=== PATIENT | female | born 1935 | race Caucasian/White ===

== ENCOUNTER 2018-11-18 14:39 | Inpatient (IN) | payer MEDICARE, MEDICAID, SELFPAY ==
[2018-11-18] VITALS (15 sets, daily range): BP systolic 83–108; BP diastolic 35–73; PULSE 82–136; RESP 15–24; TEMP 36.9; O2SAT 92–99; BMI 30.9; BMI 29.7; BMI 29.8
--- NOTE | 2018-11-18 15:21 | EKG12_ITS ---
Test Reason : AFIB Blood Pressure : / mmHG Vent. Rate : 131 BPM Atrial Rate : 141 BPM P-R Int : 000 ms QRS Dur : 068 ms QT Int : 278 ms P-R-T Axes : 000 022 196 degrees QTc Int : 410 ms Atrial fibrillation with rapid ventricular response ST & T wave abnormality, consider inferior ischemia Abnormal ECG Confirmed by JUNO GEORGE, GEMA ([id number]), editor publications ESTEPHANIA WRIGHT ([id number]) on 11/21/2018 10:48:10 AM Referred By: SHANTEL Confirmed By:GEMA FRAIRE MD
--- NOTE | 2018-11-18 15:30 | ED.DCSUM_ITS ---
- ER Visit Summary Date of Service: 11/18/18 Chief Complaint: A. fib with RVR History of Present Illness: The patient is a 83 M presenting with A. fib with RVR. Patient was in sinus rhythm at the start of dialysis and by the end of dialysis she was in A. fib with RVR. She states she has felt chills and ge neralized weakness. She has a mild cough. She denies chest pain or shortness of breath. She otherwise feels at her baseline. She has history of A. fib but is not chronically in A. fib. Physical Examination: Blood pressure 84/71, heart rate 136, respiratory rate 24. Patient is afebrile. Alert no acute distress. HEENT exam is unremarkable. Neck is supple. Lungs are clear and equal bilaterally. Heart is irregularly irregular Abdomen is soft nontender nondistended. Extremities are unremarkable. Skin is warm and dry. No focal neurologic deficit. Remainder of exam is unremarkable. Emergency Department Course and Treatment: EKG A. fib with RVR rate of [address] depression. She was given a 250 cc IV fluid bolus and digoxin IV. She has allergies to calcium channel blockers and beta-blockers. Chest xray shows small bilateral effusions worse on the left side with left lower lobe atelectasis and/or infiltrate and right basilar atelectasis. This is all superimposed on CHF. CBC shows white count 15.6, hemoglobin 10.2. Chemistries show chloride 95, CO2 33, glucose 140, creatinine 3.15. Troponin 0.050. Lactic acid 2.1. Patient has subjective fever, white count, cough and possible infiltrate on chest x-ray. Her systolic pressure is in the high 90s with a heart rate 115 range. Discussed with the hospitalist who recommends amiodarone drip. This was started in the ED. Blood cultures were sent and she was given Invanz IV. Patient will be admitted. Disposition: Admission Impression: A. fib with RVR, end-stage renal disease, CAP This note was generated with MD Revolution dictation software. It may contain incorrect words, spelling, and punctuation that were not noted in review of the chart prior to signing
--- NOTE | 2018-11-18 15:34 | RAD_ITS ---
STUDY: X-RAY CHEST REASON FOR EXAM: Male, 83 years old. Chest pain and shortness of breath. TECHNIQUE: Single AP portable view of the chest. COMPARISON: None. FINDINGS: A right-sided double catheter is seen with the tip in the right atrium. EKG electrodes are seen. A left-sided portacatheter is present with the tip at the junction of the superior vena cava and right atrium. Small left pleural effusion with left basilar atelectasis and/or infiltration. This is superimposed on mild degree of CHF. Mild degree of right basilar atelectasis and blunting of the right costo phrenic angle. There is mild cardiac enlargement. Normal mediastinum and andreina. Normal visualized pulmonary arteries. There is atherosclerotic calcification of the aortic arch with tortuosity. There are diffuse degenerative changes of the visualized thoracic spine. Normal visualized ribs, clavicles, and shoulders. There is no demonstrated abnormality of the visualized soft tissue structures of the upper abdomen. RAD/Chest 1 View (Portable) IMPRESSION: Small bilateral effusions worse on the left side with left lower lobe atelectasis and/or infiltrate and right basilar atelectasis. This is all superimposed on CHF. Electronically Signed: Donte Frankel, at 15:53 EDT , Service support ,
[2018-11-18] MEDS: Digoxin 250 MCG/ML Ampul IV ×2 (15:40→21:49)
[2018-11-18 15:51] LABS: Absolute Lymphocyte Count 1.28 X10^3/ul (0.83-4.51); Absolute Neutrophil Count 12.8 X10^3/uL (2.0-7.7); Basophil# 0.04 X10^3/uL; Basophil% 0.3 % (0-1); Eosinophil# 0.19 X10^3/uL; Eosinophils% 1.2 % (0-5); Hematocrit 36.7 % (40-54); Hemoglobin 10.2 g/dl (13.0-16.5); Lymphocyte # 1.28 X10^3/ul (4.0); Lymphocyte % 8.2 % (19-41); Mean Corp Hgb Conc 27.8 g/gl (32-36); Mean Corpuscular Hgb 28.5 pg (27.0-32.0); Mean Corpuscular Volume 102.5 fL (80-94); Mean Platelet Vol. 9.5 fl (6.2-12.0); Monocyte% 7.7 % (0-10); Neutrophil # 12.81 X10^3/uL (2.7-7.7); Platelet Count 345 K/mm3 (150-450); RBC Distribution Width CV 19.8 % (11.6-14.6); RBC Distribution Width SD 72.9 fl (35.1-43.9); Red Blood Count 3.58 M/mm3 (4.6-6.2); White Blood Count 15.6 K/mm3 (4.4-11.0)
[2018-11-18 15:55] LABS: Differential Indicated SCAN CRITERIA MET; POSITIVE COUNT NO; POSITIVE DIFFERENTIAL NO; POSITIVE MORPHOLOGY YES
[2018-11-18 15:59] LABS: Anion Gap 11 (5-15); BUN 14 mg/dL (7-18); BUN/Creat Ratio 4.4 RATIO (10-20); Calcium,Total 8.6 mg/dL (8.5-10.1); Chloride 95 mmol/L (98-107); Creatinine, Serum 3.15 mg/dL (0.70-1.30); EST Glomerular Filtration Rate 20 mL/min (>60); Est Glom Filt Rate - Afr Amer 25 mL/min (>60); Estimated Creatinine Clearance 13.01 ml/min; Glucose 140 mg/dL (74-106); Sodium Level 139 mmol/L (136-145)
[2018-11-18 16:07] LABS: Lactic Acid 2.1 mmol/L (0.4-2.0)
--- NOTE | 2018-11-18 16:11 | ED.RN ---
notified Dr. Nolasco of lactic 2.1
[2018-11-18 16:22] LABS: Differential Comment SCANNED
[2018-11-18 16:33] LABS: International Normalized Ratio 2.9; Prothrombin Time (Protime)PT. 30.8 SECONDS (11.7-14.9)
--- NOTE | 2018-11-18 17:14 | PCM.HP.STD ---
<Mckay Hogan - Last Filed: 11/18/18 17:39> Problem List (1) Atrial fibrillation with RVR Status: Acute (2) Pneumonia Status: Acute (3) Severe sepsis Status: Acute (4) Diabetes Status: Chronic Qualifiers: Diabetes mellitus type: type 2 (5) ESRD (end stage renal disease) Status: Chronic (6) COPD (chronic obstructive pulmonary disease) Status: Chronic (7) Iron deficiency anemia Status: Chronic (8) HLD (hyperlipidemia) Status: Chronic (9) CHF (congestive heart failure) Status: Chronic (10) Chronic respiratory failure with hypoxia Status: Chronic History of Present Illness Date of Admission: 11/18/18 Chief Complaint: chills The patient is a 83 year old F with pmhx of paroxysmal afib, ESRD, CHF (unclear subtype), COPD, chronic hypoxic respiratory failure, chronic anemia, DMt2, who presents to the ER from [facility] with c/o chills. She was recently admitted to [facility] and in the ICU for 11 days being treated for pneumonia and CHF, and was DCd to [facility]. This morning she woke up with chills and went to dialysis, told she did not look right and was sent to the ER. She was found to have Afib with RVR. She also appeared to have septic with leukocytosis, tachycardia, lactic acidosis, + tachypnea. She has an ongoing productive cough which started this past week, and is mildly SOB - although she is not hypoxic with her home dose of O2 - 2 lpm via NC. She was given digoxin in the ER and is starting amio, still tachy into the 110-120 range during interview. She has no chest pain or palpitations. She takes toprol despite her listed metoprolol allergy. 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 She denies dysuria, but her family states that she gets frequent UTI's despite not feeling dysuria. She does do dialysis here in [place] however her lens hardener does not come here. She reiterated her desire to be DNR CCA with no CPR/Intubation, confirmed with family present. [] Past Medical History Past Medical History (Chronic Problems): Chronic Problems Diabetes (Chronic) ESRD (end stage renal disease) (Chronic) COPD (chronic obstructive pulmonary disease) (Chronic) Iron deficiency anemia (Chronic) HLD (hyperlipidemia) (Chronic) CHF (congestive heart failure) (Chronic) Chronic respiratory failure with hypoxia (Chronic) Allergies amlodipine [From Norvasc] Allergy (Verified 11/18/18 15:12) Other atorvastatin [From Lipitor] Allergy (Verified 11/18/18 15:12) Other ciprofloxacin [From Cipro] Allergy (Verified 11/18/18 15:12) Other fentanyl Allergy (Verified 11/18/18 15:12) Other metoprolol [From Lopressor] Allergy (Verified 11/18/18 15:12) Other morphine Allergy (Verified 11/18/18 15:12) Other prochlorperazine [From Compazine] Allergy (Verified 11/18/18 15:12) Other rofecoxib [From Vioxx] Allergy (Verified 11/18/18 15:12) Other rosuvastatin [From Crestor] Allergy (Verified 11/18/18 15:12) Other Home Medications: Ambulatory Orders Medication Instructions Recorded Acetaminophen [Tylenol] 650 mg PO Q4H PRN PRN 11/18/18 Ascorbic Acid [Vitamin C] 500 mg PO DAILY@0800 11/18/18 Aspirin [Aspirin, Baby] 81 mg PO DAILY@0800 11/18/18 Atorvastatin Calcium [Lipitor] 40 mg PO QHS 11/18/18 Cholecalciferol (VIT D3) [Vitamin 1,000 unit PO DAILY 11/18/18 D] Docusate Sodium [Colace] 100 mg PO BID 11/18/18 Ferrous Sulfate [Iron] 325 mg PO DAILY 11/18/18 Gabapentin [Neurontin] 100 mg PO DAILY 11/18/18 Insulin Detemir [Levemir Flextouch] 8 unit SQ DAILY 11/18/18 Melatonin/Pyridoxine HCl (B6) 1 each PO QHS 11/18/18 [Melatonin 1 mg Tablet] Metoprolol Succinate [Toprol Xl] 50 mg PO BID 11/18/18 Multivitamin with Minerals 1 tab PO DAILY 11/18/18 [Multiple Vitamin] Omeprazole 20 mg PO DAILY 11/18/18 Rivaroxaban [Xarelto] 15 mg PO DAILY 11/18/18 Surgical History: hysterectomy, - - Left knee, Right leg, C sections Psychiatric History: No pertinent psych hx GUEST RELATIONS COORDINATOR History: No pertinent GUEST RELATIONS COORDINATOR history Lives: Care Home Smoking Status: Never smoker Tobacco Use: Non-smoker Alcohol: None Drugs: None - *Family History Maternal History Items: Stroke Paternal History Items: Cancer - leukemia Review of Systems Constitutional: Reports: Chills, Weakness, Fatigue. Denies: Fever, Weight Change HEENT: Denies: Head Aches, Sinus Congestion, Sinus Drainage Cardiovascular: Denies: Chest Pain, Chest Pressure, Chest Tightness, Edema, Heaviness, Light Headedness, Palpitations, Syncope Respiratory: Reports: Cough, Shortness of Breath, Shortness of breath at rest, Shortness of breath upon exertion, Sputum production. Denies: Wheezing Gastrointestinal: Denies: Abdominal Pain, Diarrhea, Nausea, Vomiting Genitourinary: Denies: Dysuria, Frequency, Urgency Musculoskeletal: Denies: Joint Pain, Joint Tenderness Skin: Denies: Rash, Wounds Neurological: Denies: Numbness, Tingling, Focal weakness Psychiatric: Denies: Anxiety, Depression, Homicidal Ideations, Suicidal Ideations Hematologic/ Lymphatic: Denies: Easy Bruising, Easy Bleeding VTE Information - Inpt Only VTE Present on Admission: No VTE Mechan Device Prophylaxis: None VTE Pharm Prophylaxis ordered?: Yes Patient Problems: Active and Suspected Problems Atrial fibrillation with RVR (Acute) Pneumonia (Acute) Severe sepsis (Acute) - Physical Exam General: Alert, Oriented x3, Cooperative HEENT: Atraumatic, PERRLA, EOMI, Normocephalic Neck: Supple, No JVD, Negative Carotid Bruits Lungs: Diminished, Rales Cardiovascular: Regular rate, No murmurs Abdomen: Bowel Sounds Present, Soft, Non Tender Extremities: No edema, Capillary Refill Less than 3 Seconds Skin: No rashes, No breakdown Musculoskeletal: No Tenderness to Palpation of Joints or Extremities Neurological: Cranial nerves II-XII grossly intact Psych/Mental Status: Normal Affect, Appropriate Vital Signs Temp Pulse Resp BP Pulse Ox 98.4 F 127 H 17 93/73 99 11/18/18 14:40 11/18/18 15:47 11/18/18 15:47 11/18/18 15:47 11/18/18 15:47 Oxygen Flow Rate (L/min) 2 Oxygen Delivery Method Nasal Cannula Weight: 158 lb 11.725 oz Body Mass Index (BMI) 30.9 Microbiology Past 72 Hours 11/18/18 15:35 Influenza Types A,B Direct FA (RAEGAN) - Final Mucosa - Nose Laboratory Tests Past 24 Hrs 11/18/18 11/18/18 11/18/18 15:30 15:30 15:30 WBC 15.6 H RBC 3.58 L Hgb 10.2 L Hct 36.7 L MCV 102.5 H MCH 28.5 MCHC 27.8 L RDW 19.8 H RDW Differential 72.9 H Plt Count 345 MPV 9.5 Immature Gran % (Auto) 0.600 Neut % (Auto) 82.0 H Lymph % (Auto) 8.2 L Andrew % (Auto) 7.7 Eos % (Auto) 1.2 Baso % (Auto) 0.3 Absolute Neuts (auto) 12.8 H Absolute Lymphs (auto) 1.28 Total Counted Not Reportable Differential Comment SCANNED PT INR Sodium 139 Potassium 4.0 Chloride 95 L Carbon Dioxide 33.0 H Anion Gap 11 BUN 14 Creatinine 3.15 H Estim Creat Clear Calc 13.01 Est GFR (MDRD) Af Amer 25 L Est GFR (MDRD) Non-Af 20 L BUN/Creatinine Ratio 4.4 L Glucose 140 H Lactic Acid 2.1 H Calcium 8.6 Troponin I 0.050 H 11/18/18 15:30 WBC RBC Hgb Hct MCV MCH MCHC RDW RDW Differential Plt Count MPV Immature Gran % (Auto) Neut % (Auto) Lymph % (Auto) Andrew % (Auto) Eos % (Auto) Baso % (Auto) Absolute Neuts (auto) Absolute Lymphs (auto) Total Counted Differential Comment PT 30.8 H INR 2.9 Sodium Potassium Chloride Carbon Dioxide Anion Gap BUN Creatinine Estim Creat Clear Calc Est GFR (MDRD) Af Amer Est GFR (MDRD) Non-Af BUN/Creatinine Ratio Glucose Lactic Acid Calcium Troponin I Assessment/Plan All Active Problems Atrial fibrillation with RVR (Acute) Pneumonia (Acute) Severe sepsis (Acute) 1. Afib with RVR - likely 2/2 sepsis. Continue metoprolol. Received dig in ER, started amiodarone ER. No palpitations. Already on Xarelto. 2. Acute severe sepsis secondary to suspected healthcare associated pneumonia-was recently admitted to [facility] and in the ICU for 11 days with pneumonia and congestive heart failure and discharged 2 weeks ago. She does have a productive cough that developed this past week, and woke up with significant chills today. She does have significant leukocytosis and signs of sepsis including lactic acidosis, tachypnea, tachycardia. There is also possibility that this could be driven by urinary tract infection as she frequently has these in the past. will check urinalysis and culture. Received meropenem in the ER. We will continue antibiotics with vancomycin and Zosyn. MRSA screen, culture sputum, check urine antigens, blood culture pending. 3. End-stage renal disease-consult nephrology for ongoing dialysis 4. Hx CHF unclear subtype - no increased LE edema, CXR shows CHF however no hypoxia at this time. Check BNP, obtain records including echo from recent stay at [facility]. 5. COPD with chronic hypoxic respiratory failure - this does not appear to be an acute exacerbation. Continue aerosols, incentive spirometer. Baseline O2 is 2lpm NC. 6. T2DM with obesity - continue levemir, add SSI, dietary eval 7. Debility - SNF resident - return at DC 8. Iron def. anemia - continue po iron 9. HLD - on statin CODE STATUS: discussed with family + patient DNRCCA no CPR no intubation. DVT ppx: on xarelto DC planning: return to snf This patient was seen by Mckay Hogan PA-C under the supervision of Doctor Luigi. <Sanchez Meyers - Last Filed: 11/18/18 21:34> History of Present Illness The patient is a 83 year old F with multiple comorbidities as listed above was sent to ER from initiated on SNF for chills mild shortness of breath after she completed dialysis. Patient did not had subjective feeling of shortness of breath, chest tightness, flulike symptoms, fever. She was recently discharged from [facility] as mentioned above. Labs are abnormal for leukocytosis, 15.6 thousand with left shift, lactic acid 2.1, mildly elevated troponin. She is on hemodialysis [] Past Medical History Allergies amlodipine [From Norvasc] Allergy (Verified 11/18/18 15:12) Other atorvastatin [From Lipitor] Allergy (Verified 11/18/18 15:12) Other ciprofloxacin [From Cipro] Allergy (Verified 11/18/18 15:12) Other fentanyl Allergy (Verified 11/18/18 15:12) Other metoprolol [From Lopressor] Allergy (Verified 11/18/18 15:12) Other morphine Allergy (Verified 11/18/18 15:12) Other prochlorperazine [From Compazine] Allergy (Verified 11/18/18 15:12) Other rofecoxib [From Vioxx] Allergy (Verified 11/18/18 15:12) Other rosuvastatin [From Crestor] Allergy (Verified 11/18/18 15:12) Other - Physical Exam General: Alert, Oriented x3, Cooperative HEENT: Atraumatic, PERRLA, EOMI, Normocephalic Neck: Supple, No JVD, Negative Carotid Bruits Lungs: Diminished - Air entry is diminished bilaterally., Rales, Short of Breath - Mild short of breath Cardiovascular: Normal S1, Normal S2, No murmurs, Irregular Rate, Tachycardic Abdomen: Bowel Sounds Present, Soft, Non Tender, Non-Distended Extremities: No edema, Capillary Refill Less than 3 Seconds, Edema Skin: No rashes, No breakdown, - - Mild redness nonblanching erythema on bilateral heels, stage I decubitus ulcer. Musculoskeletal: No Tenderness to Palpation of Joints or Extremities, Arthritic Changes, Muscle Wasting Lymphatic: Cervical Adenopathy Neurological: Cranial nerves II-XII grossly intact, Deep Tendon Reflexes 2+/4 and Symmetrical, Neuro grossly intact Psych/Mental Status: Normal Affect, Appropriate Vital Signs Temp Pulse Resp BP Pulse Ox 98.4 F 95 19 H 93/38 L 97 11/18/18 14:40 11/18/18 21:00 11/18/18 21:00 11/18/18 21:00 11/18/18 21:00 Oxygen Flow Rate (L/min) 1 Oxygen Delivery Method Nasal Cannula Weight: 152 lb 5.431 oz Body Mass Index (BMI) 29.7 Microbiology Past 72 Hours 11/18/18 15:35 Influenza Types A,B Direct FA (RAEGAN) - Final Mucosa - Nose Laboratory Tests Past 24 Hrs 11/18/18 11/18/18 11/18/18 15:30 15:30 15:30 WBC 15.6 H RBC 3.58 L Hgb 10.2 L Hct 36.7 L MCV 102.5 H MCH 28.5 MCHC 27.8 L RDW 19.8 H RDW Differential 72.9 H Plt Count 345 MPV 9.5 Immature Gran % (Auto) 0.600 Neut % (Auto) 82.0 H Lymph % (Auto) 8.2 L Andrew % (Auto) 7.7 Eos % (Auto) 1.2 Baso % (Auto) 0.3 Absolute Neuts (auto) 12.8 H Absolute Lymphs (auto) 1.28 Total Counted Not Reportable Differential Comment SCANNED PT INR Sodium 139 Potassium 4.0 Chloride 95 L Carbon Dioxide 33.0 H Anion Gap 11 BUN 14 Creatinine 3.15 H Estim Creat Clear Calc 13.01 Est GFR (MDRD) Af Amer 25 L Est GFR (MDRD) Non-Af 20 L BUN/Creatinine Ratio 4.4 L Glucose 140 H Lactic Acid 2.1 H Calcium 8.6 Troponin I 0.050 H B-Natriuretic Peptide MRSA (PCR) 11/18/18 11/18/18 11/18/18 15:30 15:30 19:15 WBC RBC Hgb Hct MCV MCH MCHC RDW RDW Differential Plt Count MPV Immature Gran % (Auto) Neut % (Auto) Lymph % (Auto) Andrew % (Auto) Eos % (Auto) Baso % (Auto) Absolute Neuts (auto) Absolute Lymphs (auto) Total Counted Differential Comment PT 30.8 H INR 2.9 Sodium Potassium Chloride Carbon Dioxide Anion Gap BUN Creatinine Estim Creat Clear Calc Est GFR (MDRD) Af Amer Est GFR (MDRD) Non-Af BUN/Creatinine Ratio Glucose Lactic Acid Calcium Troponin I 0.071 H B-Natriuretic Peptide 702.7 H MRSA (PCR) 11/18/18 11/18/18 20:05 20:50 WBC RBC Hgb Hct MCV MCH MCHC RDW RDW Differential Plt Count MPV Immature Gran % (Auto) Neut % (Auto) Lymph % (Auto) Andrew % (Auto) Eos % (Auto) Baso % (Auto) Absolute Neuts (auto) Absolute Lymphs (auto) Total Counted Differential Comment PT INR Sodium Potassium Chloride Carbon Dioxide Anion Gap BUN Creatinine Estim Creat Clear Calc Est GFR (MDRD) Af Amer Est GFR (MDRD) Non-Af BUN/Creatinine Ratio Glucose Lactic Acid 1.6 Calcium Troponin I B-Natriuretic Peptide MRSA (PCR) Pending Assessment/Plan This patient was seen in conjunction with Mckay AZEVEDO. I have independently interviewed and examined the patient and reviewed pertinent history, examination findings, laboratory and plan of management. I have reviewed the note and agree with the documented findings with the few additional points. In brief, patient is admitted for A. fib with RVR probably related to sepsis although exact focus is unclear. Patient running low blood pressure in the upper 90s. On amiodarone drip. Patient is allergic to beta-graeme and calcium channel graeme. If the blood pressure drops, MAP BP less than 65 mmHg, give digoxin 0.25 mg IV 1 dose. Patient on Xarelto. Consult cardiology for A. fib difficult to control heart rate and maintain blood pressure. Landscape Crew Leader is consulted. I have discussed my assessment with Mckay AZEVEDO and orders have been reviewed. Code Visit Inpatient E&M: 58161 Init Hosp L3
--- NOTE | 2018-11-18 17:34 | HP.PCM_ITS ---
<Mckay Hogan - Last Filed: 11/18/18 17:39> Problem List (1) Atrial fibrillation with RVR Status: Acute (2) Pneumonia Status: Acute (3) Severe sepsis Status: Acute (4) Diabetes Status: Chronic Qualifiers: Diabetes mellitus type: type 2 (5) ESRD (end stage renal disease) Status: Chronic (6) COPD (chronic obstructive pulmonary disease) Status: Chronic (7) Iron deficiency anemia Status: Chronic (8) HLD (hyperlipidemia) Status: Chronic (9) CHF (congestive heart failure) Status: Chronic (10) Chronic respiratory failure with hypoxia Status: Chronic History of Present Illness Date of Admission: 11/18/18 Chief Complaint: chills The patient is a 83 year old F with pmhx of paroxysmal afib, ESRD, CHF (unclear subtype), COPD, chronic hypoxic respiratory failure, chronic anemia, DMt2, who presents to the ER from [facility] with c/o chills. She was recently admitted to [facility] and in the ICU for 11 days being treated for pneumonia and CHF, and was DCd to SNF. This morning she woke up with chills and went to d ialysis, told she did not look right and was sent to the ER. She was found to have Afib with RVR. She also appeared to have septic with leukocytosis, tachycardia, lactic acidosis, + tachypnea. She has an ongoing productive cough which started this past week, and is mildly SOB - although she is not hypoxic with her home dose of O2 - 2 lpm via NC. She was given digoxin in the ER and is starting amio, still tachy into the 110-120 range during interview. She has no chest pain or palpitations. She takes toprol despite her listed metoprolol allergy. Her endband sizer is in [place]. She denies dysuria, but her family states that she gets frequent UTI's despite not feeling dysuria. She does do dialysis here in [place] however her milk bottler does not come here. She reiterated her desire to be DNR CCA with no CPR/Intubation, confirmed with family present. [] Past Medical History Past Medical History (Chronic Problems): Chronic Problems Diabetes (Chronic) ESRD (end stage renal disease) (Chronic) COPD (chronic obstructive pulmonary disease) (Chronic) Iron deficiency anemia (Chronic) HLD (hyperlipidemia) (Chronic) CHF (congestive heart failure) (Chronic) Chronic respiratory failure with hypoxia (Chronic) Allergies amlodipine [From Norvasc] Allergy (Verified 11/18/18 15:12) Other atorvastatin [From Lipitor] Allergy (Verified 11/18/18 15:12) Other ciprofloxacin [From Cipro] Allergy (Verified 11/18/18 15:12) Other fentanyl Allergy (Verified 11/18/18 15:12) Other metoprolol [From Lopressor] Allergy (Verified 11/18/18 15:12) Other morphine Allergy (Verified 11/18/18 15:12) Other prochlorperazine [From Compazine] Allergy (Verified 11/18/18 15:12) Other rofecoxib [From Vioxx] Allergy (Verified 11/18/18 15:12) Other rosuvastatin [From Crestor] Allergy (Verified 11/18/18 15:12) Other Home Medications: Ambulatory Orders Medication Instructions Recorded Acetaminophen [Tylenol] 650 mg PO Q4H PRN PRN 11/18/18 Ascorbic Acid [Vitamin C] 500 mg PO DAILY@0800 11/18/18 Aspirin [Aspirin, Baby] 81 mg PO DAILY@0800 11/18/18 Atorvastatin Calcium [Lipitor] 40 mg PO QHS 11/18/18 Cholecalciferol (VIT D3) [Vitamin 1,000 unit PO DAILY 11/18/18 D] Docusate Sodium [Colace] 100 mg PO BID 11/18/18 Ferrous Sulfate [Iron] 325 mg PO DAILY 11/18/18 Gabapentin [Neurontin] 100 mg PO DAILY 11/18/18 Insulin Detemir [Levemir Flextouch] 8 unit SQ DAILY 11/18/18 Melatonin/Pyridoxine HCl (B6) 1 each PO QHS 11/18/18 [Melatonin 1 mg Tablet] Metoprolol Succinate [Toprol Xl] 50 mg PO BID 11/18/18 Multivitamin with Minerals 1 tab PO DAILY 11/18/18 [Multiple Vitamin] Omeprazole 20 mg PO DAILY 11/18/18 Rivaroxaban [Xarelto] 15 mg PO DAILY 11/18/18 Surgical History: hysterectomy, - - Left knee, Right leg, C sections Psychiatric History: No pertinent psych hx DIGESTER HAND History: No pertinent DIGESTER HAND history Lives: [facility] Smoking Status: Never smoker Tobacco Use: Non-smoker Alcohol: None Drugs: None - *Family History Maternal History Items: Stroke Paternal History Items: Cancer - leukemia Review of Systems Constitutional: Reports: Chills, Weakness, Fatigue. Denies: Fever, Weight Change HEENT: Denies: Head Aches, Sinus Congestion, Sinus Drainage Cardiovascular: Denies: Chest Pain, Chest Pressure, Chest Tightness, Edema, Heaviness, Light Headedness, Palpitations, Syncope Respiratory: Reports: Cough, Shortness of Breath, Shortness of breath at rest, Shortness of breath upon exertion, Sputum production. Denies: Wheezing Gastrointestinal: Denies: Abdominal Pain, Diarrhea, Nausea, Vomiting Genitourinary: Denies: Dysuria, Frequency, Urgency Musculoskeletal: Denies: Joint Pain, Joint Tenderness Skin: Denies: Rash, Wounds Neurological: Denies: Numbness, Tingling, Focal weakness Psychiatric: Denies: Anxiety, Depression, Homicidal Ideations, Suicidal Ideations Hematologic/ Lymphatic: Denies: Easy Bruising, Easy Bleeding VTE Information - Inpt Only VTE Present on Admission: No VTE Mechan Device Prophylaxis: None VTE Pharm Prophylaxis ordered?: Yes Patient Problems: Active and Suspected Problems Atrial fibrillation with RVR (Acute) Pneumonia (Acute) Severe sepsis (Acute) - Physical Exam General: Alert, Oriented x3, Cooperative HEENT: Atraumatic, PERRLA, EOMI, Normocephalic Neck: Supple, No JVD, Negative Carotid Bruits Lungs: Diminished, Rales Cardiovascular: Regular rate, No murmurs Abdomen: Bowel Sounds Present, Soft, Non Tender Extremities: No edema, Capillary Refill Less than 3 Seconds Skin: No rashes, No breakdown Musculoskeletal: No Tenderness to Palpation of Joints or Extremities Neurological: Cranial nerves II-XII grossly intact Psych/Mental Status: Normal Affect, Appropriate Vital Signs Temp Pulse Resp BP Pulse Ox 98.4 F 127 H 17 93/73 99 11/18/18 14:40 11/18/18 15:47 11/18/18 15:47 11/18/18 15:47 11/18/18 15:47 Oxygen Flow Rate (L/min) 2 Oxygen Delivery Method Nasal Cannula Weight: 158 lb 11.725 oz Body Mass Index (BMI) 30.9 Microbiology Past 72 Hours 11/18/18 15:35 Influenza Types A,B Direct FA (RAEGAN) - Final Mucosa - Nose Laboratory Tests Past 24 Hrs 11/18/18 11/18/18 11/18/18 15:30 15:30 15:30 WBC 15.6 H RBC 3.58 L Hgb 10.2 L Hct 36.7 L MCV 102.5 H MCH 28.5 MCHC 27.8 L RDW 19.8 H RDW Differential 72.9 H Plt Count 345 MPV 9.5 Immature Gran % (Auto) 0.600 Neut % (Auto) 82.0 H Lymph % (Auto) 8.2 L [place] % (Auto) 7.7 Eos % (Auto) 1.2 Baso % (Auto) 0.3 Absolute Neuts (auto) 12.8 H Absolute Lymphs (auto) 1.28 Total Counted Not Reportable Differential Comment SCANNED PT INR Sodium 139 Potassium 4.0 Chloride 95 L Carbon Dioxide 33.0 H Anion Gap 11 BUN 14 Creatinine 3.15 H Estim Creat Clear Calc 13.01 Est GFR (MDRD) Af Amer 25 L Est GFR (MDRD) Non-Af 20 L BUN/Creatinine Ratio 4.4 L Glucose 140 H Lactic Acid 2.1 H Calcium 8.6 Troponin I 0.050 H 11/18/18 15:30 WBC RBC Hgb Hct MCV MCH MCHC RDW RDW Differential Plt Count MPV Immature Gran % (Auto) Neut % (Auto) Lymph % (Auto) [place] % (Auto) Eos % (Auto) Baso % (Auto) Absolute Neuts (auto) Absolute Lymphs (auto) Total Counted Differential Comment PT 30.8 H INR 2.9 Sodium Potassium Chloride Carbon Dioxide Anion Gap BUN Creatinine Estim Creat Clear Calc Est GFR (MDRD) Af Amer Est GFR (MDRD) Non-Af BUN/Creatinine Ratio Glucose Lactic Acid Calcium Troponin I Assessment/Plan All Active Problems Atrial fibrillation with RVR (Acute) Pneumonia (Acute) Severe sepsis (Acute) 1. Afib with RVR - likely 2/2 sepsis. Continue metoprolol. Received dig in ER, started amiodarone ER. No palpitations. Already on Xarelto. 2. Acute severe sepsis secondary to suspected healthcare associated pneumonia- was recently admitted to [facility] and in the ICU for 11 days with pneumonia and congestive heart failure and discharged 2 weeks ago. She does have a productive cough that developed this past week, and woke up with significant chills today. She does have significant leukocytosis and signs of sepsis including lactic acidosis, tachypnea, tachycardia. There is also possibility that this could be driven by urinary tract infection as she frequently has these in the past. will check urinalysis and culture. Received meropenem in the ER. We will continue antibiotics with vancomycin and Zosyn. MRSA screen, culture sputum, check urine antigens, blood culture pending. 3. End-stage renal disease-consult nephrology for ongoing dialysis 4. Hx CHF unclear subtype - no increased LE edema, CXR shows CHF however no hypoxia at this time. Check BNP, obtain records including echo from recent stay at [facility]. 5. COPD with chronic hypoxic respiratory failure - this does not appear to be an acute exacerbation. Continue aerosols, incentive spirometer. Baseline O2 is 2lpm NC. 6. T2DM with obesity - continue levemir, add SSI, dietary eval 7. Debility - SNF resident - return at DC 8. Iron def. anemia - continue po iron 9. HLD - on statin CODE STATUS: discussed with family + patient DNRCCA no CPR no intubation. DVT ppx: on xarelto DC planning: return to snf This patient was seen by Mckay Hogan PA-C under the supervision of Doctor Luigi. <Sanchez Meyers - Last Filed: 11/18/18 21:34> History of Present Illness The patient is a 83 year old F with multiple comorbidities as listed above was sent to ER from initiated on SNF for chills mild shortness of breath after she completed dialysis. Patient did not had subjective feeling of shortness of breath, chest tightness, flulike symptoms, fever. She was recently discharged from [facility] as mentioned above. Labs are abnormal for leukocytosis, 15.6 thousand with left shift, lactic acid 2.1, mildly elevated troponin. She is on hemodialysis [] Past Medical History Allergies amlodipine [From Norvasc] Allergy (Verified 11/18/18 15:12) Other atorvastatin [From Lipitor] Allergy (Verified 11/18/18 15:12) Other ciprofloxacin [From Cipro] Allergy (Verified 11/18/18 15:12) Other fentanyl Allergy (Verified 11/18/18 15:12) Other metoprolol [From Lopressor] Allergy (Verified 11/18/18 15:12) Other morphine Allergy (Verified 11/18/18 15:12) Other prochlorperazine [From Compazine] Allergy (Verified 11/18/18 15:12) Other rofecoxib [From Vioxx] Allergy (Verified 11/18/18 15:12) Other rosuvastatin [From Crestor] Allergy (Verified 11/18/18 15:12) Other - Physical Exam General: Alert, Oriented x3, Cooperative HEENT: Atraumatic, PERRLA, EOMI, Normocephalic Neck: Supple, No JVD, Negative Carotid Bruits Lungs: Diminished - Air entry is diminished bilaterally., Rales, Short of Breath - Mild short of breath Cardiovascular: Normal S1, Normal S2, No murmurs, Irregular Rate, Tachycardic Abdomen: Bowel Sounds Present, Soft, Non Tender, Non-Distended Extremities: No edema, Capillary Refill Less than 3 Seconds, Edema Skin: No rashes, No breakdown, - - Mild redness nonblanching erythema on bilateral heels, stage I decubitus ulcer. Musculoskeletal: No Tenderness to Palpation of Joints or Extremities, Arthritic Changes, Muscle Wasting Lymphatic: Cervical Adenopathy Neurological: Cranial nerves II-XII grossly intact, Deep Tendon Reflexes 2+/4 and Symmetrical, Neuro grossly intact Psych/Mental Status: Normal Affect, Appropriate Vital Signs Temp Pulse Resp BP Pulse Ox 98.4 F 95 19 H 93/38 L 97 11/18/18 14:40 11/18/18 21:00 11/18/18 21:00 11/18/18 21:00 11/18/18 21:00 Oxygen Flow Rate (L/min) 1 Oxygen Delivery Method Nasal Cannula Weight: 152 lb 5.431 oz Body Mass Index (BMI) 29.7 Microbiology Past 72 Hours 11/18/18 15:35 Influenza Types A,B Direct FA (RAEGAN) - Final Mucosa - Nose Laboratory Tests Past 24 Hrs 11/18/18 11/18/18 11/18/18 15:30 15:30 15:30 WBC 15.6 H RBC 3.58 L Hgb 10.2 L Hct 36.7 L MCV 102.5 H MCH 28.5 MCHC 27.8 L RDW 19.8 H RDW Differential 72.9 H Plt Count 345 MPV 9.5 Immature Gran % (Auto) 0.600 Neut % (Auto) 82.0 H Lymph % (Auto) 8.2 L [place] % (Auto) 7.7 Eos % (Auto) 1.2 Baso % (Auto) 0.3 Absolute Neuts (auto) 12.8 H Absolute Lymphs (auto) 1.28 Total Counted Not Reportable Differential Comment SCANNED PT INR Sodium 139 Potassium 4.0 Chloride 95 L Carbon Dioxide 33.0 H Anion Gap 11 BUN 14 Creatinine 3.15 H Estim Creat Clear Calc 13.01 Est GFR (MDRD) Af Amer 25 L Est GFR (MDRD) Non-Af 20 L BUN/Creatinine Ratio 4.4 L Glucose 140 H Lactic Acid 2.1 H Calcium 8.6 Troponin I 0.050 H B-Natriuretic Peptide MRSA (PCR) 11/18/18 11/18/18 11/18/18 15:30 15:30 19:15 WBC RBC Hgb Hct MCV MCH MCHC RDW RDW Differential Plt Count MPV Immature Gran % (Auto) Neut % (Auto) Lymph % (Auto) [place] % (Auto) Eos % (Auto) Baso % (Auto) Absolute Neuts (auto) Absolute Lymphs (auto) Total Counted Differential Comment PT 30.8 H INR 2.9 Sodium Potassium Chloride Carbon Dioxide Anion Gap BUN Creatinine Estim Creat Clear Calc Est GFR (MDRD) Af Amer Est GFR (MDRD) Non-Af BUN/Creatinine Ratio Glucose Lactic Acid Calcium Troponin I 0.071 H B-Natriuretic Peptide 702.7 H MRSA (PCR) 11/18/18 11/18/18 20:05 20:50 WBC RBC Hgb Hct MCV MCH MCHC RDW RDW Differential Plt Count MPV Immature Gran % (Auto) Neut % (Auto) Lymph % (Auto) [place] % (Auto) Eos % (Auto) Baso % (Auto) Absolute Neuts (auto) Absolute Lymphs (auto) Total Counted Differential Comment PT INR Sodium Potassium Chloride Carbon Dioxide Anion Gap BUN Creatinine Estim Creat Clear Calc Est GFR (MDRD) Af Amer Est GFR (MDRD) Non-Af BUN/Creatinine Ratio Glucose Lactic Acid 1.6 Calcium Troponin I B-Natriuretic Peptide MRSA (PCR) Pending Assessment/Plan This patient was seen in conjunction with Mckay AZEVEDO. I have independently interviewed and examined the patient and reviewed pertinent history, examination findings, laboratory and plan of management. I have reviewed the note and agree with the documented findings with the few additional points. In brief, patient is admitted for A. fib with RVR probably related to sepsis although exact focus is unclear. Patient running low blood pressure in the up per 90s. On amiodarone drip. Patient is allergic to beta-graeme and calcium channel graeme. If the blood pressure drops, MAP BP less than 65 mmHg, give digoxin 0.25 mg IV 1 dose. Patient on Xarelto. Consult cardiology for A. fib difficult to control heart rate and maintain blood pressure. Site Damage Prevention Technician is consulted. I have discussed my assessment with Mckay AZEVEDO and orders have been reviewed. Code Visit Inpatient E&M: 64510 Init Hosp L3
[2018-11-18 17:58] LABS: BNP,B-Type NATRIURETIC PEPTIDE 702.7 pg/mL (0-100)
[2018-11-18] MEDS: Ipratropium/Albuterol Sulfate 3 ML AMPUL.NEB INHALATION (18:35)
--- NOTE | 2018-11-18 19:30 | PCM.RX.CS ---
Consult Pharmacy has been consulted to manage selected antiobiotic: Vancomycin Type of Consult: New start Suspected Infection: Sepsis, Pneumonia Labs: Sodium 139 mmol/L (136-145) 11/18/18 15:30 Potassium 4.0 mmol/L (3.5-5.1) 11/18/18 15:30 Chloride 95 mmol/L (98-107) L 11/18/18 15:30 Carbon Dioxide 33.0 mmol/L (21.0-32.0) H 11/18/18 15:30 Anion Gap 11 (5-15) 11/18/18 15:30 BUN 14 mg/dL (7-18) 11/18/18 15:30 Creatinine 3.15 mg/dL (0.70-1.30) H 11/18/18 15:30 Est GFR (MDRD) Af Amer 25 mL/min (>60) L 11/18/18 15:30 Est GFR (MDRD) Non-Af 20 mL/min (>60) L 11/18/18 15:30 BUN/Creatinine Ratio 4.4 RATIO (10-20) L 11/18/18 15:30 Glucose 140 mg/dL (74-106) H 11/18/18 15:30 Microbiology: Microbiology 11/18/18 15:35 Mucosa - Nose Influenza Types A,B Direct FA (RAEGAN) - Final Weight used for dosin lb 11.725 oz Estimated Creatinine Clearance: 13 Goal Trough: 15-20 mcg/mL Pharmacy Plan for Drug Dosing: Vancomycin initial dose of 1000mg ordered for 11/18 at 2000 Once patient's next dialysis in know a second dose will be entered and a random level ordered Pharmacy Service will continue to monitor and adjust dosing as required.
[2018-11-18 19:38] LABS: Reflex Lactate? Y
[2018-11-18] MEDS: Vancomycin IV 1,000 MG/200 ML BAG 200 MG IV (20:05)
[2018-11-18 20:54] LABS: Lactic Acid 1.6 mmol/L (0.4-2.0)
[2018-11-18] MEDS: Insulin Lispro 100 UNIT/ML INSULN.PEN SC (21:42)
[2018-11-18] MEDS: guaiFENesin 1,200 MG Tablet 1200 MG PO (21:42)
[2018-11-18] MEDS: Atorvastatin Calcium 40 MG Tablet PO (21:42)
[2018-11-18] MEDS: 0.9% NaCl Peripheral Flush Adult/Peds IV (21:43)
[2018-11-18 21:45] LABS: Bedside Glucose 192 mg/dL (70-110)
[2018-11-18 22:56] LABS: M R Staph aureus DNA By PCR Negative (Negative); Probe Check PASS; Specimen Processing Control PASS
[2018-11-19] VITALS (20 sets, daily range): BP systolic 91–109; BP diastolic 34–53; PULSE 76–108; RESP 14–20; TEMP 36.7–37.1; O2SAT 96–100
[2018-11-19] MEDS: 0.9% NaCl Peripheral Flush Adult/Peds IV (04:29)
--- NOTE | 2018-11-19 05:55 | ECHOD_ITS ---
Reason For Study: SOB/AFIB Procedure This was a 2D Doppler, Color Flow transthoracic echocardiogram. Exam performed in department. Left Ventricle Normal LV size. Mild concentric left ventricular hypertrophy. Left ventricular systolic function is normal. The estimated ejection fraction is 55 %. Unable to assess diastolic dysfunction due to arrhythmia. No regional wall motion abnormalities noted. Right Ventricle Normal RV size. Normal systolic function. Atria Normal left atrium. Normal right atrium. Mitral Valve There is mild mitral annular calcification. Tricuspid Valve Normal tricuspid valve. Mild to moderate (1-2+) tricuspid valve insufficiency. Pulmonary artery systolic pressure is 45 mmHg. Aortic Valve Trisinus/trileaflet aortic valve. Mild focal aortic valve calcification. Mild (1+) aortic valve insufficiency. Pulmonic Valve The pulmonic valve is not well visualized. Great Vessels Normal aortic root. The pulmonary artery is normal size. Inferior vena cava collapse with sniff. Pericardium/Pleural No pericardial effusion. MMode/2D Measurements & Calculations LVIDd: 3.0 cm IVSd: 1.3 cm LVOT diam: 1.9 cm LVIDs: 2.1 cm LVPWd: 1.3 cm LVOT area: 2.9 cm2 RVDd: 3.7 cm FS: 29.0 % Ao root diam: 3.7 cm LAV(MOD-bp): 44.7 ml LA A4 area: 15.2 cm2 LAV(MOD-bp) Indexed: 26.9 ml/m2 LAV(MOD-sp2): 61.8 ml LAV(MOD-sp4): 32.5 ml LA dimension(2D): 3.5 cm RA A4 area: 14.3 cm2 Time Measurements MV dec time: 0.16 sec Doppler Measurements & Calculations MV E max kimberley: 109.6 cm/sec Ao V2 max: 90.6 cm/sec AI max kimberley: 307.3 cm/sec Ao max P.3 mmHg AI max P.8 mmHg BERTO(V,D): 2.7 cm2 AI dec slope: 280.7 cm/sec2 AI P1/2t: 320.6 msec LV V1 max: 84.1 cm/sec PA V2 max: 83.2 cm/sec TR max kimberley: 322.3 cm/sec LV V1 max P.9 mmHg TR max P.6 mmHg Interpretation Summary Normal LV size. Mild concentric left ventricular hypertrophy. Left ventricular systolic function is normal. The estimated ejection fraction is 55 %. Unable to assess diastolic dysfunction due to arrhythmia. Pulmonary artery systolic pressure is 45 mmHg. Ordering Physician: Sanchez Meyers Performed By: Pia Bhatia, MACHO, RVT
[2018-11-19 06:13] LABS: Digoxin Level 2.61 ng/mL (0.80-2.00)
[2018-11-19 06:55] LABS: Bedside Glucose 88 mg/dL (70-110)
--- NOTE | 2018-11-19 06:58 | PCM.PROGNOTE ---
Patient Problems: Active and Suspected Problems Atrial fibrillation with RVR (Acute) Pneumonia (Acute) Severe sepsis (Acute) Subjective: Day #2 vancomycin and Zosyn The patient is an 83-year-old female with a past medical history of diabetes mellitus type 2, end-stage renal disease on hemodialysis, COPD, iron deficiency anemia, chronic anticoagulation with Xarelto, hyperlipidemia, congestive heart failure and chronic respiratory failure with hypoxemia who presented to the emergency room at [facility] on 11/18/2018 from [facility] complaining of chills. She was recently an inpatient at [facility] in the intensive care unit for 11 days. She was treated for pneumonia and congestive heart failure and was discharged to a snf facility. Vital signs upon arrival to the emergency room were temp 98.4, pulse rate 136, blood pressure 84/71, respiratory rate 24 and she was 92% saturated on a 3 L nasal cannula. White blood cell count was 15.6 with a left shift. Hemoglobin is 10.2 with an MCV of 102.5 and the platelets were within normal limits. Serum bicarb is increased at 33 and the BUN is 14 with a creatinine of 3.15. Chest x-ray showed small bilateral pleural effusions, left greater than right, with left lower lobe atelectasis and/or infiltrate. Digoxin level was toxic at 2.61 but, she was not on Dig at the CT. She had 2 doses of 250 mcg on 11/18/18. Influenza swab was negative. Lactic acid was 2.1. She was admitted to the hospital with a diagnosis of acute severe sepsis secondary to suspected healthcare associated pneumonia and started on vancomycin and Zosyn. All events the past 24 hours been reviewed. Afebrile since admission. Pressures have ranged from 84/71 at admission to 105/40 currently. Heart rate is now controlled. ECHO has been ordered for today Objective: PHYSICAL EXAM: GENERAL: alert, oriented X 3, Cooperative, NAD ORAL: moist mucosa, no mucosal lesions NECK: No JVD, supple, trachea midline LUNGS: CTA, symmetric chest expansion HEART: irreg in AF with rate 110-120, Normal S1 and S2, no rub, no gallop ABDOMEN: soft, NT, ND, BS present, no guarding with palpation EXTREMITIES: no edema, no cyanosis, no calf tenderness SKIN: No rashes, no breakdown NEUROLOGIC: no focal neurologic deficits PSYCH: appropriate, normal affect, pleasant - Physical Exam Vital Signs Temp Pulse Resp BP Pulse Ox 98.1 F 80 15 105/40 L 96 11/19/18 06:00 11/19/18 06:00 11/19/18 06:00 11/19/18 06:00 11/19/18 06:00 Oxygen Flow Rate (L/min) 1 Oxygen Delivery Method Nasal Cannula Weight: 152 lb 5.431 oz Body Mass Index (BMI) 29.7 Intake and Output for Last 24 Hours 11/17/18 11/18/18 11/19/18 23:59 23:59 23:59 Intake Total 615 / 615 404.7 / 404.7 Balance 615 / 615 404.7 / 404.7 Microbiology Past 72 Hours 11/18/18 15:35 Influenza Types A,B Direct FA (RAEGAN) - Final Mucosa - Nose Laboratory Tests Past 24 Hrs 11/18/18 11/18/18 11/18/18 15:30 15:30 15:30 WBC 15.6 H RBC 3.58 L Hgb 10.2 L Hct 36.7 L MCV 102.5 H MCH 28.5 MCHC 27.8 L RDW 19.8 H RDW Differential 72.9 H Plt Count 345 MPV 9.5 Immature Gran % (Auto) 0.600 Neut % (Auto) 82.0 H Lymph % (Auto) 8.2 L [place] % (Auto) 7.7 Eos % (Auto) 1.2 Baso % (Auto) 0.3 Absolute Neuts (auto) 12.8 H Absolute Lymphs (auto) 1.28 Total Counted Not Reportable Differential Comment SCANNED PT INR Sodium 139 Potassium 4.0 Chloride 95 L Carbon Dioxide 33.0 H Anion Gap 11 BUN 14 Creatinine 3.15 H Estim Creat Clear Calc 13.01 Est GFR (MDRD) Af Amer 25 L Est GFR (MDRD) Non-Af 20 L BUN/Creatinine Ratio 4.4 L Glucose 140 H Lactic Acid 2.1 H Calcium 8.6 Troponin I 0.050 H B-Natriuretic Peptide Digoxin MRSA (PCR) 11/18/18 11/18/18 11/18/18 15:30 15:30 19:15 WBC RBC Hgb Hct MCV MCH MCHC RDW RDW Differential Plt Count MPV Immature Gran % (Auto) Neut % (Auto) Lymph % (Auto) [place] % (Auto) Eos % (Auto) Baso % (Auto) Absolute Neuts (auto) Absolute Lymphs (auto) Total Counted Differential Comment PT 30.8 H INR 2.9 Sodium Potassium Chloride Carbon Dioxide Anion Gap BUN Creatinine Estim Creat Clear Calc Est GFR (MDRD) Af Amer Est GFR (MDRD) Non-Af BUN/Creatinine Ratio Glucose Lactic Acid Calcium Troponin I 0.071 H B-Natriuretic Peptide 702.7 H Digoxin MRSA (PCR) 11/18/18 11/18/18 11/18/18 20:05 20:50 22:20 WBC RBC Hgb Hct MCV MCH MCHC RDW RDW Differential Plt Count MPV Immature Gran % (Auto) Neut % (Auto) Lymph % (Auto) [place] % (Auto) Eos % (Auto) Baso % (Auto) Absolute Neuts (auto) Absolute Lymphs (auto) Total Counted Differential Comment PT INR Sodium Potassium Chloride Carbon Dioxide Anion Gap BUN Creatinine Estim Creat Clear Calc Est GFR (MDRD) Af Amer Est GFR (MDRD) Non-Af BUN/Creatinine Ratio Glucose Lactic Acid 1.6 Calcium Troponin I 0.083 H B-Natriuretic Peptide Digoxin MRSA (PCR) Negative 11/19/18 11/19/18 01:00 03:50 WBC RBC Hgb Hct MCV MCH MCHC RDW RDW Differential Plt Count MPV Immature Gran % (Auto) Neut % (Auto) Lymph % (Auto) [place] % (Auto) Eos % (Auto) Baso % (Auto) Absolute Neuts (auto) Absolute Lymphs (auto) Total Counted Differential Comment PT INR Sodium Potassium Chloride Carbon Dioxide Anion Gap BUN Creatinine Estim Creat Clear Calc Est GFR (MDRD) Af Amer Est GFR (MDRD) Non-Af BUN/Creatinine Ratio Glucose Lactic Acid Calcium Troponin I 0.068 H B-Natriuretic Peptide Digoxin 2.61 H* MRSA (PCR) POC Glucose 11/19/18 11/18/18 06:49 21:39 POC Glucose 88 192 H Medical Necessity - Tobacco Use Smoking Status: Never smoker Tobacco Use: Non-smoker Assessment/Plan All Active Problems Atrial fibrillation with RVR (Acute) Pneumonia (Acute) Severe sepsis (Acute) Impressions 1. AF with RVR 2. acute severe sepsis secondary to HCAP 3. End-stage renal disease on hemodialysis 4. Diabetes mellitus type 2 5. Hyperlipidemia Plan was discussed with Mckay Elizondo and orders have bee written. Appreciate cardiology input Code Visit Inpatient E&M: 28230 Subs Hosp L3
[2018-11-19] MEDS: Ipratropium/Albuterol Sulfate 3 ML AMPUL.NEB INHALATION ×3 (07:12→18:53)
--- NOTE | 2018-11-19 07:13 | PN_ITS ---
Patient Problems: Active and Suspected Problems Atrial fibrillation with RVR (Acute) Pneumonia (Acute) Severe sepsis (Acute) Subjective: Day #2 vancomycin and Zosyn The patient is an 83-year-old female with a past medical history of diabetes mellitus type 2, end-stage renal disease on hemodialysis, COPD, iron deficiency anemia, chronic anticoagulation with Xarelto, hyperlipidemia, congestive heart failure and chronic respiratory failure with hypoxemia who presented to the emergency room at [facility] on 11/18/2018 from [facility] complaining of chills. She was recently an inpatient at [facility] in the intensive care unit for 11 days. She was treated for pneumonia and congestive heart failure and was discharged to a correction facility. Vital signs upon arrival to the emergency room were temp 98.4, pulse rate 136, blood pressure 84/71, respiratory rate 24 and she was 92% saturated on a 3 L nasal cannula. White blood cell count was 15.6 with a left shift. Hemoglobin is 10.2 with an MCV of 102.5 and the platelets were within normal limits. Serum bicarb is increased at 33 and the BUN is 14 with a creatinine of 3.15. Chest x- ray showed small bilateral pleural effusions, left greater than right, with left lower lobe atelectasis and/or infiltrate. Digoxin level was toxic at 2.61 but, she was not on Dig at the [facility]. She had 2 doses of 250 mcg on 11/18/18. Influenza swab was negative. Lactic acid was 2.1. She was admitted to the hospital with a diagnosis of acute severe sepsis secondary to suspected healthcare associated pneumonia and started on vancomycin and Zosyn. All events the past 24 hours been reviewed. Afebrile since admission. Pressures have ranged from 84/71 at admission to 105/40 currently. Heart rate is now controlled. ECHO has been ordered for today Objective: PHYSICAL EXAM: GENERAL: alert, oriented X 3, Cooperative, NAD ORAL: moist mucosa, no mucosal lesions NECK: No JVD, supple, trachea midline LUNGS: CTA, symmetric chest expansion HEART: irreg in AF with rate 110-120, Normal S1 and S2, no rub, no gallop ABDOMEN: soft, NT, ND, BS present, no guarding with palpation EXTREMITIES: no edema, no cyanosis, no calf tenderness SKIN: No rashes, no breakdown NEUROLOGIC: no focal neurologic deficits PSYCH: appropriate, normal affect, pleasant - Physical Exam Vital Signs Temp Pulse Resp BP Pulse Ox 98.1 F 80 15 105/40 L 96 11/19/18 06:00 11/19/18 06:00 11/19/18 06:00 11/19/18 06:00 11/19/18 06:00 Oxygen Flow Rate (L/min) 1 Oxygen Delivery Method Nasal Cannula Weight: 152 lb 5.431 oz Body Mass Index (BMI) 29.7 Intake and Output for Last 24 Hours 11/17/18 11/18/18 11/19/18 23:59 23:59 23:59 Intake Total 615 / 615 404.7 / 404.7 Balance 615 / 615 404.7 / 404.7 Microbiology Past 72 Hours 11/18/18 15:35 Influenza Types A,B Direct FA (RAEGAN) - Final Mucosa - Nose Laboratory Tests Past 24 Hrs 11/18/18 11/18/18 11/18/18 15:30 15:30 15:30 WBC 15.6 H RBC 3.58 L Hgb 10.2 L Hct 36.7 L MCV 102.5 H MCH 28.5 MCHC 27.8 L RDW 19.8 H RDW Differential 72.9 H Plt Count 345 MPV 9.5 Immature Gran % (Auto) 0.600 Neut % (Auto) 82.0 H Lymph % (Auto) 8.2 L [place] % (Auto) 7.7 Eos % (Auto) 1.2 Baso % (Auto) 0.3 Absolute Neuts (auto) 12.8 H Absolute Lymphs (auto) 1.28 Total Counted Not Reportable Differential Comment SCANNED PT INR Sodium 139 Potassium 4.0 Chloride 95 L Carbon Dioxide 33.0 H Anion Gap 11 BUN 14 Creatinine 3.15 H Estim Creat Clear Calc 13.01 Est GFR (MDRD) Af Amer 25 L Est GFR (MDRD) Non-Af 20 L BUN/Creatinine Ratio 4.4 L Glucose 140 H Lactic Acid 2.1 H Calcium 8.6 Troponin I 0.050 H B-Natriuretic Peptide Digoxin MRSA (PCR) 11/18/18 11/18/18 11/18/18 15:30 15:30 19:15 WBC RBC Hgb Hct MCV MCH MCHC RDW RDW Differential Plt Count MPV Immature Gran % (Auto) Neut % (Auto) Lymph % (Auto) [place] % (Auto) Eos % (Auto) Baso % (Auto) Absolute Neuts (auto) Absolute Lymphs (auto) Total Counted Differential Comment PT 30.8 H INR 2.9 Sodium Potassium Chloride Carbon Dioxide Anion Gap BUN Creatinine Estim Creat Clear Calc Est GFR (MDRD) Af Amer Est GFR (MDRD) Non-Af BUN/Creatinine Ratio Glucose Lactic Acid Calcium Troponin I 0.071 H B-Natriuretic Peptide 702.7 H Digoxin MRSA (PCR) 11/18/18 11/18/18 11/18/18 20:05 20:50 22:20 WBC RBC Hgb Hct MCV MCH MCHC RDW RDW Differential Plt Count MPV Immature Gran % (Auto) Neut % (Auto) Lymph % (Auto) [place] % (Auto) Eos % (Auto) Baso % (Auto) Absolute Neuts (auto) Absolute Lymphs (auto) Total Counted Differential Comment PT INR Sodium Potassium Chloride Carbon Dioxide Anion Gap BUN Creatinine Estim Creat Clear Calc Est GFR (MDRD) Af Amer Est GFR (MDRD) Non-Af BUN/Creatinine Ratio Glucose Lactic Acid 1.6 Calcium Troponin I 0.083 H B-Natriuretic Peptide Digoxin MRSA (PCR) Negative 11/19/18 11/19/18 01:00 03:50 WBC RBC Hgb Hct MCV MCH MCHC RDW RDW Differential Plt Count MPV Immature Gran % (Auto) Neut % (Auto) Lymph % (Auto) [place] % (Auto) Eos % (Auto) Baso % (Auto) Absolute Neuts (auto) Absolute Lymphs (auto) Total Counted Differential Comment PT INR Sodium Potassium Chloride Carbon Dioxide Anion Gap BUN Creatinine Estim Creat Clear Calc Est GFR (MDRD) Af Amer Est GFR (MDRD) Non-Af BUN/Creatinine Ratio Glucose Lactic Acid Calcium Troponin I 0.068 H B-Natriuretic Peptide Digoxin 2.61 H* MRSA (PCR) POC Glucose 11/19/18 11/18/18 06:49 21:39 POC Glucose 88 192 H Medical Necessity - Tobacco Use Smoking Status: Never smoker Tobacco Use: Non-smoker Assessment/Plan All Active Problems Atrial fibrillation with RVR (Acute) Pneumonia (Acute) Severe sepsis (Acute) Impressions 1. AF with RVR 2. acute severe sepsis secondary to HCAP 3. End-stage renal disease on hemodialysis 4. Diabetes mellitus type 2 5. Hyperlipidemia Plan was discussed with Mckay Elizondo and orders have bee written. Appreciate cardiology input Code Visit Inpatient E&M: 60864 Subs Hosp L3
--- NOTE | 2018-11-19 08:42 | PCM.CONS.C ---
Reason for Consult Date of Consultation: 11/19/18 Reason for Consultation: Irregular heart rate History of Present Illness: The patient is a 83 year old F with of paroxysmal afib, ESRD, CHF (unclear subtype), COPD, chronic hypoxic respiratory failure, chronic anemia, DMt2, who presents to the ER from [facility] with c/o chills. She was recently admitted to [facility] and in the ICU for 11 days being treated for pneumonia and CHF, and was DCd to [facility]. This morning she woke up with chills and went to dialysis, told she did not look right and was sent to the ER. She was found to have Afib with RVR. She also appeared to have septic with leukocytosis, tachycardia, lactic acidosis, + tachypnea. She has an ongoing productive cough which started this past week, and is mildly SOB - although she is not hypoxic with her home dose of O2 - 2 lpm via NC. She was given digoxin in the ER and is starting amiodarone, still tachy into the 110-120 range during interview. She has no chest pain or palpitations. She takes Toprol despite her listed metoprolol allergy. Her construction millwright is in [place]. She denies dysuria, but her family states that she gets frequent UTI's despite not feeling dysuria. She does do dialysis here in [place] however her boat diesel motor mechanic does not come here. She reiterated her desire to be DNR CCA with no CPR/Intubation, confirmed with family present.Cardiology was called for further evaluation. [] Past Medical History Allergies/Adverse Reactions: Allergies amlodipine [From Norvasc] Allergy (Verified 11/18/18 15:12) Other atorvastatin [From Lipitor] Allergy (Verified 11/18/18 15:12) Other ciprofloxacin [From Cipro] Allergy (Verified 11/18/18 15:12) Other fentanyl Allergy (Verified 11/18/18 15:12) Other metoprolol [From Lopressor] Allergy (Verified 11/18/18 15:12) Other morphine Allergy (Verified 11/18/18 15:12) Other prochlorperazine [From Compazine] Allergy (Verified 11/18/18 15:12) Other rofecoxib [From Vioxx] Allergy (Verified 11/18/18 15:12) Other rosuvastatin [From Crestor] Allergy (Verified 11/18/18 15:12) Other Home Medications: Ambulatory Orders Medication Instructions Recorded Acetaminophen [Tylenol] 650 mg PO Q4H PRN PRN 11/18/18 Ascorbic Acid [Vitamin C] 500 mg PO DAILY@0800 11/18/18 Aspirin [Aspirin, Baby] 81 mg PO DAILY@0800 11/18/18 Atorvastatin Calcium [Lipitor] 40 mg PO QHS 11/18/18 Cholecalciferol (VIT D3) [Vitamin 1,000 unit PO DAILY 11/18/18 D] Docusate Sodium [Colace] 100 mg PO BID 11/18/18 Ferrous Sulfate [Iron] 325 mg PO DAILY 11/18/18 Gabapentin [Neurontin] 100 mg PO DAILY 11/18/18 Insulin Detemir [Levemir Flextouch] 8 unit SQ DAILY 11/18/18 Melatonin/Pyridoxine HCl (B6) 1 each PO QHS 11/18/18 [Melatonin 1 mg Tablet] Metoprolol Succinate [Toprol Xl] 50 mg PO BID 11/18/18 Multivitamin with Minerals 1 tab PO DAILY 11/18/18 [Multiple Vitamin] Omeprazole 20 mg PO DAILY 11/18/18 Rivaroxaban [Xarelto] 15 mg PO DAILY 11/18/18 Past Medical History (Chronic Problems): Chronic Problems Diabetes (Chronic) ESRD (end stage renal disease) (Chronic) COPD (chronic obstructive pulmonary disease) (Chronic) Iron deficiency anemia (Chronic) HLD (hyperlipidemia) (Chronic) CHF (congestive heart failure) (Chronic) Chronic respiratory failure with hypoxia (Chronic) Surgical History: hysterectomy, - - Left knee, Right leg, C sections Psychiatric History: No pertinent psych hx MASTER SHIP History: No pertinent MASTER SHIP history - *Family History Maternal History Items: Stroke Paternal History Items: Cancer - leukemia Lives: Alf Smoking Status: Never smoker Tobacco Use: Non-smoker Alcohol: None Drugs: None Review of Systems - Review of Systems General: Reports: Fever, Fatigue. Denies: Night Sweats Cardiovascular: Denies: Chest Discomfort, Shortness of Breath, Orthopnea, PND, Peripheral Edema, Palpitations, Lightheadedness, Dizziness, Near Syncope, Syncope Respiratory: Denies: Cough, Sputum Production, Hemoptysis Gastrointestinal: Denies: Hematemesis, Hematochezia, Melena Genitourinary: Denies: Dysuria, Hematuria Skin: Denies: Rash Objective: Vital Signs Temp Pulse Resp BP Pulse Ox 98.1 F 78 18 105/40 L 98 11/19/18 06:00 11/19/18 07:12 11/19/18 07:12 11/19/18 06:00 11/19/18 07:12 Oxygen Flow Rate (L/min) 2 Oxygen Delivery Method Nasal Cannula Weight: 152 lb 5.431 oz Body Mass Index (BMI) 29.7 Intake and Output for Last 24 Hours 11/17/18 11/18/18 11/19/18 23:59 23:59 23:59 Intake Total 615 / 615 404.7 / 404.7 Balance 615 / 615 404.7 / 404.7 11/18/18 15:30: WBC 15.6 H, RBC 3.58 L, Hgb 10.2 L, Hct 36.7 L, MCV 102.5 H, MCH 28.5, MCHC 27.8 L, RDW 19.8 H, RDW Differential 72.9 H, Plt Count 345, MPV 9.5, Immature Gran % (Auto) 0.600, Neut % (Auto) 82.0 H, Lymph % (Auto) 8.2 L, [place] % (Auto) 7.7, Eos % (Auto) 1.2, Baso % (Auto) 0.3, Absolute Neuts (auto) 12.8 H, Total Counted Not Reportable 11/18/18 15:30: Sodium 139, Potassium 4.0, Chloride 95 L, Carbon Dioxide 33.0 H, Anion Gap 11, BUN 14, Creatinine 3.15 H, Est GFR (MDRD) Af Amer 25 L, Est GFR (MDRD) Non-Af 20 L, BUN/Creatinine Ratio 4.4 L, Glucose 140 H, Calcium 8.6, Troponin I 0.050 H 11/18/18 15:30: Lactic Acid 2.1 H 11/18/18 15:30: PT 30.8 H, INR 2.9 11/18/18 15:30: B-Natriuretic Peptide 702.7 H 11/18/18 19:15: Troponin I 0.071 H 11/18/18 20:05: Lactic Acid 1.6 11/18/18 22:20: Troponin I 0.083 H 11/19/18 01:00: Troponin I 0.068 H 11/19/18 03:50: Digoxin 2.61 H* Rhythm: EKG: ECHO: Stress Test: Cardiac Cath: PCI: CT Surgery: Holter monitor: EPS: PPM: CXR: Chest CT Scan: Assessment/Plan 1. Atrial fibrillation with a rapid ventricular response rate. Patient presents with atrial for relation with rapid ventricular response rate. At this time I would recommend that her rate be controlled with amiodarone. I would not give any anticoagulation at this particular time. An echocardiogram will be performed to assess her left ventricular function. Depending on the findings further recommendations will be made. Thank you for allowing me to participate in the care of your patient. Please don't hesitate to call if any issues arise
--- NOTE | 2018-11-19 08:46 | CON.PCM_ITS ---
Reason for Consult Date of Consultation: 11/19/18 Reason for Consultation: Irregular heart rate History of Present Illness: The patient is a 83 year old F with of paroxysmal afib, ESRD, CHF (unclear subtype), COPD, chronic hypoxic respiratory failure, chronic anemia, DMt2, who presents to the ER from [facility] with c/o chills. She was recently admitted to [facility] and in the ICU for 11 days being treated for pneumonia and CHF, and was DCd to [facility]. This morning she woke up with chills and went to dialysis, told she did not look right and was sent to the ER. She was found to have Afib with RVR. She also appeared to have septic with leukocytosis, tachycardia, lactic acidosis, + tachypnea. She has an ongoing productive cough which started this past week, and is mildly SOB - although she is not hypoxic with her home dose of O2 - 2 lpm via NC. She was given digoxin in the ER and is starting amiodarone, still tachy into the 110-120 range during interview. She has no chest pain or palpitations. She takes Toprol despite her listed metoprolol allergy. 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 She denies dysuria, but her family states that she gets frequent UTI's despite not feeling dysuria. She does do dialysis here in [place] however her manifest clerk does not come here. She reiterated her desire to be DNR CCA with no CPR/Intubation, confirmed with family present.Cardiology was called for further evaluation. [] Past Medical History Allergies/Adverse Reactions: Allergies amlodipine [From Norvasc] Allergy (Verified 11/18/18 15:12) Other atorvastatin [From Lipitor] Allergy (Verified 11/18/18 15:12) Other ciprofloxacin [From Cipro] Allergy (Verified 11/18/18 15:12) Other fentanyl Allergy (Verified 11/18/18 15:12) Other metoprolol [From Lopressor] Allergy (Verified 11/18/18 15:12) Other morphine Allergy (Verified 11/18/18 15:12) Other prochlorperazine [From Compazine] Allergy (Verified 11/18/18 15:12) Other rofecoxib [From Vioxx] Allergy (Verified 11/18/18 15:12) Other rosuvastatin [From Crestor] Allergy (Verified 11/18/18 15:12) Other Home Medications: Ambulatory Orders Medication Instructions Recorded Acetaminophen [Tylenol] 650 mg PO Q4H PRN PRN 11/18/18 Ascorbic Acid [Vitamin C] 500 mg PO DAILY@0800 11/18/18 Aspirin [Aspirin, Baby] 81 mg PO DAILY@0800 11/18/18 Atorvastatin Calcium [Lipitor] 40 mg PO QHS 11/18/18 Cholecalciferol (VIT D3) [Vitamin 1,000 unit PO DAILY 11/18/18 D] Docusate Sodium [Colace] 100 mg PO BID 11/18/18 Ferrous Sulfate [Iron] 325 mg PO DAILY 11/18/18 Gabapentin [Neurontin] 100 mg PO DAILY 11/18/18 Insulin Detemir [Levemir Flextouch] 8 unit SQ DAILY 11/18/18 Melatonin/Pyridoxine HCl (B6) 1 each PO QHS 11/18/18 [Melatonin 1 mg Tablet] Metoprolol Succinate [Toprol Xl] 50 mg PO BID 11/18/18 Multivitamin with Minerals 1 tab PO DAILY 11/18/18 [Multiple Vitamin] Omeprazole 20 mg PO DAILY 11/18/18 Rivaroxaban [Xarelto] 15 mg PO DAILY 11/18/18 Past Medical History (Chronic Problems): Chronic Problems Diabetes (Chronic) ESRD (end stage renal disease) (Chronic) COPD (chronic obstructive pulmonary disease) (Chronic) Iron deficiency anemia (Chronic) HLD (hyperlipidemia) (Chronic) CHF (congestive heart failure) (Chronic) Chronic respiratory failure with hypoxia (Chronic) Surgical History: hysterectomy, - - Left knee, Right leg, C sections Psychiatric History: No pertinent psych hx SINGER BACK TENDER History: No pertinent SINGER BACK TENDER history - *Family History Maternal History Items: Stroke Paternal History Items: Cancer - leukemia Lives: [place] Smoking Status: Never smoker Tobacco Use: Non-smoker Alcohol: None Drugs: None Review of Systems - Review of Systems General: Reports: Fever, Fatigue. Denies: Night Sweats Cardiovascular: Denies: Chest Discomfort, Shortness of Breath, Orthopnea, PND, Peripheral Edema, Palpitations, Lightheadedness, Dizziness, Near Syncope, Syncope Respiratory: Denies: Cough, Sputum Production, Hemoptysis Gastrointestinal: Denies: Hematemesis, Hematochezia, Melena Genitourinary: Denies: Dysuria, Hematuria Skin: Denies: Rash Objective: Vital Signs Temp Pulse Resp BP Pulse Ox 98.1 F 78 18 105/40 L 98 11/19/18 06:00 11/19/18 07:12 11/19/18 07:12 11/19/18 06:00 11/19/18 07:12 Oxygen Flow Rate (L/min) 2 Oxygen Delivery Method Nasal Cannula Weight: 152 lb 5.431 oz Body Mass Index (BMI) 29.7 Intake and Output for Last 24 Hours 11/17/18 11/18/18 11/19/18 23:59 23:59 23:59 Intake Total 615 / 615 404.7 / 404.7 Balance 615 / 615 404.7 / 404.7 11/18/18 15:30: WBC 15.6 H, RBC 3.58 L, Hgb 10.2 L, Hct 36.7 L, MCV 102.5 H, MCH 28.5, MCHC 27.8 L, RDW 19.8 H, RDW Differential 72.9 H, Plt Count 345, MPV 9.5, Immature Gran % (Auto) 0.600, Neut % (Auto) 82.0 H, Lymph % (Auto) 8.2 L, [place] % (Auto) 7.7, Eos % (Auto) 1.2, Baso % (Auto) 0.3, Absolute Neuts (auto) 12.8 H, Total Counted Not Reportable 11/18/18 15:30: Sodium 139, Potassium 4.0, Chloride 95 L, Carbon Dioxide 33.0 H, Anion Gap 11, BUN 14, Creatinine 3.15 H, Est GFR (MDRD) Af Amer 25 L, Est GFR (MDRD) Non-Af 20 L, BUN/Creatinine Ratio 4.4 L, Glucose 140 H, Calcium 8.6, Troponin I 0.050 H 11/18/18 15:30: Lactic Acid 2.1 H 11/18/18 15:30: PT 30.8 H, INR 2.9 11/18/18 15:30: B-Natriuretic Peptide 702.7 H 11/18/18 19:15: Troponin I 0.071 H 11/18/18 20:05: Lactic Acid 1.6 11/18/18 22:20: Troponin I 0.083 H 11/19/18 01:00: Troponin I 0.068 H 11/19/18 03:50: Digoxin 2.61 H* Rhythm: EKG: ECHO: Stress Test: Cardiac Cath: PCI: CT Surgery: Holter monitor: EPS: PPM: CXR: Chest CT Scan: Assessment/Plan 1. Atrial fibrillation with a rapid ventricular response rate. Patient presents with atrial for relation with rapid ventricular response rate. At this time I would recommend that her rate be controlled with amiodarone. I would not give any anticoagulation at this particular time. * An echocardiogram will be performed to assess her left ventricular function. * Depending on the findings further recommendations will be made. * * Thank you for allowing me to participate in the care of your patient. Please don't hesitate to call if any issues arise
[2018-11-19 09:01] LABS: Absolute Neutrophil Count 8.9 X10^3/uL (2.0-7.7); Basophil# 0.03 X10^3/uL; Basophil% 0.3 % (0-1); Eosinophil# 0.13 X10^3/uL; Eosinophils% 1.2 % (0-5); Hematocrit 35.6 % (37-47); Hemoglobin 9.9 g/dl (12.0-15.0); Lymphocyte % 10.9 % (19-41); Mean Corp Hgb Conc 27.8 g/gl (32-36); Mean Corpuscular Hgb 28.8 pg (27.0-32.0); Mean Corpuscular Volume 103.5 fL (81-99); Mean Platelet Vol. 9.4 fl (6.2-12.0); Monocyte# 0.71 X10^3/uL; Monocyte% 6.5 % (0-10); Neutrophil # 8.86 X10^3/uL (2.7-7.7); Neutrophil % 80.6 % (47-70); Platelet Count 292 K/mm3 (150-450); RBC Distribution Width CV 19.7 % (11.6-14.6); RBC Distribution Width SD 71.3 fl (35.1-43.9); Red Blood Count 3.44 M/mm3 (4.2-5.4)
[2018-11-19 09:04] LABS: Differential Indicated SCAN CRITERIA MET; POSITIVE COUNT NO; POSITIVE DIFFERENTIAL NO; POSITIVE MORPHOLOGY YES
[2018-11-19 09:10] LABS: Anion Gap 11 (5-15); BUN 21 mg/dL (7-18); BUN/Creat Ratio 5.5 RATIO (10-20); Calcium,Total 8.3 mg/dL (8.5-10.1); Chloride 97 mmol/L (98-107); Creatinine, Serum 3.79 mg/dL (0.55-1.02); EST Glomerular Filtration Rate 12 mL/min (>60); Est Glom Filt Rate - Afr Amer 15 mL/min (>60); Estimated Creatinine Clearance 8.36 ml/min; Glucose 119 mg/dL (74-106); Potassium 4.2 mmol/L (3.5-5.1); Sodium Level 140 mmol/L (136-145)
[2018-11-19 09:27] LABS: Anisocytosis 2+; Hypochromasia 1+
[2018-11-19] MEDS: guaiFENesin 1,200 MG Tablet 1200 MG PO ×2 (09:52→21:43)
[2018-11-19] MEDS: Aspirin 81 MG TAB.CHEW PO (09:52)
[2018-11-19] MEDS: Ferrous Sulfate 325 MG Tablet PO (09:52)
[2018-11-19] MEDS: Nystatin Powder 15gm Bottle 1 APPLIC TOPICAL ×2 (09:53→21:44)
[2018-11-19] MEDS: Pantoprazole Sodium 20 MG Tablet PO (09:53)
[2018-11-19] MEDS: Gabapentin 100 MG Capsule PO (09:53)
[2018-11-19] MEDS: Rivaroxaban 15 MG Tablet PO (09:54)
[2018-11-19 10:51] LABS: Mucous, Urine 0 SEEN /hpf (<or=2+)
[2018-11-19 10:57] LABS: Color, Urine Brown (Yellow); Glucose, Dipstick Normal (Normal); Ketone-Dipstick 5 mg/dl (Negative); Leukocyte Esterase-Dipstick 500 /ul (Negative); Nitrite-Dipstick Negative (Negative); Occult Blood-Urine 250 /ul (Negative); Protein-Dipstick 500 mg/dl (Negative); Urine Bilirubin Dipstick Negative (Negative); Urine Clarity Turbid (Clear); Urine Urobilinogen Normal (Normal); Urine pH 6.5 (5.0 - 8.0)
[2018-11-19 11:15] LABS: Bacteria 2+ /hpf (None Seen); Red Blood Cells-Urine 25-50 SEEN /hpf (0-5); Squamous Epithelial Cells - UA 0-5 SEEN /hpf (5-10); White Blood Cells >100 SEEN /hpf (0-5)
--- NOTE | 2018-11-19 11:44 | CASEMGMT ---
Patient is from [facility]. FIONA called Ketty at [facility] and patient is currently there on her Medicaid. Therefore she does not need a pre-cert to return. FIONA faxed updates to [facility]. Kimberly CLARK MSW
[2018-11-19 12:35] LABS: Bedside Glucose 116 mg/dL (70-110)
--- NOTE | 2018-11-19 12:55 | PN_ITS ---
Patient Problems: Active and Suspected Problems Atrial fibrillation with RVR (Acute) Pneumonia (Acute) Severe sepsis (Acute) Subjective: Productive cough with luna sputum ongoing. No fever, still chills overnight. Mild SOB however stable on home O2 dose. No CP/palp today. Does have urinary urgency. Straight cath'd for urine. No abdominal pain. Dialysis M/W/F Dr. Solomon. Did complete dialysis yesterday. - Physical Exam General: Alert, Oriented x3, Cooperative HEENT: Atraumatic, PERRLA, EOMI, Normocephalic Neck: Supple, No JVD, Negative Carotid Bruits Lungs: Clear to auscultation, Normal air movement Cardiovascular: Regular rate, No murmurs, Irregular Rate Abdomen: Bowel Sounds Present, Soft, Non Tender Extremities: No edema, Capillary Refill Less than 3 Seconds Skin: No rashes, No breakdown Musculoskeletal: No Tenderness to Palpation of Joints or Extremities Neurological: Cranial nerves II-XII grossly intact Psych/Mental Status: Normal Affect, Appropriate, Alert and oriented to time, place, person, mood and affect Vital Signs Temp Pulse Resp BP Pulse Ox 98.7 F 88 15 94/34 L 100 11/19/18 10:00 11/19/18 10:00 11/19/18 10:00 11/19/18 10:00 11/19/18 10:00 Oxygen Flow Rate (L/min) 2 Oxygen Delivery Method Room Air Weight: 152 lb 5.431 oz Body Mass Index (BMI) 29.7 Intake and Output for Last 24 Hours 11/17/18 11/18/18 11/19/18 23:59 23:59 23:59 Intake Total 615 / 615 404.7 / 404.7 Balance 615 / 615 404.7 / 404.7 Microbiology Past 72 Hours 11/19/18 10:40 Legionella Antigen - Final Urine Catheter - Catheter 11/19/18 10:40 Streptococcus pneumoniae Antigen (M - Final Urine Catheter - Catheter 11/18/18 20:50 Gram Stain - Final Sputum, Expectorated/Coughed 11/18/18 15:35 Respiratory Panel (PCR) - Final Mucosa - Nasopharyngeal 11/18/18 15:35 Influenza Types A,B Direct FA (RAEGAN) - Final Mucosa - Nose Laboratory Tests Past 24 Hrs 03/11/19 03/11/19 03/11/19 15:30 15:30 15:30 WBC 15.6 H RBC 3.58 L Hgb 10.2 L Hct 36.7 L MCV 102.5 H MCH 28.5 MCHC 27.8 L RDW 19.8 H RDW Differential 72.9 H Plt Count 345 MPV 9.5 Immature Gran % (Auto) 0.600 Neut % (Auto) 82.0 H Lymph % (Auto) 8.2 L [place] % (Auto) 7.7 Eos % (Auto) 1.2 Baso % (Auto) 0.3 Absolute Neuts (auto) 12.8 H Absolute Lymphs (auto) 1.28 Total Counted Not Reportable Differential Comment SCANNED Hypochromasia Anisocytosis PT INR Sodium 139 Potassium 4.0 Chloride 95 L Carbon Dioxide 33.0 H Anion Gap 11 BUN 14 Creatinine 3.15 H Estim Creat Clear Calc 13.01 Est GFR (MDRD) Af Amer 25 L Est GFR (MDRD) Non-Af 20 L BUN/Creatinine Ratio 4.4 L Glucose 140 H Lactic Acid 2.1 H Calcium 8.6 Troponin I 0.050 H B-Natriuretic Peptide Urine Color Urine Clarity Urine pH Ur Specific [place] Urine Protein Urine Glucose (UA) Urine Ketones Urine Occult Blood Urine Nitrite Urine Bilirubin Urine Urobilinogen Ur Leukocyte Esterase Urine RBC Urine WBC Ur Squamous Epith Cells Urine Bacteria Urine Mucus Digoxin MRSA (PCR) 11/18/18 11/18/18 11/18/18 15:30 15:30 19:15 WBC RBC Hgb Hct MCV MCH MCHC RDW RDW Differential Plt Count MPV Immature Gran % (Auto) Neut % (Auto) Lymph % (Auto) [place] % (Auto) Eos % (Auto) Baso % (Auto) Absolute Neuts (auto) Absolute Lymphs (auto) Total Counted Differential Comment Hypochromasia Anisocytosis PT 30.8 H INR 2.9 Sodium Potassium Chloride Carbon Dioxide Anion Gap BUN Creatinine Estim Creat Clear Calc Est GFR (MDRD) Af Amer Est GFR (MDRD) Non-Af BUN/Creatinine Ratio Glucose Lactic Acid Calcium Troponin I 0.071 H B-Natriuretic Peptide 702.7 H Urine Color Urine Clarity Urine pH Ur Specific [place] Urine Protein Urine Glucose (UA) Urine Ketones Urine Occult Blood Urine Nitrite Urine Bilirubin Urine Urobilinogen Ur Leukocyte Esterase Urine RBC Urine WBC Ur Squamous Epith Cells Urine Bacteria Urine Mucus Digoxin MRSA (PCR) 11/18/18 11/18/18 11/18/18 20:05 20:50 22:20 WBC RBC Hgb Hct MCV MCH MCHC RDW RDW Differential Plt Count MPV Immature Gran % (Auto) Neut % (Auto) Lymph % (Auto) [place] % (Auto) Eos % (Auto) Baso % (Auto) Absolute Neuts (auto) Absolute Lymphs (auto) Total Counted Differential Comment Hypochromasia Anisocytosis PT INR Sodium Potassium Chloride Carbon Dioxide Anion Gap BUN Creatinine Estim Creat Clear Calc Est GFR (MDRD) Af Amer Est GFR (MDRD) Non-Af BUN/Creatinine Ratio Glucose Lactic Acid 1.6 Calcium Troponin I 0.083 H B-Natriuretic Peptide Urine Color Urine Clarity Urine pH Ur Specific [place] Urine Protein Urine Glucose (UA) Urine Ketones Urine Occult Blood Urine Nitrite Urine Bilirubin Urine Urobilinogen Ur Leukocyte Esterase Urine RBC Urine WBC Ur Squamous Epith Cells Urine Bacteria Urine Mucus Digoxin MRSA (PCR) Negative 11/19/18 11/19/18 11/19/18 01:00 03:50 08:45 WBC 11.0 RBC 3.44 L Hgb 9.9 L Hct 35.6 L MCV 103.5 H MCH 28.8 MCHC 27.8 L RDW 19.7 H RDW Differential 71.3 H Plt Count 292 MPV 9.4 Immature Gran % (Auto) 0.500 Neut % (Auto) 80.6 H Lymph % (Auto) 10.9 L [place] % (Auto) 6.5 Eos % (Auto) 1.2 Baso % (Auto) 0.3 Absolute Neuts (auto) 8.9 H Absolute Lymphs (auto) 1.20 Total Counted Pending Differential Comment Hypochromasia 1+ Anisocytosis 2+ PT INR Sodium Potassium Chloride Carbon Dioxide Anion Gap BUN Creatinine Estim Creat Clear Calc Est GFR (MDRD) Af Amer Est GFR (MDRD) Non-Af BUN/Creatinine Ratio Glucose Lactic Acid Calcium Troponin I 0.068 H B-Natriuretic Peptide Urine Color Urine Clarity Urine pH Ur Specific [place] Urine Protein Urine Glucose (UA) Urine Ketones Urine Occult Blood Urine Nitrite Urine Bilirubin Urine Urobilinogen Ur Leukocyte Esterase Urine RBC Urine WBC Ur Squamous Epith Cells Urine Bacteria Urine Mucus Digoxin 2.61 H* MRSA (PCR) 11/19/18 11/19/18 08:45 10:40 WBC RBC Hgb Hct MCV MCH MCHC RDW RDW Differential Plt Count MPV Immature Gran % (Auto) Neut % (Auto) Lymph % (Auto) [place] % (Auto) Eos % (Auto) Baso % (Auto) Absolute Neuts (auto) Absolute Lymphs (auto) Total Counted Differential Comment Hypochromasia Anisocytosis PT INR Sodium 140 Potassium 4.2 Chloride 97 L Carbon Dioxide 32.0 Anion Gap 11 BUN 21 H Creatinine 3.79 H Estim Creat Clear Calc 8.36 Est GFR (MDRD) Af Amer 15 L Est GFR (MDRD) Non-Af 12 L BUN/Creatinine Ratio 5.5 L Glucose 119 H Lactic Acid Calcium 8.3 L Troponin I B-Natriuretic Peptide Urine Color Brown Urine Clarity Turbid Urine pH 6.5 Ur Specific [place] 1.020 Urine Protein 500 H Urine Glucose (UA) Normal Urine Ketones 5 H Urine Occult Blood 250 H Urine Nitrite Negative Urine Bilirubin Negative Urine Urobilinogen Normal Ur Leukocyte Esterase 500 H Urine RBC 25-50 SEEN Urine WBC >100 SEEN Ur Squamous Epith Cells 0-5 SEEN Urine Bacteria 2+ Urine Mucus 0 SEEN Digoxin MRSA (PCR) POC Glucose 11/19/18 11/19/18 11/18/18 12:05 06:49 21:39 POC Glucose 116 H 88 192 H Medical Necessity - Tobacco Use Smoking Status: Never smoker Tobacco Use: Non-smoker Assessment/Plan All Active Problems Atrial fibrillation with RVR (Acute) Pneumonia (Acute) Severe sepsis (Acute) 1. Afib with RVR - likely 2/2 sepsis. Cardiology following. Given dig 2/2 low Bp. Now on amio. Already on Xarelto. -Repeat echocardiogram demonstrates EF of 55%, no regional wall abnormalities, normal LV size, mild concentric LVH, 1-2+ TVI, 1+ TVI, PAS P 45 mmHg -Records request submitted for recent stay at [facility] ICU -Troponin is indeterminate, will compare to records from [place]. - 2. Acute severe sepsis secondary to suspected healthcare associated pneumonia, possibly secondary to recurrent urinary tract infection (present on admission)- was recently admitted to [facility] and in the ICU for 11 days with pneumonia and congestive heart failure and discharged 2 weeks ago. She does have a productive cough that developed this past week. -MRSA screen negative - vanc stopped -continue zosyn -sputum with 3+ WBC, 2+ GPC, 1+ GPR -urine antigens negative -blood cx pending -respiratory panel negative -Urinalysis is positive with 500 leukocyte esterase, greater than 100 WBCs, 2+ bacteria, urine culture is pending, she does have urinary urgency. Patient and family report frequent UTIs. -Lactic acidosis resolved. 3. End-stage renal disease-consult nephrology for ongoing dialysis. Normal days MWF completed full course yesterday per pt. 4. Hx CHF unclear subtype - no increased LE edema, CXR shows CHF however no hypoxia at this time. Check BNP, obtain records including echo from recent stay at [facility]. 5. COPD with chronic hypoxic respiratory failure - this does not appear to be an acute exacerbation. Continue aerosols, incentive spirometer. Baseline O2 is 2lpm NC. 6. T2DM with obesity - continue levemir, add SSI, dietary eval 7. Debility - SNF resident - return at [place] 8. Iron def. anemia - continue po iron 9. HLD - on statin CODE STATUS: discussed with family + patient DNRCCA no CPR no intubation. DVT ppx: on xarelto DC planning: return to [facility] This patient was seen by Mckay Hogan PA-C under the supervision of Doctor Barnes
--- NOTE | 2018-11-19 13:20 | CHAPLAIN ---
Type of Pastoral Visit _x__ Initial Visit ___ Follow-up Visit ___ On-call Visit ___ General Patient Visit ___ Spiritual Assessment ___ Family Conference ___ Bereavement ___ Rapid Response ___ Code Blue ___ Other (describe below) Pastoral Care Referral From _x__ Patient ___ Family ___ Nurse ___ Physician ___ Stock Plan Administrator ___ Elevator Service Mechanic ___ Other (describe below) Sacrament/Intervention _x__ Active listening ___ Anointing ___ Hindu ___ Bereavement ___ Communion ___ Britt exploration ___ ___ Life review _x__ Prayer ___ Reconciliation ___ Sacrament of Sick _x__ Supportive presence ___ Wedding ___ Other (describe below) Pastoral Comments
--- NOTE | 2018-11-19 13:23 | PCM.CONS.R ---
Problem List (1) ESRD (end stage renal disease) Status: Chronic Consultation - Renal PCP/ Referring MD: Requesting physician: [] Primary care physician: No Primary Care Phys - History of Present Illness History of Present Illness: The patient is a 83 year old F past medical history of end-stage renal disease on Sunday hemodialysis at [facility], chronic respiratory failure from COPD on oxygen support, diabetes type 2. Patient presented to the hospital with A. fib with RVR following hemodialysis session. In the ED she was found to have leukocytosis with sepsis and elevated lactic acid. Chest x-ray shows left lower lobe pneumonia. Renal team was consulted for end-stage renal disease care. Patient had full session of hemodialysis yesterday. Hemodialysis access is right IJ tunneled catheter. She is currently in the ICU, on antibiotics Zosyn and vancomycin. Blood pressure is borderline low she is not on any pressor. Patient was admitted recently to [facility] for pneumonia and CHF. Review of system: 12 system review is negative today [] - Allergies Allergies: Allergies amlodipine [From Norvasc] Allergy (Verified 11/18/18 15:12) Other atorvastatin [From Lipitor] Allergy (Verified 11/18/18 15:12) Other ciprofloxacin [From Cipro] Allergy (Verified 11/18/18 15:12) Other fentanyl Allergy (Verified 11/18/18 15:12) Other metoprolol [From Lopressor] Allergy (Verified 11/18/18 15:12) Other morphine Allergy (Verified 11/18/18 15:12) Other prochlorperazine [From Compazine] Allergy (Verified 11/18/18 15:12) Other rofecoxib [From Vioxx] Allergy (Verified 11/18/18 15:12) Other rosuvastatin [From Crestor] Allergy (Verified 11/18/18 15:12) Other - Current Medications Current Medications: Current Medications Acetaminophen (Tylenol) 650 mg PO Q6H PRN PRN PRN Reason: PAIN Albuterol Sulfate (Ventolin Aerosols) 2.5 mg INHALATION Q4H PRN PRN PRN Reason: SOB &/OR WHEEZING Albuterol/Ipratropium (Duoneb) 3 ml INHALATION Q6HWA.RT SOLEDAD Last Admin: 11/19/18 13:21 Dose: 3 ml Aspirin (Aspirin, Baby) 81 mg PO DAILY@0800 [facility] Last Admin: 11/19/18 09:52 Dose: 81 mg Atorvastatin Calcium (Lipitor) 40 mg PO QHS [facility] Last Admin: 11/18/18 21:42 Dose: 40 mg Cholecalciferol (Vitamin D) 1,000 unit PO DAILY [facility] Last Admin: 11/19/18 09:54 Dose: 1,000 unit Docusate Sodium (Colace) 100 mg PO BID [facility] Last Admin: 11/19/18 09:52 Dose: Not Given Ferrous Sulfate (Ferrous Sulfate) 325 mg PO DAILY@0800 [facility] Last Admin: 11/19/18 09:52 Dose: 325 mg Gabapentin (Neurontin) 100 mg PO DAILY [facility] Last Admin: 11/19/18 09:53 Dose: 100 mg Guaifenesin (Mucinex) 1,200 mg PO BID [facility] Last Admin: 11/19/18 09:52 Dose: 1,200 mg Piperacillin Sod/Tazobactam (Sod 3.375 gm/ Sodium Chloride) 50 mls @ 12.5 mls/hr IV Q12 [facility] Last Admin: 11/19/18 10:03 Dose: 12.5 mls/hr Insulin Glargine (Lantus (Bkc)) 8 units SC DAILY [facility] Last Admin: 11/19/18 12:40 Dose: 8 u Insulin Human Lispro (Humalog Kwikpen (Bkc)) 0 unit SC ACHS [facility]; Protocol Last Admin: 11/19/18 12:41 Dose: Not Given Metoprolol Succinate (Toprol Xl (Beta Jo Ann)) 50 mg PO BID [facility] Last Admin: 11/19/18 09:54 Dose: Not Given Nystatin (Mycostatin Powder) 1 applic TOPICAL BID [facility]; Protocol Last Admin: 11/19/18 09:53 Dose: 1 applicatio Pantoprazole Sodium (Protonix) 20 mg PO DAILY [facility] Last Admin: 11/19/18 09:53 Dose: 20 mg Rivaroxaban (Xarelto) 15 mg PO DAILY [facility] Last Admin: 11/19/18 09:54 Dose: 15 mg Sodium Chloride () 5 - 15 ml IV UD PRN PRN Reason: SALINE FLUSH Last Admin: 11/19/18 04:29 Dose: 15 ml - Past Medical History Past Medical History (Chronic Problems): Chronic Problems Diabetes (Chronic) ESRD (end stage renal disease) (Chronic) COPD (chronic obstructive pulmonary disease) (Chronic) Iron deficiency anemia (Chronic) HLD (hyperlipidemia) (Chronic) CHF (congestive heart failure) (Chronic) Chronic respiratory failure with hypoxia (Chronic) - Past Surgical History Surgical History: hysterectomy, - - Left knee, Right leg, C sections - Social History Smoking Status: Never smoker Alcohol: None Drugs: None - Family History Maternal History Items: Stroke Paternal History Items: Cancer - leukemia Patient Problems: Active and Suspected Problems Atrial fibrillation with RVR (Acute) Pneumonia (Acute) Severe sepsis (Acute) - Physical Exam General: Alert, Oriented x3 HEENT: Atraumatic Oral: Moist Mucosa Neck: Supple, No JVD Lungs: Clear to auscultation, Normal air movement, No rhonchi, No wheeze Cardiovascular: Regular rate, Regular Rhythm, Normal S1, Normal S2 Abdomen: Bowel Sounds Present, Soft, Non Tender, Non-Distended Extremities: No clubbing, No cyanosis, No edema Skin: No rashes Musculoskeletal: No Tenderness to Palpation of Joints or Extremities Lymphatic: No Cervical, Supraclavicular, or Inguinal Adenopathy Neurological: Cranial nerves II-XII grossly intact, Neuro grossly intact Psych/Mental Status: Normal Affect Vital Signs Temp Pulse Resp BP Pulse Ox 98.7 F 88 15 94/34 L 100 11/19/18 10:00 11/19/18 10:00 11/19/18 10:00 11/19/18 10:00 11/19/18 10:00 Oxygen Flow Rate (L/min) 2 Oxygen Delivery Method Room Air Weight: 69.1 kg Body Mass Index (BMI) 29.7 Intake and Output for Last 24 Hours 11/17/18 11/18/18 11/19/18 23:59 23:59 23:59 Intake Total 615 / 615 404.7 / 404.7 Balance 615 / 615 404.7 / 404.7 Microbiology Past 72 Hours 11/19/18 10:40 Legionella Antigen - Final Urine Catheter - Catheter 11/19/18 10:40 Streptococcus pneumoniae Antigen (M - Final Urine Catheter - Catheter 11/18/18 20:50 Gram Stain - Final Sputum, Expectorated/Coughed 11/18/18 15:35 Respiratory Panel (PCR) - Final Mucosa - Nasopharyngeal 11/18/18 15:35 Influenza Types A,B Direct FA (RAEGAN) - Final Mucosa - Nose Laboratory Tests Past 24 Hrs 11/18/18 11/18/18 11/18/18 15:30 15:30 15:30 WBC 15.6 H RBC 3.58 L Hgb 10.2 L Hct 36.7 L MCV 102.5 H MCH 28.5 MCHC 27.8 L RDW 19.8 H RDW Differential 72.9 H Plt Count 345 MPV 9.5 Immature Gran % (Auto) 0.600 Neut % (Auto) 82.0 H Lymph % (Auto) 8.2 L [place] % (Auto) 7.7 Eos % (Auto) 1.2 Baso % (Auto) 0.3 Absolute Neuts (auto) 12.8 H Absolute Lymphs (auto) 1.28 Total Counted Not Reportable Differential Comment SCANNED Hypochromasia Anisocytosis PT INR Sodium 139 Potassium 4.0 Chloride 95 L Carbon Dioxide 33.0 H Anion Gap 11 BUN 14 Creatinine 3.15 H Estim Creat Clear Calc 13.01 Est GFR (MDRD) Af Amer 25 L Est GFR (MDRD) Non-Af 20 L BUN/Creatinine Ratio 4.4 L Glucose 140 H Lactic Acid 2.1 H Calcium 8.6 Troponin I 0.050 H B-Natriuretic Peptide Urine Color Urine Clarity Urine pH Ur Specific [place] Urine Protein Urine Glucose (UA) Urine Ketones Urine Occult Blood Urine Nitrite Urine Bilirubin Urine Urobilinogen Ur Leukocyte Esterase Urine RBC Urine WBC Ur Squamous Epith Cells Urine Bacteria Urine Mucus Digoxin MRSA (PCR) 11/18/18 11/18/18 11/18/18 15:30 15:30 19:15 WBC RBC Hgb Hct MCV MCH MCHC RDW RDW Differential Plt Count MPV Immature Gran % (Auto) Neut % (Auto) Lymph % (Auto) [place] % (Auto) Eos % (Auto) Baso % (Auto) Absolute Neuts (auto) Absolute Lymphs (auto) Total Counted Differential Comment Hypochromasia Anisocytosis PT 30.8 H INR 2.9 Sodium Potassium Chloride Carbon Dioxide Anion Gap BUN Creatinine Estim Creat Clear Calc Est GFR (MDRD) Af Amer Est GFR (MDRD) Non-Af BUN/Creatinine Ratio Glucose Lactic Acid Calcium Troponin I 0.071 H B-Natriuretic Peptide 702.7 H Urine Color Urine Clarity Urine pH Ur Specific [place] Urine Protein Urine Glucose (UA) Urine Ketones Urine Occult Blood Urine Nitrite Urine Bilirubin Urine Urobilinogen Ur Leukocyte Esterase Urine RBC Urine WBC Ur Squamous Epith Cells Urine Bacteria Urine Mucus Digoxin MRSA (PCR) 11/18/18 11/18/18 11/18/18 20:05 20:50 22:20 WBC RBC Hgb Hct MCV MCH MCHC RDW RDW Differential Plt Count MPV Immature Gran % (Auto) Neut % (Auto) Lymph % (Auto) [place] % (Auto) Eos % (Auto) Baso % (Auto) Absolute Neuts (auto) Absolute Lymphs (auto) Total Counted Differential Comment Hypochromasia Anisocytosis PT INR Sodium Potassium Chloride Carbon Dioxide Anion Gap BUN Creatinine Estim Creat Clear Calc Est GFR (MDRD) Af Amer Est GFR (MDRD) Non-Af BUN/Creatinine Ratio Glucose Lactic Acid 1.6 Calcium Troponin I 0.083 H B-Natriuretic Peptide Urine Color Urine Clarity Urine pH Ur Specific [place] Urine Protein Urine Glucose (UA) Urine Ketones Urine Occult Blood Urine Nitrite Urine Bilirubin Urine Urobilinogen Ur Leukocyte Esterase Urine RBC Urine WBC Ur Squamous Epith Cells Urine Bacteria Urine Mucus Digoxin MRSA (PCR) Negative 11/19/18 11/19/18 11/19/18 01:00 03:50 08:45 WBC 11.0 RBC 3.44 L Hgb 9.9 L Hct 35.6 L MCV 103.5 H MCH 28.8 MCHC 27.8 L RDW 19.7 H RDW Differential 71.3 H Plt Count 292 MPV 9.4 Immature Gran % (Auto) 0.500 Neut % (Auto) 80.6 H Lymph % (Auto) 10.9 L [place] % (Auto) 6.5 Eos % (Auto) 1.2 Baso % (Auto) 0.3 Absolute Neuts (auto) 8.9 H Absolute Lymphs (auto) 1.20 Total Counted Pending Differential Comment Hypochromasia 1+ Anisocytosis 2+ PT INR Sodium Potassium Chloride Carbon Dioxide Anion Gap BUN Creatinine Estim Creat Clear Calc Est GFR (MDRD) Af Amer Est GFR (MDRD) Non-Af BUN/Creatinine Ratio Glucose Lactic Acid Calcium Troponin I 0.068 H B-Natriuretic Peptide Urine Color Urine Clarity Urine pH Ur Specific [place] Urine Protein Urine Glucose (UA) Urine Ketones Urine Occult Blood Urine Nitrite Urine Bilirubin Urine Urobilinogen Ur Leukocyte Esterase Urine RBC Urine WBC Ur Squamous Epith Cells Urine Bacteria Urine Mucus Digoxin 2.61 H* MRSA (PCR) 11/19/18 11/19/18 08:45 10:40 WBC RBC Hgb Hct MCV MCH MCHC RDW RDW Differential Plt Count MPV Immature Gran % (Auto) Neut % (Auto) Lymph % (Auto) [place] % (Auto) Eos % (Auto) Baso % (Auto) Absolute Neuts (auto) Absolute Lymphs (auto) Total Counted Differential Comment Hypochromasia Anisocytosis PT INR Sodium 140 Potassium 4.2 Chloride 97 L Carbon Dioxide 32.0 Anion Gap 11 BUN 21 H Creatinine 3.79 H Estim Creat Clear Calc 8.36 Est GFR (MDRD) Af Amer 15 L Est GFR (MDRD) Non-Af 12 L BUN/Creatinine Ratio 5.5 L Glucose 119 H Lactic Acid Calcium 8.3 L Troponin I B-Natriuretic Peptide Urine Color Brown Urine Clarity Turbid Urine pH 6.5 Ur Specific [place] 1.020 Urine Protein 500 H Urine Glucose (UA) Normal Urine Ketones 5 H Urine Occult Blood 250 H Urine Nitrite Negative Urine Bilirubin Negative Urine Urobilinogen Normal Ur Leukocyte Esterase 500 H Urine RBC 25-50 SEEN Urine WBC >100 SEEN Ur Squamous Epith Cells 0-5 SEEN Urine Bacteria 2+ Urine Mucus 0 SEEN Digoxin MRSA (PCR) POC Glucose 11/19/18 11/19/18 11/18/18 12:05 06:49 21:39 POC Glucose 116 H 88 192 H Assessment/Plan All Active Problems Atrial fibrillation with RVR (Acute) Pneumonia (Acute) Severe sepsis (Acute) 1-end-stage renal disease on Sunday hemodialysis schedule. Last hemodialysis yesterday. Patient goes to [facility] . Dr. Adame is a primary work ticket distributor. No need for hemodialysis today. Will arrange for hemodialysis tomorrow as per the patient's chronic order. 2-anemia. Continue ELISA as per the chronic order. 3-BMD. Please check phosphorus tomorrow. Continue active vitamin D as per the chronic order. 4-sepsis due to pneumonia. On Zosyn and vancomycin as per the ICU team. 5-A. fib with RVR. Heart rate is better controlled. Cardiology is following Renal team will continue to follow. Please call with any question or concern. Julianna Steel MD
--- NOTE | 2018-11-19 13:29 | CON.PCM_ITS ---
Problem List (1) ESRD (end stage renal disease) Status: Chronic Consultation - Renal PCP/ Referring MD: Requesting physician: [] Primary care physician: No Primary Care Phys - History of Present Illness History of Present Illness: The patient is a 83 year old F past medical history of end-stage renal disease on Sunday hemodialysis at [facility], chronic respiratory failure from COPD on oxygen support, diabetes type 2. Patient presented to the hospital with A. fib with RVR following hemodialysis session. In the ED she was found to have leukocytosis with sepsis and elevated lactic acid. Chest x- ray shows left lower lobe pneumonia. Renal team was consulted for end-stage renal disease care. Patient had full session of hemodialysis yesterday. Hemodialysis access is right IJ tunneled catheter. She is currently in the ICU, on antibiotics Zosyn and vancomycin. Blood pressure is borderline low she is not on any pressor. Patient was admitted recently to [facility] for pneumonia and CHF. Review of system: 12 system review is negative today [] - Allergies Allergies: Allergies amlodipine [From Norvasc] Allergy (Verified 11/18/18 15:12) Other atorvastatin [From Lipitor] Allergy (Verified 11/18/18 15:12) Other ciprofloxacin [From Cipro] Allergy (Verified 11/18/18 15:12) Other fentanyl Allergy (Verified 11/18/18 15:12) Other metoprolol [From Lopressor] Allergy (Verified 11/18/18 15:12) Other morphine Allergy (Verified 11/18/18 15:12) Other prochlorperazine [From Compazine] Allergy (Verified 11/18/18 15:12) Other rofecoxib [From Vioxx] Allergy (Verified 11/18/18 15:12) Other rosuvastatin [From Crestor] Allergy (Verified 11/18/18 15:12) Other - Current Medications Current Medications: Current Medications Acetaminophen (Tylenol) 650 mg PO Q6H PRN PRN PRN Reason: PAIN Albuterol Sulfate (Ventolin Aerosols) 2.5 mg INHALATION Q4H PRN PRN PRN Reason: SOB &/OR WHEEZING Albuterol/Ipratropium (Duoneb) 3 ml INHALATION Q6HWA.RT SOLEDAD Last Admin: 11/19/18 13:21 Dose: 3 ml Aspirin (Aspirin, Baby) 81 mg PO DAILY@0800 [facility] Last Admin: 11/19/18 09:52 Dose: 81 mg Atorvastatin Calcium (Lipitor) 40 mg PO QHS [facility] Last Admin: 11/18/18 21:42 Dose: 40 mg Cholecalciferol (Vitamin D) 1,000 unit PO DAILY [facility] Last Admin: 11/19/18 09:54 Dose: 1,000 unit Docusate Sodium (Colace) 100 mg PO BID [facility] Last Admin: 11/19/18 09:52 Dose: Not Given Ferrous Sulfate (Ferrous Sulfate) 325 mg PO DAILY@0800 [facility] Last Admin: 11/19/18 09:52 Dose: 325 mg Gabapentin (Neurontin) 100 mg PO DAILY [facility] Last Admin: 11/19/18 09:53 Dose: 100 mg Guaifenesin (Mucinex) 1,200 mg PO BID [facility] Last Admin: 11/19/18 09:52 Dose: 1,200 mg Piperacillin Sod/Tazobactam (Sod 3.375 gm/ Sodium Chloride) 50 mls @ 12.5 mls/hr IV Q12 [facility] Last Admin: 11/19/18 10:03 Dose: 12.5 mls/hr Insulin Glargine (Lantus (Bkc)) 8 units SC DAILY [facility] Last Admin: 11/19/18 12:40 Dose: 8 u Insulin Human Lispro (Humalog Kwikpen (Bkc)) 0 unit SC ACHS [facility]; Protocol Last Admin: 11/19/18 12:41 Dose: Not Given Metoprolol Succinate (Toprol Xl (Beta Jo Ann)) 50 mg PO BID [facility] Last Admin: 11/19/18 09:54 Dose: Not Given Nystatin (Mycostatin Powder) 1 applic TOPICAL BID [facility]; Protocol Last Admin: 11/19/18 09:53 Dose: 1 applicatio Pantoprazole Sodium (Protonix) 20 mg PO DAILY [facility] Last Admin: 11/19/18 09:53 Dose: 20 mg Rivaroxaban (Xarelto) 15 mg PO DAILY [facility] Last Admin: 11/19/18 09:54 Dose: 15 mg Sodium Chloride () 5 - 15 ml IV UD PRN PRN Reason: SALINE FLUSH Last Admin: 11/19/18 04:29 Dose: 15 ml - Past Medical History Past Medical History (Chronic Problems): Chronic Problems Diabetes (Chronic) ESRD (end stage renal disease) (Chronic) COPD (chronic obstructive pulmonary disease) (Chronic) Iron deficiency anemia (Chronic) HLD (hyperlipidemia) (Chronic) CHF (congestive heart failure) (Chronic) Chronic respiratory failure with hypoxia (Chronic) - Past Surgical History Surgical History: hysterectomy, - - Left knee, Right leg, C sections - Social History Smoking Status: Never smoker Alcohol: None Drugs: None - Family History Maternal History Items: Stroke Paternal History Items: Cancer - leukemia Patient Problems: Active and Suspected Problems Atrial fibrillation with RVR (Acute) Pneumonia (Acute) Severe sepsis (Acute) - Physical Exam General: Alert, Oriented x3 HEENT: Atraumatic Oral: Moist Mucosa Neck: Supple, No JVD Lungs: Clear to auscultation, Normal air movement, No rhonchi, No wheeze Cardiovascular: Regular rate, Regular Rhythm, Normal S1, Normal S2 Abdomen: Bowel Sounds Present, Soft, Non Tender, Non-Distended Extremities: No clubbing, No cyanosis, No edema Skin: No rashes Musculoskeletal: No Tenderness to Palpation of Joints or Extremities Lymphatic: No Cervical, Supraclavicular, or Inguinal Adenopathy Neurological: Cranial nerves II-XII grossly intact, Neuro grossly intact Psych/Mental Status: Normal Affect Vital Signs Temp Pulse Resp BP Pulse Ox 98.7 F 88 15 94/34 L 100 11/19/18 10:00 11/19/18 10:00 11/19/18 10:00 11/19/18 10:00 11/19/18 10:00 Oxygen Flow Rate (L/min) 2 Oxygen Delivery Method Room Air Weight: 69.1 kg Body Mass Index (BMI) 29.7 Intake and Output for Last 24 Hours 11/17/18 11/18/18 11/19/18 23:59 23:59 23:59 Intake Total 615 / 615 404.7 / 404.7 Balance 615 / 615 404.7 / 404.7 Microbiology Past 72 Hours 11/19/18 10:40 Legionella Antigen - Final Urine Catheter - Catheter 11/19/18 10:40 Streptococcus pneumoniae Antigen (M - Final Urine Catheter - Catheter 11/18/18 20:50 Gram Stain - Final Sputum, Expectorated/Coughed 11/18/18 15:35 Respiratory Panel (PCR) - Final Mucosa - Nasopharyngeal 11/18/18 15:35 Influenza Types A,B Direct FA (RAEGAN) - Final Mucosa - Nose Laboratory Tests Past 24 Hrs 11/18/18 11/18/18 11/18/18 15:30 15:30 15:30 WBC 15.6 H RBC 3.58 L Hgb 10.2 L Hct 36.7 L MCV 102.5 H MCH 28.5 MCHC 27.8 L RDW 19.8 H RDW Differential 72.9 H Plt Count 345 MPV 9.5 Immature Gran % (Auto) 0.600 Neut % (Auto) 82.0 H Lymph % (Auto) 8.2 L [place] % (Auto) 7.7 Eos % (Auto) 1.2 Baso % (Auto) 0.3 Absolute Neuts (auto) 12.8 H Absolute Lymphs (auto) 1.28 Total Counted Not Reportable Differential Comment SCANNED Hypochromasia Anisocytosis PT INR Sodium 139 Potassium 4.0 Chloride 95 L Carbon Dioxide 33.0 H Anion Gap 11 BUN 14 Creatinine 3.15 H Estim Creat Clear Calc 13.01 Est GFR (MDRD) Af Amer 25 L Est GFR (MDRD) Non-Af 20 L BUN/Creatinine Ratio 4.4 L Glucose 140 H Lactic Acid 2.1 H Calcium 8.6 Troponin I 0.050 H B-Natriuretic Peptide Urine Color Urine Clarity Urine pH Ur Specific [place] Urine Protein Urine Glucose (UA) Urine Ketones Urine Occult Blood Urine Nitrite Urine Bilirubin Urine Urobilinogen Ur Leukocyte Esterase Urine RBC Urine WBC Ur Squamous Epith Cells Urine Bacteria Urine Mucus Digoxin MRSA (PCR) 11/18/18 11/18/18 11/18/18 15:30 15:30 19:15 WBC RBC Hgb Hct MCV MCH MCHC RDW RDW Differential Plt Count MPV Immature Gran % (Auto) Neut % (Auto) Lymph % (Auto) [place] % (Auto) Eos % (Auto) Baso % (Auto) Absolute Neuts (auto) Absolute Lymphs (auto) Total Counted Differential Comment Hypochromasia Anisocytosis PT 30.8 H INR 2.9 Sodium Potassium Chloride Carbon Dioxide Anion Gap BUN Creatinine Estim Creat Clear Calc Est GFR (MDRD) Af Amer Est GFR (MDRD) Non-Af BUN/Creatinine Ratio Glucose Lactic Acid Calcium Troponin I 0.071 H B-Natriuretic Peptide 702.7 H Urine Color Urine Clarity Urine pH Ur Specific [place] Urine Protein Urine Glucose (UA) Urine Ketones Urine Occult Blood Urine Nitrite Urine Bilirubin Urine Urobilinogen Ur Leukocyte Esterase Urine RBC Urine WBC Ur Squamous Epith Cells Urine Bacteria Urine Mucus Digoxin MRSA (PCR) 11/18/18 11/18/18 11/18/18 20:05 20:50 22:20 WBC RBC Hgb Hct MCV MCH MCHC RDW RDW Differential Plt Count MPV Immature Gran % (Auto) Neut % (Auto) Lymph % (Auto) [place] % (Auto) Eos % (Auto) Baso % (Auto) Absolute Neuts (auto) Absolute Lymphs (auto) Total Counted Differential Comment Hypochromasia Anisocytosis PT INR Sodium Potassium Chloride Carbon Dioxide Anion Gap BUN Creatinine Estim Creat Clear Calc Est GFR (MDRD) Af Amer Est GFR (MDRD) Non-Af BUN/Creatinine Ratio Glucose Lactic Acid 1.6 Calcium Troponin I 0.083 H B-Natriuretic Peptide Urine Color Urine Clarity Urine pH Ur Specific [place] Urine Protein Urine Glucose (UA) Urine Ketones Urine Occult Blood Urine Nitrite Urine Bilirubin Urine Urobilinogen Ur Leukocyte Esterase Urine RBC Urine WBC Ur Squamous Epith Cells Urine Bacteria Urine Mucus Digoxin MRSA (PCR) Negative 11/19/18 11/19/18 11/19/18 01:00 03:50 08:45 WBC 11.0 RBC 3.44 L Hgb 9.9 L Hct 35.6 L MCV 103.5 H MCH 28.8 MCHC 27.8 L RDW 19.7 H RDW Differential 71.3 H Plt Count 292 MPV 9.4 Immature Gran % (Auto) 0.500 Neut % (Auto) 80.6 H Lymph % (Auto) 10.9 L [place] % (Auto) 6.5 Eos % (Auto) 1.2 Baso % (Auto) 0.3 Absolute Neuts (auto) 8.9 H Absolute Lymphs (auto) 1.20 Total Counted Pending Differential Comment Hypochromasia 1+ Anisocytosis 2+ PT INR Sodium Potassium Chloride Carbon Dioxide Anion Gap BUN Creatinine Estim Creat Clear Calc Est GFR (MDRD) Af Amer Est GFR (MDRD) Non-Af BUN/Creatinine Ratio Glucose Lactic Acid Calcium Troponin I 0.068 H B-Natriuretic Peptide Urine Color Urine Clarity Urine pH Ur Specific [place] Urine Protein Urine Glucose (UA) Urine Ketones Urine Occult Blood Urine Nitrite Urine Bilirubin Urine Urobilinogen Ur Leukocyte Esterase Urine RBC Urine WBC Ur Squamous Epith Cells Urine Bacteria Urine Mucus Digoxin 2.61 H* MRSA (PCR) 11/19/18 11/19/18 08:45 10:40 WBC RBC Hgb Hct MCV MCH MCHC RDW RDW Differential Plt Count MPV Immature Gran % (Auto) Neut % (Auto) Lymph % (Auto) [place] % (Auto) Eos % (Auto) Baso % (Auto) Absolute Neuts (auto) Absolute Lymphs (auto) Total Counted Differential Comment Hypochromasia Anisocytosis PT INR Sodium 140 Potassium 4.2 Chloride 97 L Carbon Dioxide 32.0 Anion Gap 11 BUN 21 H Creatinine 3.79 H Estim Creat Clear Calc 8.36 Est GFR (MDRD) Af Amer 15 L Est GFR (MDRD) Non-Af 12 L BUN/Creatinine Ratio 5.5 L Glucose 119 H Lactic Acid Calcium 8.3 L Troponin I B-Natriuretic Peptide Urine Color Brown Urine Clarity Turbid Urine pH 6.5 Ur Specific [place] 1.020 Urine Protein 500 H Urine Glucose (UA) Normal Urine Ketones 5 H Urine Occult Blood 250 H Urine Nitrite Negative Urine Bilirubin Negative Urine Urobilinogen Normal Ur Leukocyte Esterase 500 H Urine RBC 25-50 SEEN Urine WBC >100 SEEN Ur Squamous Epith Cells 0-5 SEEN Urine Bacteria 2+ Urine Mucus 0 SEEN Digoxin MRSA (PCR) POC Glucose 11/19/18 11/19/18 11/18/18 12:05 06:49 21:39 POC Glucose 116 H 88 192 H Assessment/Plan All Active Problems Atrial fibrillation with RVR (Acute) Pneumonia (Acute) Severe sepsis (Acute) 1-end-stage renal disease on Sunday hemodialysis schedule. Last hemodialysis yesterday. Patient goes to [facility] [place] . 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 No need for hemodialysis today. Will arrange for hemodialysis tomorrow as per the patient's chronic order. 2-anemia. Continue ELISA as per the chronic order. 3-BMD. Please check phosphorus tomorrow. Continue active vitamin D as per the chronic order. 4-sepsis due to pneumonia. On Zosyn and vancomycin as per the ICU team. 5-A. fib with RVR. Heart rate is better controlled. Cardiology is following Renal team will continue to follow. Please call with any question or concern. Julianna Steel MD
--- NOTE | 2018-11-19 14:44 | CASEMGMT ---
RN CM Assessment. Presentation: AFIB/RVR, ESRD, Sepsis, pneumonia. WBC 15.6, Troponin 0.083. Zosyn 3.375 gm. Outpt dialysis: [facility] MWF. Plan is for dialysis tomorrow. Amiodarone gtt on admission, Dig 250 mcg IV x 1. Started on Xarelto. PCP: Physician @ [facility]: with [facility] Referral: Return to SNF on discharge. Joshua BARRAGAN RN ACM
[2018-11-19 16:51] LABS: Bedside Glucose 145 mg/dL (70-110)
[2018-11-19] MEDS: Docusate Sodium 100 MG Capsule PO (21:43)
[2018-11-19] MEDS: Atorvastatin Calcium 40 MG Tablet PO (21:43)
[2018-11-19] MEDS: Insulin Lispro 100 UNIT/ML INSULN.PEN SC (21:46)
[2018-11-19 21:55] LABS: Bedside Glucose 162 mg/dL (70-110)
[2018-11-20] VITALS (14 sets, daily range): BP systolic 86–103; BP diastolic 30–49; PULSE 65–106; RESP 16–21; TEMP 36.3–37.2; O2SAT 94–100
[2018-11-20] MEDS: 0.9% NaCl Peripheral Flush Adult/Peds IV ×3 (02:58→19:14)
[2018-11-20 03:25] LABS: Anion Gap 11 (5-15); BUN 31 mg/dL (7-18); BUN/Creat Ratio 6.6 RATIO (10-20); Calcium,Total 8.4 mg/dL (8.5-10.1); Chloride 98 mmol/L (98-107); EST Glomerular Filtration Rate 10 mL/min (>60); Est Glom Filt Rate - Afr Amer 12 mL/min (>60); Estimated Creatinine Clearance 6.74 ml/min; Glucose 121 mg/dL (74-106); Potassium 4.7 mmol/L (3.5-5.1); Sodium Level 140 mmol/L (136-145)
[2018-11-20 06:36] LABS: Bedside Glucose 90 mg/dL (70-110)
--- NOTE | 2018-11-20 08:16 | PCM.PN.CARD ---
Subjectve: Patient seen and evaluated. Objective: Vital Signs Temp Pulse Resp BP Pulse Ox 97.4 F L 100 20 H 102/35 L 97 11/20/18 02:00 11/20/18 07:52 11/20/18 02:00 11/20/18 02:00 11/20/18 02:00 Oxygen Flow Rate (L/min) 2 Oxygen Delivery Method Room Air Weight: 152 lb 5.431 oz Body Mass Index (BMI) 29.7 Intake and Output for Last 24 Hours 11/18/18 11/19/18 11/20/18 23:59 23:59 23:59 Intake Total 615 / 615 1075.7 / 1075.7 108.8 / 108.8 Balance 615 / 615 1075.7 / 1075.7 108.8 / 108.8 General: Awake, Alert, Oriented x 3 HEENT: PERRL, EOMI, Sclera Non Icteric Neck: Supple, Good ROM, No Lymph Node Enlargement Lungs: Clear to auscultation Cardiovascular: Irregular Rhythm, Normal S1, Normal S2, No Murmurs, No Rubs, No Gallops Vascular: No Carotid Bruits, Normal Femoral Pulses, Normal Radial Pulses, Normal Dorsalis Pedal Pulse, Normal Posterior Tibial Pulses Abdomen: Bowel Sounds Present, Soft, Non Tender, No HSM, No Organomegaly Extremities: No Cyanosis, No Clubbing, No edema Musculoskeletal: No Erythema Lymphatic: No Lymph Node Enlargement Neurological: No Focal Motor or Sensory Deficit 11/19/18 08:45: WBC 11.0, RBC 3.44 L, Hgb 9.9 L, Hct 35.6 L, MCV 103.5 H, MCH 28.8, MCHC 27.8 L, RDW 19.7 H, RDW Differential 71.3 H, Plt Count 292, MPV 9.4, Immature Gran % (Auto) 0.500, Neut % (Auto) 80.6 H, Lymph % (Auto) 10.9 L, [place] % (Auto) 6.5, Eos % (Auto) 1.2, Baso % (Auto) 0.3, Absolute Neuts (auto) 8.9 H, Total Counted Not Reportable 11/19/18 08:45: Sodium 140, Potassium 4.2, Chloride 97 L, Carbon Dioxide 32.0, Anion Gap 11, BUN 21 H, Creatinine 3.79 H, Est GFR (MDRD) Af Amer 15 L, Est GFR (MDRD) Non-Af 12 L, BUN/Creatinine Ratio 5.5 L, Glucose 119 H, Calcium 8.3 L 11/19/18 10:40: Urine Color Brown, Urine Clarity Turbid, Urine pH 6.5, Ur Specific [place] 1.020, Urine Protein 500 H, Urine Glucose (UA) Normal, Urine Ketones 5 H, Urine Occult Blood 250 H, Urine Nitrite Negative, Urine Bilirubin Negative, Urine Urobilinogen Normal, Ur Leukocyte Esterase 500 H, Urine RBC 25-50 SEEN, Urine WBC >100 SEEN 11/20/18 03:05: Sodium 140, Potassium 4.7, Chloride 98, Carbon Dioxide 31.0, Anion Gap 11, BUN 31 H, Creatinine 4.70 H, Est GFR (MDRD) Af Amer 12 L, Est GFR (MDRD) Non-Af 10 L, BUN/Creatinine Ratio 6.6 L, Glucose 121 H, Calcium 8.4 L Rhythm: EKG: ECHO: Stress Test: Cardiac Cath: PCI: CT Surgery: Holter monitor: EPS: PPM: CXR: Chest CT Scan: Medical Necessity - Tobacco Use Smoking Status: Never smoker Tobacco Use: Non-smoker Assessment/Plan 1. Atrial fibrillation with a rapid ventricular response rate. Patient presents with atrial for relation with rapid ventricular response rate. At this time I would recommend that her rate be controlled with beta-graeme and amiodarone. Echocardiogram demonstrated preserved ejection fraction We will continue anticoagulation Suggest DC the beta agonists Thank you for allowing me to participate in the care of your patient. Please don't hesitate to call if any issues arise
--- NOTE | 2018-11-20 08:23 | PN.CARD_ITS ---
Subjectve: Patient seen and evaluated. Objective: Vital Signs Temp Pulse Resp BP Pulse Ox 97.4 F L 100 20 H 102/35 L 97 11/20/18 02:00 11/20/18 07:52 11/20/18 02:00 11/20/18 02:00 11/20/18 02:00 Oxygen Flow Rate (L/min) 2 Oxygen Delivery Method Room Air Weight: 152 lb 5.431 oz Body Mass Index (BMI) 29.7 Intake and Output for Last 24 Hours 11/18/18 11/19/18 11/20/18 23:59 23:59 23:59 Intake Total 615 / 615 1075.7 / 1075.7 108.8 / 108.8 Balance 615 / 615 1075.7 / 1075.7 108.8 / 108.8 General: Awake, Alert, Oriented x 3 HEENT: PERRL, EOMI, Sclera Non Icteric Neck: Supple, Good ROM, No Lymph Node Enlargement Lungs: Clear to auscultation Cardiovascular: Irregular Rhythm, Normal S1, Normal S2, No Murmurs, No Rubs, No Gallops Vascular: No Carotid Bruits, Normal Femoral Pulses, Normal Radial Pulses, Normal Dorsalis Pedal Pulse, Normal Posterior Tibial Pulses Abdomen: Bowel Sounds Present, Soft, Non Tender, No HSM, No Organomegaly Extremities: No Cyanosis, No Clubbing, No edema Musculoskeletal: No Erythema Lymphatic: No Lymph Node Enlargement Neurological: No Focal Motor or Sensory Deficit 11/19/18 08:45: WBC 11.0, RBC 3.44 L, Hgb 9.9 L, Hct 35.6 L, MCV 103.5 H, MCH 28.8, MCHC 27.8 L, RDW 19.7 H, RDW Differential 71.3 H, Plt Count 292, MPV 9.4, Immature Gran % (Auto) 0.500, Neut % (Auto) 80.6 H, Lymph % (Auto) 10.9 L, [place] % (Auto) 6.5, Eos % (Auto) 1.2, Baso % (Auto) 0.3, Absolute Neuts (auto) 8.9 H, Total Counted Not Reportable 11/19/18 08:45: Sodium 140, Potassium 4.2, Chloride 97 L, Carbon Dioxide 32.0, Anion Gap 11, BUN 21 H, Creatinine 3.79 H, Est GFR (MDRD) Af Amer 15 L, Est GFR (MDRD) Non-Af 12 L, BUN/Creatinine Ratio 5.5 L, Glucose 119 H, Calcium 8.3 L 11/19/18 10:40: Urine Color Brown, Urine Clarity Turbid, Urine pH 6.5, Ur Specific [place] 1.020, Urine Protein 500 H, Urine Glucose (UA) Normal, Urine Ketones 5 H, Urine Occult Blood 250 H, Urine Nitrite Negative, Urine Bilirubin Negative, Urine Urobilinogen Normal, Ur Leukocyte Esterase 500 H, Urine RBC 25- 50 SEEN, Urine WBC >100 SEEN 11/20/18 03:05: Sodium 140, Potassium 4.7, Chloride 98, Carbon Dioxide 31.0, Anion Gap 11, BUN 31 H, Creatinine 4.70 H, Est GFR (MDRD) Af Amer 12 L, Est GFR (MDRD) Non-Af 10 L, BUN/Creatinine Ratio 6.6 L, Glucose 121 H, Calcium 8.4 L Rhythm: EKG: ECHO: Stress Test: Cardiac Cath: PCI: CT Surgery: Holter monitor: EPS: PPM: CXR: Chest CT Scan: Medical Necessity - Tobacco Use Smoking Status: Never smoker Tobacco Use: Non-smoker Assessment/Plan 1. Atrial fibrillation with a rapid ventricular response rate. Patient presents with atrial for relation with rapid ventricular response rate. At this time I would recommend that her rate be controlled with beta-graeme and amiodarone. * Echocardiogram demonstrated preserved ejection fraction * We will continue anticoagulation * Suggest DC the beta agonists * * Thank you for allowing me to participate in the care of your patient. Please don't hesitate to call if any issues arise
--- NOTE | 2018-11-20 08:40 | PCM.PROGNOTE ---
Patient Problems: Active and Suspected Problems Atrial fibrillation with RVR (Acute) Pneumonia (Acute) Severe sepsis (Acute) Subjective: Day # 3 All events of the past 24 hours of been reviewed. Afebrile since admission BP's have been borderline low - beta blockers have been held All Lab was personally reviewed. Potassium is 4.7 today. Blood sugars are well controlled. Telemetry: Atrial fibrillation better rate control on amiodarone Dr. Nayak and Legionella antigens are negative. Gram stain has 4+ white blood cells and the culture is pending. Fluids a swab was negative. respiratory panel was negative. Blood cultures are pending. Continues to cough. Sputum is somewhat blood-tinged. Denies chest pain. Denies shortness of breath, palpitations, lightheadedness. - Physical Exam General: Alert, Oriented x3, Cooperative, No apparent distress HEENT: Atraumatic, PERRLA Neck: Supple, No Nodes, Trachea Midline Lungs: Diminished, - - few coarse crackles anteriorly. Not tachypneic at rest, no conversational dyspnea, no accessory muscle use. No wheezes. Cardiovascular: Normal S1, Normal S2, Irregular Rate, No Gallop Abdomen: Bowel Sounds Present, Soft, Non Tender, Non-Distended Extremities: No edema Skin: No rashes Neurological: Cranial nerves II-XII grossly intact, Neuro grossly intact Psych/Mental Status: Normal Affect, Appropriate Vital Signs Temp Pulse Resp BP Pulse Ox 97.4 F L 100 20 H 102/35 L 97 11/20/18 02:00 11/20/18 07:52 11/20/18 02:00 11/20/18 02:00 11/20/18 02:00 Oxygen Flow Rate (L/min) 2 Oxygen Delivery Method Nasal Cannula Weight: 152 lb 5.431 oz Body Mass Index (BMI) 29.7 Intake and Output for Last 24 Hours 11/18/18 11/19/18 11/20/18 23:59 23:59 23:59 Intake Total 615 / 615 1075.7 / 1075.7 108.8 / 108.8 Balance 615 / 615 1075.7 / 1075.7 108.8 / 108.8 Microbiology Past 72 Hours 11/19/18 10:40 Legionella Antigen - Final Urine Catheter - Catheter 11/19/18 10:40 Streptococcus pneumoniae Antigen (M - Final Urine Catheter - Catheter 11/18/18 20:50 Gram Stain - Final Sputum, Expectorated/Coughed 11/18/18 15:35 Respiratory Panel (PCR) - Final Mucosa - Nasopharyngeal 11/18/18 15:35 Influenza Types A,B Direct FA (RAEGAN) - Final Mucosa - Nose Laboratory Tests Past 24 Hrs 11/19/18 11/19/18 11/19/18 08:45 08:45 10:40 WBC 11.0 RBC 3.44 L Hgb 9.9 L Hct 35.6 L MCV 103.5 H MCH 28.8 MCHC 27.8 L RDW 19.7 H RDW Differential 71.3 H Plt Count 292 MPV 9.4 Immature Gran % (Auto) 0.500 Neut % (Auto) 80.6 H Lymph % (Auto) 10.[address] [place] % (Auto) 6.5 Eos % (Auto) 1.2 Baso % (Auto) 0.3 Absolute Neuts (auto) 8.9 H Absolute Lymphs (auto) 1.20 Total Counted Not Reportable Hypochromasia 1+ Anisocytosis 2+ Sodium 140 Potassium 4.2 Chloride 97 L Carbon Dioxide 32.0 Anion Gap 11 BUN 21 H Creatinine 3.79 H Estim Creat Clear Calc 8.36 Est GFR (MDRD) Af Amer 15 L Est GFR (MDRD) Non-Af 12 L BUN/Creatinine Ratio 5.5 L Glucose 119 H Calcium 8.3 L Urine Color Brown Urine Clarity Turbid Urine pH 6.5 Ur Specific [place] 1.020 Urine Protein 500 H Urine Glucose (UA) Normal Urine Ketones 5 H Urine Occult Blood 250 H Urine Nitrite Negative Urine Bilirubin Negative Urine Urobilinogen Normal Ur Leukocyte Esterase 500 H Urine RBC 25-50 SEEN Urine WBC >100 SEEN Ur Squamous Epith Cells 0-5 SEEN Urine Bacteria 2+ Urine Mucus 0 SEEN 11/20/18 03:05 WBC RBC Hgb Hct MCV MCH MCHC RDW RDW Differential Plt Count MPV Immature Gran % (Auto) Neut % (Auto) Lymph % (Auto) [place] % (Auto) Eos % (Auto) Baso % (Auto) Absolute Neuts (auto) Absolute Lymphs (auto) Total Counted Hypochromasia Anisocytosis Sodium 140 Potassium 4.7 Chloride 98 Carbon Dioxide 31.0 Anion Gap 11 BUN 31 H Creatinine 4.70 H Estim Creat Clear Calc 6.74 Est GFR (MDRD) Af Amer 12 L Est GFR (MDRD) Non-Af 10 L BUN/Creatinine Ratio 6.6 L Glucose 121 H Calcium 8.4 L Urine Color Urine Clarity Urine pH Ur Specific [place] Urine Protein Urine Glucose (UA) Urine Ketones Urine Occult Blood Urine Nitrite Urine Bilirubin Urine Urobilinogen Ur Leukocyte Esterase Urine RBC Urine WBC Ur Squamous Epith Cells Urine Bacteria Urine Mucus POC Glucose 11/20/18 11/19/18 11/19/18 06:32 21:45 16:46 POC Glucose 90 162 H 145 H 11/19/18 12:05 POC Glucose 116 H Medical Necessity - Tobacco Use Smoking Status: Never smoker Tobacco Use: Non-smoker Assessment/Plan All Active Problems Atrial fibrillation with RVR (Acute) Pneumonia (Acute) Severe sepsis (Acute) Impressions 1. AF with RVR -heart rate is currently controlled with amiodarone. We have been holding the beta-graeme due to low blood pressures. 2. acute severe sepsis secondary to HCAP +/- UTI-cultures are pending 3. End-stage renal disease on hemodialysis 4. Diabetes mellitus type 2-blood sugars are well controlled on Lantus 8 units daily with sliding scale insulin coverage 5. Hyperlipidemia 6. History of iron deficiency anemia 7. COPD - no inhalers or aerosols listed on the med reconciliation 8. Mild left ventricular hypertrophy 9. Pulmonary hypertension with a PA systolic estimated at 45 Continue Zosyn and await the results of the urine and sputum cultures Increase activity Continue amiodarone Incentive spirometry Make the aerosols PRN...she is not wheezing DC the Toprol XL and start Lopressor 12.5 mg BID - hold if the systolic is <100 Recheck a PA lateral chest x-ray in the a.m. Code Visit Inpatient E&M: 83047 Subs Hosp L2
--- NOTE | 2018-11-20 08:56 | PN_ITS ---
Addendum entered and electronically signed by ROBERTO CARLOS Oconnell 11/20/18 14:42: Code Visit PA Addendum: Subjective: Pt resting comfortably in bed NAD. Undergoing dialysis today per Dr. Vanessa. She feels improved. Her rate is much better, however her BP is tenuous and her lopressor was held. She is not dizzy or LH. She does continue to have a pr oductive cough. No pleurisy. She is no longer SOB, although she remains on O2. Subjective: General: Resting comfortably NAD Psych: A/Ox3 normal affect HEENT: PEARRLA AT NC Neck: Supple NT CV: RRR no m/t/r/g/h Resp: CTA Abd: [id number] Soft NT no guarding or rigidity Ext: DP2+= no edema Skin: W/D normal turgor Lymph/Heme: No active bleeding or adenopathy Neuro: CN2-12 intact Echo: Preserved EF, PASP 45. A/P: 1. AFib RVR 2/2 sepsis- cardiology following. toprol to lopressor with hold parameters. Amio. Rate controlled but poor BP. Check Mag. On xarelto 2. Acute severe sepsis 2/2 UTI, HCAP - zosyn. Improved. Follow cultures. Repeat CXR in am. Gram stain with 4+WBC, 2+ GPC, 1+ GPR. Resp mckenna neg. GNR in urine. 3. ESRD - dialysis today 4. COPD chronic hypoxic resp failure - stable 5. T2DM - levemir, ssi 6. hx CHF - no exacerbation DVT ppx: xarelto DC planning: SNF This patient was seen by Mckay Hogan PA-C under the supervision of Doctor Cameron. Original Note: Patient Problems: Active and Suspected Problems Atrial fibrillation with RVR (Acute) Pneumonia (Acute) Severe sepsis (Acute) Subjective: Zosyn Day # 3 All events of the past 24 hours of been reviewed. Afebrile since admission BP's have been borderline low - beta blockers have been held All Lab was personally reviewed. Potassium is 4.7 today. Blood sugars are well controlled. Telemetry: Atrial fibrillation better rate control on amiodarone Dr. Nayak and Legionella antigens are negative. Gram stain has 4+ white blood cells and the culture is pending. Fluids a swab was negative. respiratory panel was negative. Blood cultures are pending. Continues to cough. Sputum is somewhat blood-tinged. Denies chest pain. Denies shortness of breath, palpitations, lightheadedness. - Physical Exam General: Alert, Oriented x3, Cooperative, No apparent distress HEENT: Atraumatic, PERRLA Neck: Supple, No Nodes, Trachea Midline Lungs: Diminished, - - few coarse crackles anteriorly. Not tachypneic at rest, no conversational dyspnea, no accessory muscle use. No wheezes. Cardiovascular: Normal S1, Normal S2, Irregular Rate, No Gallop Abdomen: Bowel Sounds Present, Soft, Non Tender, Non-Distended Extremities: No edema Skin: No rashes Neurological: Cranial nerves II-XII grossly intact, Neuro grossly intact Psych/Mental Status: Normal Affect, Appropriate Vital Signs Temp Pulse Resp BP Pulse Ox 97.4 F L 100 20 H 102/35 L 97 11/20/18 02:00 11/20/18 07:52 11/20/18 02:00 11/20/18 02:00 11/20/18 02:00 Oxygen Flow Rate (L/min) 2 Oxygen Delivery Method Nasal Cannula Weight: 152 lb 5.431 oz Body Mass Index (BMI) 29.7 Intake and Output for Last 24 Hours 11/18/18 11/19/18 11/20/18 23:59 23:59 23:59 Intake Total 615 / 615 1075.7 / 1075.7 108.8 / 108.8 Balance 615 / 615 1075.7 / 1075.7 108.8 / 108.8 Microbiology Past 72 Hours 11/19/18 10:40 Legionella Antigen - Final Urine Catheter - Catheter 11/19/18 10:40 Streptococcus pneumoniae Antigen (M - Final Urine Catheter - Catheter 11/18/18 20:50 Gram Stain - Final Sputum, Expectorated/Coughed 11/18/18 15:35 Respiratory Panel (PCR) - Final Mucosa - Nasopharyngeal 11/18/18 15:35 Influenza Types A,B Direct FA (RAEGAN) - Final Mucosa - Nose Laboratory Tests Past 24 Hrs 11/19/18 11/19/18 11/19/18 08:45 08:45 10:40 WBC 11.0 RBC 3.44 L Hgb 9.9 L Hct 35.6 L MCV 103.5 H MCH 28.8 MCHC 27.8 L RDW 19.7 H RDW Differential 71.3 H Plt Count 292 MPV 9.4 Immature Gran % (Auto) 0.500 Neut % (Auto) 80.6 H Lymph % (Auto) 10.9 L [place] % (Auto) 6.5 Eos % (Auto) 1.2 Baso % (Auto) 0.3 Absolute Neuts (auto) 8.9 H Absolute Lymphs (auto) 1.20 Total Counted Not Reportable Hypochromasia 1+ Anisocytosis 2+ Sodium 140 Potassium 4.2 Chloride 97 L Carbon Dioxide 32.0 Anion Gap 11 BUN 21 H Creatinine 3.79 H Estim Creat Clear Calc 8.36 Est GFR (MDRD) Af Amer 15 L Est GFR (MDRD) Non-Af 12 L BUN/Creatinine Ratio 5.5 L Glucose 119 H Calcium 8.3 L Urine Color Brown Urine Clarity Turbid Urine pH 6.5 Ur Specific [place] 1.020 Urine Protein 500 H Urine Glucose (UA) Normal Urine Ketones 5 H Urine Occult Blood 250 H Urine Nitrite Negative Urine Bilirubin Negative Urine Urobilinogen Normal Ur Leukocyte Esterase 500 H Urine RBC 25-50 SEEN Urine WBC >100 SEEN Ur Squamous Epith Cells 0-5 SEEN Urine Bacteria 2+ Urine Mucus 0 SEEN 11/20/18 03:05 WBC RBC Hgb Hct MCV MCH MCHC RDW RDW Differential Plt Count MPV Immature Gran % (Auto) Neut % (Auto) Lymph % (Auto) [place] % (Auto) Eos % (Auto) Baso % (Auto) Absolute Neuts (auto) Absolute Lymphs (auto) Total Counted Hypochromasia Anisocytosis Sodium 140 Potassium 4.7 Chloride 98 Carbon Dioxide 31.0 Anion Gap 11 BUN 31 H Creatinine 4.70 H Estim Creat Clear Calc 6.74 Est GFR (MDRD) Af Amer 12 L Est GFR (MDRD) Non-Af 10 L BUN/Creatinine Ratio 6.6 L Glucose 121 H Calcium 8.4 L Urine Color Urine Clarity Urine pH Ur Specific [place] Urine Protein Urine Glucose (UA) Urine Ketones Urine Occult Blood Urine Nitrite Urine Bilirubin Urine Urobilinogen Ur Leukocyte Esterase Urine RBC Urine WBC Ur Squamous Epith Cells Urine Bacteria Urine Mucus POC Glucose 11/20/18 11/19/18 11/19/18 06:32 21:45 16:46 POC Glucose 90 162 H 145 H 11/19/18 12:05 POC Glucose 116 H Medical Necessity - Tobacco Use Smoking Status: Never smoker Tobacco Use: Non-smoker Assessment/Plan All Active Problems Atrial fibrillation with RVR (Acute) Pneumonia (Acute) Severe sepsis (Acute) Impressions 1. AF with RVR -heart rate is currently controlled with amiodarone. We have been holding the beta-graeme due to low blood pressures. 2. acute severe sepsis secondary to HCAP +/- UTI-cultures are pending 3. End-stage renal disease on hemodialysis 4. Diabetes mellitus type 2-blood sugars are well controlled on Lantus 8 units daily with sliding scale insulin coverage 5. Hyperlipidemia 6. History of iron deficiency anemia 7. COPD - no inhalers or aerosols listed on the med reconciliation 8. Mild left ventricular hypertrophy 9. Pulmonary hypertension with a PA systolic estimated at 45 Continue Zosyn and await the results of the urine and sputum cultures Increase activity Continue amiodarone Incentive spirometry Make the aerosols PRN...she is not wheezing DC the Toprol XL and start Lopressor 12.5 mg BID - hold if the systolic is <100 Recheck a PA lateral chest x-ray in the a.m. Code Visit Inpatient E&M: 56030 Subs Hosp L2
--- NOTE | 2018-11-20 09:44 | CASEMGMT ---
Addendum entered by Alexandria Vaughn 11/20/18 13:43: SW spoke w/Ketty from [facility], she did not receive the updates faxed yesterday, SW faxed updates today to Ketty. SW will continue to follow. LEAH Blanco, PER DIEM CLERK Original Note: SW spoke w/pt in room, pt's sister is also present. Pt confirmed that her son is POA, he is aware that pt is here. SW asked pt about returning to [facility], pt in agreement with this at discharge. SW called Ketty at [facility], message left to call this SW back. SW will continue to follow. LEAH Blanco, PER DIEM CLERK
--- NOTE | 2018-11-20 13:24 | CASEMGMT ---
Addendum entered by Alexandria Vaughn 11/20/18 13:39: Ketty from [facility] faxed over POA form, it lists her son as POA, and this is who pt had said was POA. Form is from 1994. SW placed POA form on chart. LEAH Blanco, LOG POND WORKER Original Note: SW called [facility], message left for admissions to call this SW back and will speak w/her when she returns call about LW/POA, as we do not have copies in our chart here. LEAH Blanco, LOG POND WORKER
[2018-11-20] MEDS: Heparin 10,000 UNITS/10 ML Vial IV (13:45)
--- NOTE | 2018-11-20 13:49 | PCM.PN.REN ---
Patient Problems: Active and Suspected Problems Atrial fibrillation with RVR (Acute) Pneumonia (Acute) Severe sepsis (Acute) Subjective: Patient was seen during hemodialysis session today. Borderline low blood pressure and tachycardic. Asymptomatic No nausea no vomiting. Breathing is stable - Physical Exam General: Alert, Oriented x3 HEENT: Atraumatic Oral: Moist Mucosa Neck: Supple, No JVD Lungs: No wheeze, Diminished - At lung bases Cardiovascular: Irregular Rate, Tachycardic Abdomen: Bowel Sounds Present, Soft, Non Tender Extremities: No clubbing, No cyanosis, No edema Musculoskeletal: No Tenderness to Palpation of Joints or Extremities Lymphatic: No Cervical, Supraclavicular, or Inguinal Adenopathy Neurological: Cranial nerves II-XII grossly intact, Neuro grossly intact Psych/Mental Status: Normal Affect Vital Signs Temp Pulse Resp BP Pulse Ox 98.2 F 99 16 99/47 L 94 11/20/18 12:52 11/20/18 12:52 11/20/18 12:52 11/20/18 12:52 11/20/18 12:52 Oxygen Flow Rate (L/min) 2 Oxygen Delivery Method Room Air Weight: 69.1 kg Body Mass Index (BMI) 29.7 Intake and Output for Last 24 Hours 11/18/18 11/19/18 11/20/18 23:59 23:59 23:59 Intake Total 615 / 615 1075.7 / 1075.7 348.8 / 348.8 Output Total 0 / 0 Balance 615 / 615 1075.7 / 1075.7 348.8 / 348.8 Microbiology Past 72 Hours 11/19/18 10:40 Urine Culture - Preliminary Urine Catheter - Catheter GNR lactose cyber transport systems specialist 11/19/18 10:40 Legionella Antigen - Final Urine Catheter - Catheter 11/19/18 10:40 Streptococcus pneumoniae Antigen (M - Final Urine Catheter - Catheter 11/18/18 20:50 Gram Stain - Final Sputum, Expectorated/Coughed 11/18/18 15:35 Respiratory Panel (PCR) - Final Mucosa - Nasopharyngeal 11/18/18 15:35 Influenza Types A,B Direct FA (RAEGAN) - Final Mucosa - Nose Laboratory Tests Past 24 Hrs 11/19/18 11/20/18 08:45 03:05 Total Counted Not Reportable Sodium 140 Potassium 4.7 Chloride 98 Carbon Dioxide 31.0 Anion Gap 11 BUN 31 H Creatinine 4.70 H Estim Creat Clear Calc 6.74 Est GFR (MDRD) Af Amer 12 L Est GFR (MDRD) Non-Af 10 L BUN/Creatinine Ratio 6.6 L Glucose 121 H Calcium 8.4 L POC Glucose 11/20/18 11/19/18 11/19/18 06:32 21:45 16:46 POC Glucose 90 162 H 145 H Medical Necessity - Tobacco Use Smoking Status: Never smoker Tobacco Use: Non-smoker Assessment/Plan All Active Problems Atrial fibrillation with RVR (Acute) Pneumonia (Acute) Severe sepsis (Acute) 1-end-stage renal disease on Sunday hemodialysis schedule. Last hemodialysis yesterday. Patient goes to [facility] at [place] . Dr. Adame is a primary hairspring staker. He was seen during hemodialysis session today. Blood flow rate 300, dialysis flow rate 600, ultrafiltration was decreased due to hypotension tachycardia. Hemodialysis access is a right IJ tunneled catheter which is functioning well. 2-anemia. Continue ELISA as per the chronic order. Received Epogen 4200 units IV today 3-BMD. Not on phosphorus binder. Please check phosphorus level in the morning 4-sepsis due to pneumonia. On Zosyn and vancomycin as per the ICU team. 5-A. fib with RVR. Heart rate is better controlled. Cardiology service is following Renal team will continue to follow. Please call with any question or concern. Julianna Steel MD
--- NOTE | 2018-11-20 13:52 | PN.RENAL_ITS ---
Patient Problems: Active and Suspected Problems Atrial fibrillation with RVR (Acute) Pneumonia (Acute) Severe sepsis (Acute) Subjective: Patient was seen during hemodialysis session today. Borderline low blood pressure and tachycardic. Asymptomatic No nausea no vomiting. Breathing is stable - Physical Exam General: Alert, Oriented x3 HEENT: Atraumatic Oral: Moist Mucosa Neck: Supple, No JVD Lungs: No wheeze, Diminished - At lung bases Cardiovascular: Irregular Rate, Tachycardic Abdomen: Bowel Sounds Present, Soft, Non Tender Extremities: No clubbing, No cyanosis, No edema Musculoskeletal: No Tenderness to Palpation of Joints or Extremities Lymphatic: No Cervical, Supraclavicular, or Inguinal Adenopathy Neurological: Cranial nerves II-XII grossly intact, Neuro grossly intact Psych/Mental Status: Normal Affect Vital Signs Temp Pulse Resp BP Pulse Ox 98.2 F 99 16 99/47 L 94 11/20/18 12:52 11/20/18 12:52 11/20/18 12:52 11/20/18 12:52 11/20/18 12:52 Oxygen Flow Rate (L/min) 2 Oxygen Delivery Method Room Air Weight: 69.1 kg Body Mass Index (BMI) 29.7 Intake and Output for Last 24 Hours 11/18/18 11/19/18 11/20/18 23:59 23:59 23:59 Intake Total 615 / 615 1075.7 / 1075.7 348.8 / 348.8 Output Total 0 / 0 Balance 615 / 615 1075.7 / 1075.7 348.8 / 348.8 Microbiology Past 72 Hours 11/19/18 10:40 Urine Culture - Preliminary Urine Catheter - Catheter GNR lactose rn examiner 11/19/18 10:40 Legionella Antigen - Final Urine Catheter - Catheter 11/19/18 10:40 Streptococcus pneumoniae Antigen (M - Final Urine Catheter - Catheter 11/18/18 20:50 Gram Stain - Final Sputum, Expectorated/Coughed 11/18/18 15:35 Respiratory Panel (PCR) - Final Mucosa - Nasopharyngeal 11/18/18 15:35 Influenza Types A,B Direct FA (RAEGAN) - Final Mucosa - Nose Laboratory Tests Past 24 Hrs 11/19/18 11/20/18 08:45 03:05 Total Counted Not Reportable Sodium 140 Potassium 4.7 Chloride 98 Carbon Dioxide 31.0 Anion Gap 11 BUN 31 H Creatinine 4.70 H Estim Creat Clear Calc 6.74 Est GFR (MDRD) Af Amer 12 L Est GFR (MDRD) Non-Af 10 L BUN/Creatinine Ratio 6.6 L Glucose 121 H Calcium 8.4 L POC Glucose 11/20/18 11/19/18 11/19/18 06:32 21:45 16:46 POC Glucose 90 162 H 145 H Medical Necessity - Tobacco Use Smoking Status: Never smoker Tobacco Use: Non-smoker Assessment/Plan All Active Problems Atrial fibrillation with RVR (Acute) Pneumonia (Acute) Severe sepsis (Acute) 1-end-stage renal disease on Sunday hemodialysis schedule. Last hemodialysis yesterday. Patient goes to [facility] at [place] . Dr. Adame is a primary commercial management accountant. He was seen during hemodialysis session today. Blood flow rate 300, dialysis flow rate 600, ultrafiltration was decreased due to hypotension tachycardia. Hemodialysis access is a right IJ tunneled catheter which is functioning well. 2-anemia. Continue ELISA as per the chronic order. Received Epogen 4200 units IV today 3-BMD. Not on phosphorus binder. Please check phosphorus level in the morning 4-sepsis due to pneumonia. On Zosyn and vancomycin as per the ICU team. 5-A. fib with RVR. Heart rate is better controlled. Cardiology service is following Renal team will continue to follow. Please call with any question or concern. Julianna Steel MD
--- NOTE | 2018-11-20 13:57 | DIALYSIS ---
Hd x 3 hours complete. Ran on 2k bath. Only able to remove 300ml of fluid d/t low bp. Dr. Steel is aware. Used right chest wall catheter. catheter closed with heparin per fill volume. Epogen given as ordered. Report was given to JAVY Garcia
[2018-11-20 15:51] LABS: Magnesium 1.7 mg/dL (1.6-2.6)
[2018-11-20] MEDS: Rivaroxaban 15 MG Tablet PO (17:10)
[2018-11-20] MEDS: guaiFENesin 1,200 MG Tablet 1200 MG PO ×2 (17:11→22:28)
[2018-11-20] MEDS: Gabapentin 100 MG Capsule PO (17:11)
[2018-11-20] MEDS: Aspirin 81 MG TAB.CHEW PO (17:11)
[2018-11-20] MEDS: Pantoprazole Sodium 20 MG Tablet PO (17:11)
[2018-11-20] MEDS: Ferrous Sulfate 325 MG Tablet PO (17:12)
[2018-11-20] MEDS: Amiodarone 200 MG Tablet PO ×2 (17:12→22:28)
[2018-11-20 17:20] LABS: Bedside Glucose 121 mg/dL (70-110)
[2018-11-20] MEDS: Insulin Lispro 100 UNIT/ML INSULN.PEN SC (22:27)
[2018-11-20] MEDS: Atorvastatin Calcium 40 MG Tablet PO (22:28)
[2018-11-20] MEDS: Nystatin Powder 15gm Bottle 1 APPLIC TOPICAL (22:28)
[2018-11-20] MEDS: Docusate Sodium 100 MG Capsule PO (22:28)
[2018-11-20 22:56] LABS: Bedside Glucose 183 mg/dL (70-110)
[2018-11-21] VITALS (10 sets, daily range): BP systolic 96–109; BP diastolic 43–53; PULSE 80–94; RESP 15–18; TEMP 36.5–36.9; O2SAT 96–99
--- NOTE | 2018-11-21 01:55 | NURSING ---
this RN is taking over care of this patient at this time
[2018-11-21] MEDS: 0.9% NaCl Peripheral Flush Adult/Peds IV ×2 (03:41→12:28)
--- NOTE | 2018-11-21 05:55 | RAD_ITS ---
STUDY: X-RAY CHEST REASON FOR EXAM: Female, 83 years old. Weakness. History of pneumonia. TECHNIQUE: AP and lateral views of the chest. COMPARISON: Comparison is made with prior study date November 18, 2018. FINDINGS: EKG electrodes are seen. A left-sided portacatheter is seen with the tips in the midportion of the superior vena cava. A right-sided double-lumen catheter is seen with the tip in the right atrium. Stable small left pleural effusion with left basilar infiltration and/or atelectasis. Stable blunting of the right costophrenic angle. Stable mild degree of vascular congestion. There is mild cardiac enlargement. Normal mediastinum and andreina. Normal visualized pulmonary arteries. There is atherosclerotic tortuosity of the aortic arch and descending thoracic aorta. There are diffuse degenerative changes of the visualized thoracic spine. Normal visualized ribs, clavicles, and shoulders. There is no demonstrated abnormality of the visualized soft tissue structures of the upper abdomen. RAD/Chest PA and Lateral IMPRESSION: Stable examination. Electronically Signed: Donte Frankel, at 9:47 EDT , Service support ,
[2018-11-21 07:01] LABS: Bedside Glucose 83 mg/dL (70-110)
[2018-11-21 07:39] LABS: Absolute Lymphocyte Count 0.77 X10^3/ul (0.83-4.51); Basophil# 0.02 X10^3/uL; Basophil% 0.2 % (0-1); Eosinophils% 1.7 % (0-5); Hematocrit 34.4 % (37-47); Hemoglobin 9.9 g/dl (12.0-15.0); Lymphocyte # 0.77 X10^3/ul (4.0); Lymphocyte % 6.5 % (19-41); Mean Corp Hgb Conc 28.8 g/gl (32-36); Mean Corpuscular Hgb 28.5 pg (27.0-32.0); Mean Corpuscular Volume 99.1 fL (81-99); Mean Platelet Vol. 9.6 fl (6.2-12.0); Monocyte# 0.76 X10^3/uL; Monocyte% 6.5 % (0-10); Neutrophil # 9.99 X10^3/uL (2.7-7.7); Neutrophil % 84.8 % (47-70); POSITIVE COUNT NO; POSITIVE DIFFERENTIAL NO; Platelet Count 248 K/mm3 (150-450); RBC Distribution Width CV 20.3 % (11.6-14.6); RBC Distribution Width SD 72.8 fl (35.1-43.9); Red Blood Count 3.47 M/mm3 (4.2-5.4); White Blood Count 11.8 K/mm3 (4.4-11.0)
[2018-11-21 07:44] LABS: Differential Indicated SCAN CRITERIA MET; POSITIVE MORPHOLOGY YES
[2018-11-21 08:06] LABS: Anisocytosis 3+; Hypochromasia 1+
[2018-11-21 08:15] LABS: Anion Gap 8 (5-15); BUN 19 mg/dL (7-18); BUN/Creat Ratio 6.1 RATIO (10-20); Calcium,Total 7.9 mg/dL (8.5-10.1); Chloride 96 mmol/L (98-107); Creatinine, Serum 3.11 mg/dL (0.55-1.02); EST Glomerular Filtration Rate 15 mL/min (>60); Est Glom Filt Rate - Afr Amer 19 mL/min (>60); Estimated Creatinine Clearance 10.19 ml/min; Glucose 75 mg/dL (74-106); Potassium 4.4 mmol/L (3.5-5.1); Sodium Level 130 mmol/L (136-145)
[2018-11-21] MEDS: Aspirin 81 MG TAB.CHEW PO (08:37)
[2018-11-21] MEDS: Ferrous Sulfate 325 MG Tablet PO (08:37)
[2018-11-21] MEDS: Acetaminophen 325 MG Tablet 650 MG PO (08:41)
[2018-11-21] MEDS: Amiodarone 200 MG Tablet PO (08:43)
[2018-11-21] MEDS: Rivaroxaban 15 MG Tablet PO (08:43)
[2018-11-21] MEDS: Gabapentin 100 MG Capsule PO (08:43)
[2018-11-21] MEDS: Docusate Sodium 100 MG Capsule PO (08:44)
[2018-11-21] MEDS: guaiFENesin 1,200 MG Tablet 1200 MG PO (08:44)
[2018-11-21] MEDS: Pantoprazole Sodium 20 MG Tablet PO (08:44)
[2018-11-21] MEDS: Nystatin Powder 15gm Bottle 1 APPLIC TOPICAL (12:19)
[2018-11-21 12:27] LABS: Bedside Glucose 99 mg/dL (70-110)
[2018-11-21] MEDS: Metoprolol Tartrate 25 MG Tablet 12.5 MG PO (12:36)
--- NOTE | 2018-11-21 12:57 | PN.RENAL_ITS ---
Patient Problems: Active and Suspected Problems Atrial fibrillation with RVR (Acute) Pneumonia (Acute) Severe sepsis (Acute) Subjective: Patient is doing fine. No nausea no vomiting no shortness of breath - Physical Exam General: Alert, Oriented x3 HEENT: Atraumatic Oral: Moist Mucosa Neck: Supple, No JVD Lungs: Clear to auscultation Cardiovascular: Regular rate, Regular Rhythm, Normal S1, Normal S2 Abdomen: Bowel Sounds Present, Soft, Non Tender Extremities: No edema Skin: No rashes Lymphatic: No Cervical, Supraclavicular, or Inguinal Adenopathy Neurological: Cranial nerves II-XII grossly intact, Neuro grossly intact Psych/Mental Status: Normal Affect Vital Signs Temp Pulse Resp BP Pulse Ox 97.8 F 80 18 109/53 L 98 11/21/18 12:31 11/21/18 12:36 11/21/18 12:31 11/21/18 12:36 11/21/18 12:31 Oxygen Flow Rate (L/min) 1 Oxygen Delivery Method Nasal Cannula Weight: 69.1 kg Body Mass Index (BMI) 29.7 Intake and Output for Last 24 Hours 11/19/18 11/20/18 11/21/18 23:59 23:59 23:59 Intake Total 1075.7 / 1075.7 751.8 / 751.8 521 / 521 Output Total 0 / 0 0 / 0 Balance 1075.7 / 1075.7 751.8 / 751.8 521 / 521 Microbiology Past 72 Hours 11/18/18 17:30 Blood Culture - Preliminary Blood Culture (Wb) - Anticubital Left No growth in 48 hours. 11/18/18 17:05 Blood Culture - Preliminary Blood Culture (Wb) - Right Forearm No growth in 48 hours. 11/19/18 10:40 Urine Culture - Final Urine Catheter - Catheter Klebsiella pneumoniae sp pneum 11/19/18 10:40 Legionella Antigen - Final Urine Catheter - Catheter 11/19/18 10:40 Streptococcus pneumoniae Antigen (M - Final Urine Catheter - Catheter 11/18/18 20:50 Gram Stain - Final Sputum, Expectorated/Coughed 11/18/18 15:35 Respiratory Panel (PCR) - Final Mucosa - Nasopharyngeal 11/18/18 15:35 Influenza Types A,B Direct FA (RAEGAN) - Final Mucosa - Nose Laboratory Tests Past 24 Hrs 11/20/18 11/21/18 11/21/18 03:05 07:24 07:24 WBC 11.8 H RBC 3.47 L Hgb 9.9 L Hct 34.4 L MCV 99.1 H MCH 28.5 MCHC 28.8 L RDW 20.3 H RDW Differential 72.8 H Plt Count 248 MPV 9.6 Immature Gran % (Auto) 0.300 Neut % (Auto) 84.8 H Lymph % (Auto) 6.5 L [place] % (Auto) 6.5 Eos % (Auto) 1.7 Baso % (Auto) 0.2 Absolute Neuts (auto) 10.0 H Absolute Lymphs (auto) 0.77 L Total Counted Not Reportable Hypochromasia 1+ Anisocytosis 3+ Sodium Potassium Chloride Carbon Dioxide Anion Gap BUN Creatinine Estim Creat Clear Calc Est GFR (MDRD) Af Amer Est GFR (MDRD) Non-Af BUN/Creatinine Ratio Glucose Calcium Magnesium 1.7 Hep Bs Antigen Pending 11/21/18 07:24 WBC RBC Hgb Hct MCV MCH MCHC RDW RDW Differential Plt Count MPV Immature Gran % (Auto) Neut % (Auto) Lymph % (Auto) [place] % (Auto) Eos % (Auto) Baso % (Auto) Absolute Neuts (auto) Absolute Lymphs (auto) Total Counted Hypochromasia Anisocytosis Sodium 130 L Potassium 4.4 Chloride 96 L Carbon Dioxide 26.0 Anion Gap 8 BUN 19 H Creatinine 3.11 H Estim Creat Clear Calc 10.19 Est GFR (MDRD) Af Amer 19 L Est GFR (MDRD) Non-Af 15 L BUN/Creatinine Ratio 6.1 L Glucose 75 Calcium 7.9 L Magnesium Hep Bs Antigen POC Glucose 11/21/18 11/21/18 11/20/18 12:17 06:54 22:26 POC Glucose 99 83 183 H 11/20/18 17:09 POC Glucose 121 H Medical Necessity - Tobacco Use Smoking Status: Never smoker Tobacco Use: Non-smoker Assessment/Plan All Active Problems Atrial fibrillation with RVR (Acute) Pneumonia (Acute) Severe sepsis (Acute) 1-end-stage renal disease on Sunday hemodialysis schedule. Last hemodialysis yesterday. Patient goes to [facility] at [place] . Dr. Adame is a primary internet marketing intern. Last hemodialysis session was yesterday November 20. No need for hemodialysis today. Next session is tomorrow Hemodialysis access is a right IJ tunneled catheter which is functioning well. 2-anemia. Continue ELISA as per the chronic order. Received Epogen 4200 units IV yesterday 3-BMD. Not on phosphorus binder. Please check phosphorus level in the morning 4-sepsis due to pneumonia. On Zosyn . 5-A. fib with RVR. Heart rate is better controlled. Cardiology service is following Renal team will continue to follow. Please call with any question or concern. Julianna Steel MD
--- NOTE | 2018-11-21 15:06 | PN_ITS ---
Patient Problems: Active and Suspected Problems Atrial fibrillation with RVR (Acute) Pneumonia (Acute) Severe sepsis (Acute) Subjective: All events of the past 24 hours been reviewed. She has been afebrile since admission. Vital signs are stable. She is 98-99% saturated on a 1 L nasal cannula. All events the past 24 hours been reviewed. The white blood cell count is now down to 11.8 from 15.6 at admission. Hemoglobin is stable at 9.9. Platelets are within normal limits. Sodium is low at 130 today with a chloride of 96. Potassium is 4.4. Urine culture is growing Klebsiella pneumoniae which is sensitive to Zosyn and is essentially pansensitive with the exception of ampicillin. Chest x-ray today shows persistent left pleural effusion. - Physical Exam Vital Signs Temp Pulse Resp BP Pulse Ox 97.8 F 80 18 109/53 L 98 11/21/18 12:31 11/21/18 12:36 11/21/18 12:31 11/21/18 12:36 11/21/18 12:31 Oxygen Flow Rate (L/min) 1 Oxygen Delivery Method Nasal Cannula Weight: 152 lb 5.431 oz Body Mass Index (BMI) 29.7 Intake and Output for Last 24 Hours 11/19/18 11/20/18 11/21/18 23:59 23:59 23:59 Intake Total 1075.7 / 1075.7 751.8 / 751.8 521 / 521 Output Total 0 / 0 0 / 0 Balance 1075.7 / 1075.7 751.8 / 751.8 521 / 521 Microbiology Past 72 Hours 11/18/18 20:50 Gram Stain - Final Sputum, Expectorated/Coughed Respiratory Culture - Final Mixed normal respiratory rosa. No Haemophilus, Streptococcus pneumoniae, beta-hemolytic Streptococcus or Staphylococcus aureus isolated. 11/18/18 17:30 Blood Culture - Preliminary Blood Culture (Wb) - Anticubital Left No growth in 48 hours. 11/18/18 17:05 Blood Culture - Preliminary Blood Culture (Wb) - Right Forearm No growth in 48 hours. 11/19/18 10:40 Urine Culture - Final Urine Catheter - Catheter Klebsiella pneumoniae sp pneum 11/19/18 10:40 Legionella Antigen - Final Urine Catheter - Catheter 11/19/18 10:40 Streptococcus pneumoniae Antigen (M - Final Urine Catheter - Catheter 11/18/18 15:35 Respiratory Panel (PCR) - Final Mucosa - Nasopharyngeal 11/18/18 15:35 Influenza Types A,B Direct FA (RAEGAN) - Final Mucosa - Nose Laboratory Tests Past 24 Hrs 11/20/18 11/21/18 11/21/18 03:05 07:24 07:24 WBC 11.8 H RBC 3.47 L Hgb 9.9 L Hct 34.4 L MCV 99.1 H MCH 28.5 MCHC 28.8 L RDW 20.3 H RDW Differential 72.8 H Plt Count 248 MPV 9.6 Immature Gran % (Auto) 0.300 Neut % (Auto) 84.8 H Lymph % (Auto) 6.5 L [place] % (Auto) 6.5 Eos % (Auto) 1.7 Baso % (Auto) 0.2 Absolute Neuts (auto) 10.0 H Absolute Lymphs (auto) 0.77 L Total Counted Not Reportable Hypochromasia 1+ Anisocytosis 3+ Sodium Potassium Chloride Carbon Dioxide Anion Gap BUN Creatinine Estim Creat Clear Calc Est GFR (MDRD) Af Amer Est GFR (MDRD) Non-Af BUN/Creatinine Ratio Glucose Calcium Magnesium 1.7 Hep Bs Antigen Pending 11/21/18 07:24 WBC RBC Hgb Hct MCV MCH MCHC RDW RDW Differential Plt Count MPV Immature Gran % (Auto) Neut % (Auto) Lymph % (Auto) [place] % (Auto) Eos % (Auto) Baso % (Auto) Absolute Neuts (auto) Absolute Lymphs (auto) Total Counted Hypochromasia Anisocytosis Sodium 130 L Potassium 4.4 Chloride 96 L Carbon Dioxide 26.0 Anion Gap 8 BUN 19 H Creatinine 3.11 H Estim Creat Clear Calc 10.19 Est GFR (MDRD) Af Amer 19 L Est GFR (MDRD) Non-Af 15 L BUN/Creatinine Ratio 6.1 L Glucose 75 Calcium 7.9 L Magnesium Hep Bs Antigen POC Glucose 11/21/18 11/21/18 11/20/18 12:17 06:54 22:26 POC Glucose 99 83 183 H 11/20/18 17:09 POC Glucose 121 H Medical Necessity - Tobacco Use Smoking Status: Never smoker Tobacco Use: Non-smoker Assessment/Plan All Active Problems Atrial fibrillation with RVR (Acute) Pneumonia (Acute) Severe sepsis (Acute)
--- NOTE | 2018-11-21 16:03 | PCM.TXEXTCAR ---
- Diet 11/18/18 23:00 Diet: Cardiac: Carbohydrate controlled Is pt able to select menu?: Yes - Routine Orders/Code Status Enema Type: Fleetz Enema Frequency: Daily PRN Suppository Type: Dulcolax 10mg Suppository Frequency: Daily PRN O2 Liters per Minute: 1-2 O2 Frequency: PRN Keep PO Greater than or Equal to (%): 90 Code Status: DNRCC-A - Therapies Weight Bearing: Full weight bearing Physical Therapy: Eval and Treat Occupational Therapy: Eval and Treat - Problem/Diagnosis (1) Atrial fibrillation with RVR Status: Acute Current Visit: Yes (2) Pneumonia Status: Ruled-out Current Visit: Yes (3) Severe sepsis Status: Ruled-out Current Visit: Yes (4) CHF (congestive heart failure) Status: Acute Current Visit: Yes (5) COPD (chronic obstructive pulmonary disease) Status: Chronic Current Visit: Yes (6) Chronic respiratory failure with hypoxia Status: Chronic Current Visit: Yes (7) Diabetes Status: Chronic Current Visit: Yes (8) ESRD (end stage renal disease) Status: Chronic Comment: on HD Current Visit: Yes (9) HLD (hyperlipidemia) Status: Chronic Current Visit: Yes (10) Iron deficiency anemia Status: Chronic Current Visit: Yes (11) UTI due to Klebsiella species Status: Acute Current Visit: Yes (12) Pulmonary hypertension Status: Chronic Current Visit: Yes (13) LVH (left ventricular hypertrophy) Status: Chronic Current Visit: Yes - Allergies/Procedures Done in Hospital Allergies/Adverse Reactions: Allergies amlodipine [From Norvasc] Allergy (Verified 11/18/18 15:12) Other atorvastatin [From Lipitor] Allergy (Verified 11/18/18 15:12) Other ciprofloxacin [From Cipro] Allergy (Verified 11/18/18 15:12) Other fentanyl Allergy (Verified 11/18/18 15:12) Other metoprolol [From Lopressor] Allergy (Verified 11/18/18 15:12) Other morphine Allergy (Verified 11/18/18 15:12) Other prochlorperazine [From Compazine] Allergy (Verified 11/18/18 15:12) Other rofecoxib [From Vioxx] Allergy (Verified 11/18/18 15:12) Other rosuvastatin [From Crestor] Allergy (Verified 11/18/18 15:12) Other Procedures: 2-D Echocardiogram - Interpretation Summary Normal LV size. Mild concentric left ventricular hypertrophy. Left ventricular systolic function is normal. The estimated ejection fraction is 55 %. Unable to assess diastolic dysfunction due to arrhythmia. 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 H&P will serve as current which was dated: 11/18/18 Day of Discharge: 11/21/18 - Dietary and Speech Recommendations Dietitian Recommendations/Changes: Rec diet change to CHO controlled, cardiac, low sodium diet w/ fluid restriction as indicated. - Follow Up Care Primary Care Physician: Care Physician,No Primary [Primary Care Provider] - Please Follow Up With: Fab Mora MD When: 2-4 weeks
--- NOTE | 2018-11-21 16:18 | PCM.DC.SUM ---
Discharge Date and Diagnosis - Problem List Patient Problems: Active and Suspected Problems Atrial fibrillation with RVR (Acute) CHF (congestive heart failure) (Acute) UTI due to Klebsiella species (Acute) Date of Admission: 11/18/18 Date of Discharge: 11/21/18 - Primary Discharge Diagnosis Active and Suspected Problems Atrial fibrillation with RVR (Acute) Diastolic CHF (congestive heart failure) (Acute) - due to AF with RVR UTI due to Klebsiella species (Acute) Severe sepsis ruled out Demand ischemia due to AF with RVR - Secondary Discharge Diagnosis Chronic Problems Diabetes II (Chronic) ESRD (end stage renal disease) (Chronic) on HD COPD (chronic obstructive pulmonary disease) (Chronic) Iron deficiency anemia (Chronic) HLD (hyperlipidemia) (Chronic) Chronic respiratory failure with hypoxia (Chronic) Pulmonary hypertension (Chronic) LVH (left ventricular hypertrophy) (Chronic) Hospital Course and Treatment Imaging Results: Clinical Impression(s) from Imaging Studies Chest X-Ray 11/18/18 15:34 IMPRESSION: Small bilateral effusions worse on the left side with left lower lobe atelectasis and/or infiltrate and right basilar atelectasis. This is all superimposed on CHF. Electronically Signed: Donte Frankel, at 15:53 EDT , Service support , Laboratory Results - last 24 hr 11/20/18 11/20/18 11/21/18 17:09 22:26 06:54 WBC RBC Hgb Hct MCV MCH MCHC RDW RDW Differential Plt Count MPV Immature Gran % (Auto) Neut % (Auto) Lymph % (Auto) [place] % (Auto) Eos % (Auto) Baso % (Auto) Absolute Neuts (auto) Absolute Lymphs (auto) Total Counted Hypochromasia Anisocytosis Sodium Potassium Chloride Carbon Dioxide Anion Gap BUN Creatinine Estim Creat Clear Calc Est GFR (MDRD) Af Amer Est GFR (MDRD) Non-Af BUN/Creatinine Ratio Glucose Calcium POC Glucose 121 H 183 H 83 11/21/18 11/21/18 11/21/18 07:24 07:24 12:17 WBC 11.8 H RBC 3.47 L Hgb 9.9 L Hct 34.4 L MCV 99.1 H MCH 28.5 MCHC 28.8 L RDW 20.3 H RDW Differential 72.8 H Plt Count 248 MPV 9.6 Immature Gran % (Auto) 0.300 Neut % (Auto) 84.8 H Lymph % (Auto) 6.5 L [place] % (Auto) 6.5 Eos % (Auto) 1.7 Baso % (Auto) 0.2 Absolute Neuts (auto) 10.0 H Absolute Lymphs (auto) 0.77 L Total Counted Not Reportable Hypochromasia 1+ Anisocytosis 3+ Sodium 130 L Potassium 4.4 Chloride 96 L Carbon Dioxide 26.0 Anion Gap 8 BUN 19 H Creatinine 3.11 H Estim Creat Clear Calc 10.19 Est GFR (MDRD) Af Amer 19 L Est GFR (MDRD) Non-Af 15 L BUN/Creatinine Ratio 6.1 L Glucose 75 Calcium 7.9 L POC Glucose 99 Microbiology 11/18/18 20:50 Sputum, Expectorated/Coughed Gram Stain - Final 11/18/18 20:50 Sputum, Expectorated/Coughed Respiratory Culture - Final Mixed normal respiratory rosa. No Haemophilus, Streptococcus pneumoniae, beta-hemolytic Streptococcus or Staphylococcus aureus isolated. 11/18/18 17:30 Blood Culture (Wb) - Anticubital Left Blood Culture - Preliminary No growth in 48 hours. 11/18/18 17:05 Blood Culture (Wb) - Right Forearm Blood Culture - Preliminary No growth in 48 hours. 11/19/18 10:40 Urine Catheter - Catheter Urine Culture - Final Klebsiella pneumoniae sp pneum 11/19/18 10:40 Urine Catheter - Catheter Legionella Antigen - Final 11/19/18 10:40 Urine Catheter - Catheter Streptococcus pneumoniae Antigen (M - Final 11/18/18 15:35 Mucosa - Nasopharyngeal Respiratory Panel (PCR) - Final 11/18/18 15:35 Mucosa - Nose Influenza Types A,B Direct FA (RAEGAN) - Final [facility] Operations: None Procedures: 2-D Echocardiogram - Interpretation Summary Normal LV size. Mild concentric left ventricular hypertrophy. Left ventricular systolic function is normal. The estimated ejection fraction is 55 %. Unable to assess diastolic dysfunction due to arrhythmia. Pulmonary artery systolic pressure is 45 mmHg., Dialysis Summary of Care Provided: The patient is an 83-year-old female with a past medical history of diabetes mellitus type 2, end-stage renal disease on hemodialysis, COPD, iron deficiency anemia, chronic anticoagulation with Xarelto, hyperlipidemia, congestive heart failure and chronic respiratory failure with hypoxemia who presented to the emergency room at [facility] on 11/18/2018 from [facility] complaining of chills. She was recently an inpatient at [facility] in the intensive care unit for 11 days. She was treated for pneumonia and congestive heart failure and was [facility] a [facility] facility. Vital signs upon arrival to the emergency room were temp 98.4, pulse rate 136, blood pressure 84/71, respiratory rate 24 and she was 92% saturated on a 3 L nasal cannula. White blood cell count was 15.6 with a left shift. Hemoglobin was 10.2 with an MCV of 102.5 and the platelets were within normal limits. Serum bicarb was increased at 33 and the BUN was 14 with a creatinine of 3.15. Chest x-ray showed small bilateral pleural effusions, left greater than right, with left lower lobe atelectasis and/or infiltrate. She had 2 doses of 250 mcg of digoxin in the ED to control the rate. Influenza swab was negative. UA showed greater than 100 WBCs per high-power field. Lactic acid was 2.1. She was admitted to the hospital with a diagnosis of acute severe sepsis secondary to suspected healthcare associated pneumonia and started on vancomycin and Zosyn. An MRSA nasal swab was obtained and was negative so vancomycin was discontinued. Cardiology was consulted and she was begun on an amiodarone infusion. An ECHO was ordered and showed a 55% ejection fraction with left ventricular hypertrophy. The estimated right ventricular systolic pressure was 45 she was diagnosed with moderate pulmonary hypertension. The BP's were low in the hospital and she did not tolerate Toprol XL 50 BID and so she was started on Lopressor 12.5 mg BID and she has been able to tolerate this on the day of DC without any significant drop in the BP. The mild elevation in troponin was secondary to demand ischemia related to A. fib with RVR. Were no wall motion abnormalities on the echocardiogram. Blood cultures had no growth after 48 hours. Legionella and streptococcal antigens in the urine were negative. Respiratory panel was negative. A sputum culture grew mixed normal respiratory rosa. The urine culture grew Klebsiella pneumoniae which is pansensitive except for ampicillin. She has been afebrile for the duration of her hospital stay. She has never had a cough and the changes in the left base are no better since the Zosyn. PNA was ruled out. I do not feel that she had severe sepsis. The lactic acid was likely elevated due to the AF with RVR and acute CHF. She had no end organ involvement. She had a UTI due to Klebsiella pneumoniae. She was discharged in 11/21 to [facility] in stable condition. She was placed on Duricef for 5 more days. She should follow up with Dr. 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 She will take amiodarone 200 mg BID for 2 weeks and then decrease to 200 mg once a day. GENERAL: alert, oriented X 3, Cooperative, NAD ORAL: moist mucosa, no mucosal lesions NECK: No JVD, supple, trachea midline LUNGS: CTA, symmetric chest expansion HEART: irreg in AF with controlled rate and with no significant pauses, Normal S1 and S2, no rub, no gallop ABDOMEN: soft, NT, ND, BS present, no guarding with palpation EXTREMITIES: no edema, no cyanosis, no calf tenderness SKIN: No rashes, no breakdown NEUROLOGIC: no focal neurologic deficits PSYCH: appropriate, normal affect, pleasant This note was generated with [email or web address] dictation software. It may contain incorrect words, spelling, and punctuation that were not noted in checking the note before signing. Patient Problems: Active and Suspected Problems Atrial fibrillation with RVR (Acute) CHF (congestive heart failure) (Acute) UTI due to Klebsiella species (Acute) - Physical Exam Vital Signs Temp Pulse Resp BP Pulse Ox 97.8 F 86 18 109/53 L 98 11/21/18 12:31 11/21/18 15:13 11/21/18 12:31 11/21/18 12:36 11/21/18 12:31 Oxygen Flow Rate (L/min) 1 Oxygen Delivery Method Nasal Cannula Weight: 152 lb 5.431 oz Body Mass Index (BMI) 29.7 Intake and Output for Last 24 Hours 11/19/18 11/20/18 11/21/18 23:59 23:59 23:59 Intake Total 1075.7 / 1075.7 751.8 / 751.8 521 / 521 Output Total 0 / 0 0 / 0 Balance 1075.7 / 1075.7 751.8 / 751.8 521 / 521 Microbiology Past 72 Hours 11/18/18 20:50 Gram Stain - Final Sputum, Expectorated/Coughed Respiratory Culture - Final Mixed normal respiratory rosa. No Haemophilus, Streptococcus pneumoniae, beta-hemolytic Streptococcus or Staphylococcus aureus isolated. 11/18/18 17:30 Blood Culture - Preliminary Blood Culture (Wb) - Anticubital Left No growth in 48 hours. 11/18/18 17:05 Blood Culture - Preliminary Blood Culture (Wb) - Right Forearm No growth in 48 hours. 11/19/18 10:40 Urine Culture - Final Urine Catheter - Catheter Klebsiella pneumoniae sp pneum 11/19/18 10:40 Legionella Antigen - Final Urine Catheter - Catheter 11/19/18 10:40 Streptococcus pneumoniae Antigen (M - Final Urine Catheter - Catheter 11/18/18 15:35 Respiratory Panel (PCR) - Final Mucosa - Nasopharyngeal 11/18/18 15:35 Influenza Types A,B Direct FA (RAEGAN) - Final Mucosa - Nose Laboratory Tests Past 24 Hrs 11/21/18 11/21/18 11/21/18 07:24 07:24 07:24 WBC 11.8 H RBC 3.47 L Hgb 9.9 L Hct 34.4 L MCV 99.1 H MCH 28.5 MCHC 28.8 L RDW 20.3 H RDW Differential 72.8 H Plt Count 248 MPV 9.6 Immature Gran % (Auto) 0.300 Neut % (Auto) 84.8 H Lymph % (Auto) 6.5 L [place] % (Auto) 6.5 Eos % (Auto) 1.7 Baso % (Auto) 0.2 Absolute Neuts (auto) 10.0 H Absolute Lymphs (auto) 0.77 L Total Counted Not Reportable Hypochromasia 1+ Anisocytosis 3+ Sodium 130 L Potassium 4.4 Chloride 96 L Carbon Dioxide 26.0 Anion Gap 8 BUN 19 H Creatinine 3.11 H Estim Creat Clear Calc 10.19 Est GFR (MDRD) Af Amer 19 L Est GFR (MDRD) Non-Af 15 L BUN/Creatinine Ratio 6.1 L Glucose 75 Calcium 7.9 L Hep Bs Antigen Pending POC Glucose 11/21/18 11/21/18 11/20/18 12:17 06:54 22:26 POC Glucose 99 83 183 H 11/20/18 17:09 POC Glucose 121 H Home Medications: Medications to take at Discharge Acetaminophen [Tylenol] 650 mg PO Q4H PRN PRN 11/18/18 Ascorbic Acid [Vitamin C] 500 mg PO DAILY@0800 11/18/18 Aspirin [Aspirin, Baby] 81 mg PO DAILY@0800 11/18/18 Atorvastatin Calcium [Lipitor] 40 mg PO QHS 11/18/18 Cholecalciferol (VIT D3) [Vitamin D3] 1,000 unit PO DAILY 11/18/18 Docusate Sodium [Colace] 100 mg PO BID 11/18/18 Ferrous Sulfate [Iron] 325 mg PO DAILY 11/18/18 Gabapentin [Neurontin] 100 mg PO DAILY 11/18/18 Insulin Detemir [Levemir Flextouch] 8 unit SQ DAILY 11/18/18 Melatonin/Pyridoxine HCl (B6) [Melatonin 1 mg Tablet] 1 each PO QHS 11/18/18 Multivitamin with Minerals [Multiple Vitamin] 1 tab PO DAILY 11/18/18 Omeprazole 20 mg PO DAILY 11/18/18 Rivaroxaban [Xarelto] 15 mg PO DAILY 11/18/18 Amiodarone HCl [Cordarone] 200 mg PO BID #1 tablet 11/21/18 Cefadroxil [Duricef] 500 mg PO BID #11 cap 11/21/18 Metoprolol Tartrate [Lopressor (beta graeme)] 12.5 mg PO BID tablet 11/21/18 Nystatin Powder [Mycostatin Powder] 1 applic TOPICAL BID bottle 11/21/18 Following Prescrptions Were Given to Patient: Amiodarone HCl [Cordarone] 200 mg PO BID #1 tablet Cefadroxil [Duricef] 500 mg PO BID #11 cap Primary Care Physician: Care Physician,No Primary [Primary Care Provider] - Please Follow Up With: Fab Mora MD When: 2-4 weeks Disposition: [facility] facility Minutes spent on discharge:: 35 Patient Condition:: Stable Medical Necessity - Tobacco Use Smoking Status: Never smoker Tobacco Use: Non-smoker Meaningful Use Info Meaningful Use Diagnoses (Choose all that apply): CHF - CHF JESSICA/ARB ordered at discharge?: No Reason JESSICA/ARB not ordered?: Worsening renal disease Documented LVEF (%): 55 Code Visit Inpatient E&M: 02713 Disch Hosp
--- NOTE | 2018-11-21 16:38 | DS.PCM_ITS ---
Discharge Date and Diagnosis - Problem List Patient Problems: Active and Suspected Problems Atrial fibrillation with RVR (Acute) CHF (congestive heart failure) (Acute) UTI due to Klebsiella species (Acute) Date of Admission: 11/18/18 Date of Discharge: 11/21/18 - Primary Discharge Diagnosis Active and Suspected Problems Atrial fibrillation with RVR (Acute) Diastolic CHF (congestive heart failure) (Acute) - due to AF with RVR UTI due to Klebsiella species (Acute) Severe sepsis ruled out Demand ischemia due to AF with RVR - Secondary Discharge Diagnosis Chronic Problems Diabetes II (Chronic) ESRD (end stage renal disease) (Chronic) on HD COPD (chronic obstructive pulmonary disease) (Chronic) Iron deficiency anemia (Chronic) HLD (hyperlipidemia) (Chronic) Chronic respiratory failure with hypoxia (Chronic) Pulmonary hypertension (Chronic) LVH (left ventricular hypertrophy) (Chronic) Hospital Course and Treatment Imaging Results: Clinical Impression(s) from Imaging Studies Chest X-Ray 11/18/18 15:34 IMPRESSION: Small bilateral effusions worse on the left side with left lower lobe atelectasis and/or infiltrate and right basilar atelectasis. This is all superimposed on CHF. Electronically Signed: Donte Frankel, at 15:53 EDT , Service support , Laboratory Results - last 24 hr 11/20/18 11/20/18 11/21/18 17:09 22:26 06:54 WBC RBC Hgb Hct MCV MCH MCHC RDW RDW Differential Plt Count MPV Immature Gran % (Auto) Neut % (Auto) Lymph % (Auto) Ritchie % (Auto) Eos % (Auto) Baso % (Auto) Absolute Neuts (auto) Absolute Lymphs (auto) Total Counted Hypochromasia Anisocytosis Sodium Potassium Chloride Carbon Dioxide Anion Gap BUN Creatinine Estim Creat Clear Calc Est GFR (MDRD) Af Amer Est GFR (MDRD) Non-Af BUN/Creatinine Ratio Glucose Calcium POC Glucose 121 H 183 H 83 11/21/18 11/21/18 11/21/18 07:24 07:24 12:17 WBC 11.8 H RBC 3.47 L Hgb 9.9 L Hct 34.4 L MCV 99.1 H MCH 28.5 MCHC 28.8 L RDW 20.3 H RDW Differential 72.8 H Plt Count 248 MPV 9.6 Immature Gran % (Auto) 0.300 Neut % (Auto) 84.8 H Lymph % (Auto) 6.5 L Ritchie % (Auto) 6.5 Eos % (Auto) 1.7 Baso % (Auto) 0.2 Absolute Neuts (auto) 10.0 H Absolute Lymphs (auto) 0.77 L Total Counted Not Reportable Hypochromasia 1+ Anisocytosis 3+ Sodium 130 L Potassium 4.4 Chloride 96 L Carbon Dioxide 26.0 Anion Gap 8 BUN 19 H Creatinine 3.11 H Estim Creat Clear Calc 10.19 Est GFR (MDRD) Af Amer 19 L Est GFR (MDRD) Non-Af 15 L BUN/Creatinine Ratio 6.1 L Glucose 75 Calcium 7.9 L POC Glucose 99 Microbiology 11/18/18 20:50 Sputum, Expectorated/Coughed Gram Stain - Final 11/18/18 20:50 Sputum, Expectorated/Coughed Respiratory Culture - Final Mixed normal respiratory rosa. No Haemophilus, Streptococcus pneumoniae, beta-hemolytic Streptococcus or Staphylococcus aureus isolated. 11/18/18 17:30 Blood Culture (Wb) - Anticubital Left Blood Culture - Preliminary No growth in 48 hours. 11/18/18 17:05 Blood Culture (Wb) - Right Forearm Blood Culture - Preliminary No growth in 48 hours. 11/19/18 10:40 Urine Catheter - Catheter Urine Culture - Final Klebsiella pneumoniae sp pneum 11/19/18 10:40 Urine Catheter - Catheter Legionella Antigen - Final 11/19/18 10:40 Urine Catheter - Catheter Streptococcus pneumoniae Antigen (M - Final 11/18/18 15:35 Mucosa - Nasopharyngeal Respiratory Panel (PCR) - Final 11/18/18 15:35 Mucosa - Nose Influenza Types A,B Direct FA (RAEGAN) - Final [place] [facility] Operations: None Procedures: 2-D Echocardiogram - Interpretation Summary Normal LV size. Mild concentric left ventricular hypertrophy. Left ventricular systolic function is normal. The estimated ejection fraction is 55 %. Unable to assess diastolic dysfunction due to arrhythmia. Pulmonary artery systolic pressure is 45 mmHg., Dialysis Summary of Care Provided: The patient is an 83-year-old female with a past medical history of diabetes mellitus type 2, end-stage renal disease on hemodialysis, COPD, iron deficiency anemia, chronic anticoagulation with Xarelto, hyperlipidemia, congestive heart failure and chronic respiratory failure with hypoxemia who presented to the emergency room at [facility] on 11/18/2018 from [facility] complaining of chills. She was recently an inpatient at [facility] in the intensive care unit for 11 days. She was treated for pneumonia and congestive heart failure and was [facility]. Vital signs upon arrival to the emergency room were temp 98.4, pulse rate 136, blood pressure 84/71, respiratory rate 24 and she was 92% saturated on a 3 L nasal cannula. White blood cell count was 15.6 with a left shift. Hemoglobin was 10.2 with an MCV of 102.5 and the platelets were within normal limits. Serum bicarb was increased at 33 and the BUN was 14 with a c reatinine of 3.15. Chest x-ray showed small bilateral pleural effusions, left greater than right, with left lower lobe atelectasis and/or infiltrate. She had 2 doses of 250 mcg of digoxin in the ED to control the rate. Influenza swab was negative. UA showed greater than 100 WBCs per high-power field. Lactic acid was 2.1. She was admitted to the hospital with a diagnosis of acute severe sepsis secondary to suspected healthcare associated pneumonia and started on vancomycin and Zosyn. An MRSA nasal swab was obtained and was negative so vancomycin was discontinued. Cardiology was consulted and she was begun on an amiodarone infusion. An ECHO was ordered and showed a 55% ejection fraction with left ventricular hypertrophy. The estimated right ventricular systolic pressure was 45 she was diagnosed with moderate pulmonary hypertension. The BP's were low in the hospital and she did not tolerate Toprol XL 50 BID and so she was started on Lopressor 12.5 mg BID and she has been able to tolerate this on the day of DC without any significant drop in the BP. The mild elevation in troponin was secondary to demand ischemia related to A. fib with RVR. Were no wall motion abnormalities on the echocardiogram. Blood cultures had no growth after 48 hours. Legionella and streptococcal antigens in the urine were negative. Respiratory panel was negative. A sputum culture grew mixed normal respiratory rosa. The urine culture grew Klebsiella pneumoniae which is pansensitive except for ampicillin. She has been afebrile for the duration of her hospital stay. She has never had a cough and the changes in the left base are no better since the Zosyn. PNA was ruled out. I do not feel that she had severe sepsis. The lactic acid was likely elevated due to the AF with RVR and acute CHF. She had no end organ involvement. She had a UTI due to Klebsiella pneumoniae. She was discharged in 11/21 to [facility] in stable condition. She was placed on Duricef for 5 more days. She should follow up with Dr. 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 She will take amiodarone 200 mg BID for 2 weeks and then decrease to 200 mg once a day. GENERAL: alert, oriented X 3, Cooperative, NAD ORAL: moist mucosa, no mucosal lesions NECK: No JVD, supple, trachea midline LUNGS: CTA, symmetric chest expansion HEART: irreg in AF with controlled rate and with no significant pauses, Normal S1 and S2, no rub, no gallop ABDOMEN: soft, NT, ND, BS present, no guarding with palpation EXTREMITIES: no edema, no cyanosis, no calf tenderness SKIN: No rashes, no breakdown NEUROLOGIC: no focal neurologic deficits PSYCH: appropriate, normal affect, pleasant This note was generated with [employer] Direct dictation software. It may contain incorrect words, spelling, and punctuation that were not noted in checking the note before signing. Patient Problems: Active and Suspected Problems Atrial fibrillation with RVR (Acute) CHF (congestive heart failure) (Acute) UTI due to Klebsiella species (Acute) - Physical Exam Vital Signs Temp Pulse Resp BP Pulse Ox 97.8 F 86 18 109/53 L 98 11/21/18 12:31 11/21/18 15:13 11/21/18 12:31 11/21/18 12:36 11/21/18 12:31 Oxygen Flow Rate (L/min) 1 Oxygen Delivery Method Nasal Cannula Weight: 152 lb 5.431 oz Body Mass Index (BMI) 29.7 Intake and Output for Last 24 Hours 11/19/18 11/20/18 11/21/18 23:59 23:59 23:59 Intake Total 1075.7 / 1075.7 751.8 / 751.8 521 / 521 Output Total 0 / 0 0 / 0 Balance 1075.7 / 1075.7 751.8 / 751.8 521 / 521 Microbiology Past 72 Hours 11/18/18 20:50 Gram Stain - Final Sputum, Expectorated/Coughed Respiratory Culture - Final Mixed normal respiratory rosa. No Haemophilus, Streptococcus pneumoniae, beta-hemolytic Streptococcus or Staphylococcus aureus isolated. 11/18/18 17:30 Blood Culture - Preliminary Blood Culture (Wb) - Anticubital Left No growth in 48 hours. 11/18/18 17:05 Blood Culture - Preliminary Blood Culture (Wb) - Right Forearm No growth in 48 hours. 11/19/18 10:40 Urine Culture - Final Urine Catheter - Catheter Klebsiella pneumoniae sp pneum 11/19/18 10:40 Legionella Antigen - Final Urine Catheter - Catheter 11/19/18 10:40 Streptococcus pneumoniae Antigen (M - Final Urine Catheter - Catheter 11/18/18 15:35 Respiratory Panel (PCR) - Final Mucosa - Nasopharyngeal 11/18/18 15:35 Influenza Types A,B Direct FA (RAEGAN) - Final Mucosa - Nose Laboratory Tests Past 24 Hrs 11/21/18 11/21/18 11/21/18 07:24 07:24 07:24 WBC 11.8 H RBC 3.47 L Hgb 9.9 L Hct 34.4 L MCV 99.1 H MCH 28.5 MCHC 28.8 L RDW 20.3 H RDW Differential 72.8 H Plt Count 248 MPV 9.6 Immature Gran % (Auto) 0.300 Neut % (Auto) 84.8 H Lymph % (Auto) 6.5 L Ritchie % (Auto) 6.5 Eos % (Auto) 1.7 Baso % (Auto) 0.2 Absolute Neuts (auto) 10.0 H Absolute Lymphs (auto) 0.77 L Total Counted Not Reportable Hypochromasia 1+ Anisocytosis 3+ Sodium 130 L Potassium 4.4 Chloride 96 L Carbon Dioxide 26.0 Anion Gap 8 BUN 19 H Creatinine 3.11 H Estim Creat Clear Calc 10.19 Est GFR (MDRD) Af Amer 19 L Est GFR (MDRD) Non-Af 15 L BUN/Creatinine Ratio 6.1 L Glucose 75 Calcium 7.9 L Hep Bs Antigen Pending POC Glucose 11/21/18 11/21/18 11/20/18 12:17 06:54 22:26 POC Glucose 99 83 183 H 11/20/18 17:09 POC Glucose 121 H Home Medications: Medications to take at Discharge Acetaminophen [Tylenol] 650 mg PO Q4H PRN PRN 03/11/19 Ascorbic Acid [Vitamin C] 500 mg PO DAILY@0800 11/18/18 Aspirin [Aspirin, Baby] 81 mg PO DAILY@0800 11/18/18 Atorvastatin Calcium [Lipitor] 40 mg PO QHS 11/18/18 Cholecalciferol (VIT D3) [Vitamin D3] 1,000 unit PO DAILY 11/18/18 Docusate Sodium [Colace] 100 mg PO BID 11/18/18 Ferrous Sulfate [Iron] 325 mg PO DAILY 11/18/18 Gabapentin [Neurontin] 100 mg PO DAILY 11/18/18 Insulin Detemir [Levemir Flextouch] 8 unit SQ DAILY 11/18/18 Melatonin/Pyridoxine HCl (B6) [Melatonin 1 mg Tablet] 1 each PO QHS 11/18/18 Multivitamin with Minerals [Multiple Vitamin] 1 tab PO DAILY 11/18/18 Omeprazole 20 mg PO DAILY 11/18/18 Rivaroxaban [Xarelto] 15 mg PO DAILY 11/18/18 Amiodarone HCl [Cordarone] 200 mg PO BID #1 tablet 11/21/18 Cefadroxil [Duricef] 500 mg PO BID #11 cap 11/21/18 Metoprolol Tartrate [Lopressor (beta graeme)] 12.5 mg PO BID tablet 11/21/18 Nystatin Powder [Mycostatin Powder] 1 applic TOPICAL BID bottle 11/21/18 Following Prescrptions Were Given to Patient: Amiodarone HCl [Cordarone] 200 mg PO BID #1 tablet Cefadroxil [Duricef] 500 mg PO BID #11 cap Primary Care Physician: Care Physician,No Primary [Primary Care Provider] - Please Follow Up With: Fab Mora MD When: 2-4 weeks Disposition: Snf facility Minutes spent on discharge:: 35 Patient Condition:: Stable Medical Necessity - Tobacco Use Smoking Status: Never smoker Tobacco Use: Non-smoker Meaningful Use Info Meaningful Use Diagnoses (Choose all that apply): CHF - CHF JESSICA/ARB ordered at discharge?: No Reason JESSICA/ARB not ordered?: Worsening renal disease Documented LVEF (%): 55 Code Visit Inpatient E&M: 71361 Disch Hosp
--- NOTE | 2018-11-21 16:48 | CASEMGMT ---
Social Work Pt is up for discharge. FIONA met with pt in room and pt is pleased to return to [facility] on this date. Phone call placed to Ketty at [facility] and informed of d/c. Orders faxed. Transportation arranged with Adrian Marie for 6:00 pickup via cot. Phone call to pt son with pt permission and informed of d/c plan. ZACK [place]
[2018-11-21 17:40] LABS: Bedside Glucose 113 mg/dL (70-110)
--- NOTE | 2018-11-21 18:44 | NURSING ---
report called to se Jerez
[2018-11-22 08:27] LABS: HEPATITIS B SURFACE AG Negative (Negative)
--- NOTE | 2018-11-22 09:44 | CASEMGMT ---
This JAVY MACK received message from Nissa at [facility] with concerns about pt's freq admissions. This is pt's 1st visit to [facility]. Attempted to call Nissa back but the number she provided goes to a fax machine. SStherman PALAFOX CM
== END 2018-11-21 18:29 | disposition skilled nursing facility (03) | DRG 308 ==
LOC: ED 16:58 → ICU 17:35 → PCU 11-20 14:54
PROVIDERS: Internal Medicine Nephrology; Physician Assistant; Admitting Provider Internal Medicine; Emergency Provider Emergency Medicine; Visit Provider Internal Medicine
DX: I48.91 Unspecified atrial fibrillation (principal); N18.6 End stage renal disease; I50.31 Acute diastolic (congestive) heart failure; I13.2 Hypertensive heart and chronic kidney disease with heart failure and with stage 5 chronic kidney disease, or end stage renal disease; J96.11 Chronic respiratory failure with hypoxia; N39.0 Urinary tract infection, site not specified; I24.8 Other forms of acute ischemic heart disease; Z99.81 Dependence on supplemental oxygen; Z66 Do not resuscitate; Z99.2 Dependence on renal dialysis; E11.22 Type 2 diabetes mellitus with diabetic chronic kidney disease; R53.81 Other malaise; J44.9 Chronic obstructive pulmonary disease, unspecified; E78.5 Hyperlipidemia, unspecified; D50.9 Iron deficiency anemia, unspecified; E66.9 Obesity, unspecified; Y95 Nosocomial condition; I27.20 Pulmonary hypertension, unspecified; B96.1 Klebsiella pneumoniae [K. pneumoniae] as the cause of diseases classified elsewhere; Z79.01 Long term (current) use of anticoagulants; Z68.29 Body mass index [BMI] 29.0-29.9, adult; Z87.440 Personal history of urinary (tract) infections; I51.7 Cardiomegaly; Z79.4 Long term (current) use of insulin
CPT/HCPCS: 36415; 71045; 71046; 80048; 80162; 81001; 82962; 83605; 83735; 83880; 84484; 85025; 85610; 87040; 87070; 87077; 87086; 87088; 87186; 87205; 87340; 87449; 87633; 87641; 87804; 90937; 93005; 93306; 94640; 94667; 94668; 97162; 97165; 97530; 97802; 99285; J0885; J7040; J7050; A4216; G0257

== ENCOUNTER → 2018-11-26 14:30 | Outpatient (CLI) | payer MEDICAID, MEDICARE, SELFPAY ==
[2018-11-18 18:04] VITALS: BMI 29.7
--- NOTE | 2018-11-26 14:33 | VDUE_ITS ---
Reason For Study: Pre op AV fistula graft Right Arm Left Arm Right Cephalic Vein at the wrist measures .12 Cephalic v non-compressible from wrist to x .12 cm. above antecubital space. Right Cephalic Vein in the forearm Left Cephalic Vein at mid bicep measures .083 measures .16 x .17 cm. x .095 cm. Right Cephalic Vein below antecub Left Cephalic Vein at the shoulder measures .10 x .12 cm. measures .088 x .10 cm. Right Cephalic Vein above antecub Basilic diminutive - unable to assess measures .066 x .069 cm. Right Cephalic Vein mid bicep measures .098 Brachial artery - .32 x .32 cm with a x .11 cm. velocity of 99.5 cm/s Right Cephalic Vein at the shoulder Radial artery - .12 x .13 cm with a velocity measures .091 x .088 cm. of 78.2 cm/s. Basilic v not visualized Brachial artery - .24 x .23 cm with a velocity of 95.3 cm/s Radial artery - .12 x .14 cm with a velocity of 48.4 cm/s. Interpretation Summary Diminitive right cephalic vein throughout with non-visualized right basilic vein. Superficial thrombophlebitis left cephalic vein of the forearm. Diminutive left upper arm cephalic vein Diminutive left basilic vein Diminutive bilateral radial arteries Small right brachial artery Borderline left brachial artery Patient does not appear to be a candidate for AV fistula creation Ordering Physician: Hollie Solomon Referring Physician: Hollie Solomon Performed By: Rohini Durham RVT ?
== END ==
PROVIDERS: Referring Provider Internal Medicine Nephrology; Visit Provider Internal Medicine Nephrology
DX: Z01.818 Encounter for other preprocedural examination (principal); N18.6 End stage renal disease
CPT/HCPCS: 93970